=== PATIENT | male | born 1945 | race Caucasian/White ===

== ENCOUNTER 2019-11-25 17:41 | Inpatient (IN) | payer MEDICARE ==
[2019-11-25] MEDS ORDERED: SODIUM CHLORIDE 0.9% 500 ML 500 ML IV STA (17:59)
[2019-11-25] MEDS ORDERED: IPRATROPIUM-ALBUTEROL 3 ML NEB INHALATION STA (18:00)
[2019-11-25] MEDS ORDERED: ACETAMINOPHEN TAB 500 MG TAB PO STA (18:00)
[2019-11-25 18:33] LABS: VBG PH 7.36 (7.31-7.41)
[2019-11-25 18:36] LABS: Basophils % (A) 1 %; Eosinophils # (A) 0.1 k/uL (0-0.7); Eosinophils % (A) 1 %; HCT 39.8 % (39.0-53.0); HGB 13.1 gm/dL (13.0-17.5); Lymphocytes # (A) 0.3 k/uL (1.0-4.8); Lymphocytes % (A) 5 %; MCH 30.6 pg (25.0-35.0); MCHC 32.8 g/dL (31.0-37.0); MCV 93.3 fL (80.0-100.0); Mean Platelet Volume 8.5; Monocytes # (A) 0.2 k/uL (0-1.0); Monocytes % (A) 3 %; Neutrophils # (A) 6.2 k/uL (1.3-7.7); Neutrophils % (A) 90 %; Platelet Count 159 k/uL (150-450); RBC 4.27 m/uL (4.30-5.90); RDW 13.4 % (11.5-15.5); WBC 6.9 k/uL (3.8-10.6)
[2019-11-25 18:40] LABS: Albumin 4.3 g/dL (3.5-5.0); Calcium 9.2 mg/dL (8.4-10.2); INR 2.5 (<1.2); Partial Thromboplastin Time 32.7 sec (22.0-30.0); Prothrombin Time 24.3 sec (9.0-12.0); Total Bilirubin 0.8 mg/dL (0.2-1.3); Total Protein 7.1 g/dL (6.3-8.2)
--- NOTE | 2019-11-25 19:07 | CT ---
EXAMINATION TYPE: CT brain wo con DATE OF EXAM: 11/25/2019 COMPARISON: None HISTORY: Altered mental status. CT DLP: 1182.4 mGycm Automated exposure control for dose reduction was used. Exam performed with no contrast. There is cerebral cortical atrophy. There is no mass effect nor midline shift. There is no sign of in tracranial hemorrhage. Calvarium is intact. IMPRESSION: Cerebral atrophy. No acute intracranial abnormality.
[2019-11-25] MEDS ORDERED: methylPREDNISolone SOD SUCCI 125 MG/2 ML VIAL IV STA (19:08)
--- NOTE | 2019-11-25 19:16 | XR ---
EXAMINATION TYPE: XR chest 2V DATE OF EXAM: 11/25/2019 COMPARISON: NONE HISTORY: Difficulty breathing TECHNIQUE: 2 views FINDINGS: Heart is normal. Lungs are clear of consolidation. There is some coarsening of the lower lo be lung markings. There are no hilar masses. Bony thorax is intact. IMPRESSION: Minimal pulmonary fibrotic changes. Normal heart. No heart failure.
--- NOTE | 2019-11-25 19:39 | ED ---
SOB HPI - General Chief Complaint: Shortness of Breath Stated Complaint: Weakness,Cough Time Seen by Provider: 11/25/19 17:50 Source: patient, EMS, RN notes reviewed Mode of arrival: EMS Limitations: no limitations - History of Present Illness Initial Comments: 74-year-old male presents emergency department via EMS from home with family concerns for weakness, difficulty breathing. Patient had increasing labored breathing or last couple days. Patient's found to be febrile in emergency department. Patient herself has no complaint other than he feels very weak. Family states that he is unable to even stand. Patient states that his legs to feel weak. Patient family states that he also been confused but has had no head injury recently. Patient denies headache, blurred vision or focal weakness. Patient does take Coumadin for clotting disorder. Patient is a daily smoker history of COPD. Patient has nonproductive cough no recent Tylenol Motrin for his fever. - Related Data Allergies Allergy/AdvReac Type Severity Reaction Status Date / Time No Known Allergies Allergy Verified 11/25/19 18:21 Review of Systems ROS Statement: Those systems with pertinent positive or pertinent negative responses have been documented in the HPI. ROS Other: All systems not noted in ROS Statement are negative. Past Medical History Past Medical History: Unable to Obtain History of Any Multi-Drug Resistant Organisms: Unobtainable Past Surgical History: Unable to Obtain Past Psychological History: Unable to Obtain Smoking Status: Current every day smoker Past Alcohol Use History: Daily Past Drug Use History: None Reported General Exam Limitations: no limitations General appearance: alert, in no apparent distress Head exam: Present: atraumatic, normocephalic, normal inspection Eye exam: Present: normal appearance, PERRL, EOMI. Absent: scleral icterus, conjunctival injection, periorbital swelling ENT exam: Present: normal exam, normal oropharynx, mucous membranes moist Neck exam: Present: normal inspection, full ROM. Absent: tenderness, meningismus, lymphadenopathy Respiratory exam: Present: respiratory distress (Mild to moderate), wheezes. Absent: normal lung sounds bilaterally, rales, rhonchi, stridor Cardiovascular Exam: Present: regular rate, normal rhythm, normal heart sounds. Absent: systolic murmur, diastolic murmur, rubs, gallop, clicks GI/Abdominal exam: Present: soft, normal bowel sounds. Absent: distended, tenderness, guarding, rebound, rigid Neurological exam: Present: alert, oriented X3, CN II-XII intact Skin exam: Present: warm, dry, intact, normal color. Absent: rash Course Vital Signs 11/25/19 11/25/19 11/25/19 17:45 19:22 19:40 Temperature 103 F H Pulse Rate 93 85 89 Respiratory 20 20 20 Rate Blood Pressure 147/129 O2 Sat by Pulse 95 Oximetry 11/25/19 11/25/19 20:09 20:25 Temperature 100.9 F H Pulse Rate 95 Respiratory 18 Rate Blood Pressure 120/68 O2 Sat by Pulse 97 Oximetry Medical Decision Making - Medical Decision Making 34 show male presented for fever, dyspnea, weakness. Labs appear to be unremarkable at this time. Patient continues to have some dyspnea, difficulty completing sentences. Patient is unable to ambulate secondary shortness breath and weakness. Patient will be admitted for COPD exacerbation was started on IV antibiotics, steroids further treatment. - Lab Data Result diagrams: 11/25/19 18:15 11/25/19 18:15 Lab Results 11/25/19 11/25/19 11/25/19 Range/Units 18:15 18:15 18:15 WBC 6.9 (3.8-10.6) k/uL RBC 4.27 L (4.30-5.90) m/uL Hgb 13.1 (13.0-17.5) gm/dL Hct 39.8 (39.0-53.0) % MCV 93.3 (80.0-100.0) fL MCH 30.6 (25.0-35.0) pg MCHC 32.8 (31.0-37.0) g/dL RDW 13.4 (11.5-15.5) % Plt Count 159 (150-450) k/uL Neutrophils % 90 % Lymphocytes % 5 % Monocytes % 3 % Eosinophils % 1 % Basophils % 1 % Neutrophils # 6.2 (1.3-7.7) k/uL Lymphocytes # 0.3 L (1.0-4.8) k/uL Monocytes # 0.2 (0-1.0) k/uL Eosinophils # 0.1 (0-0.7) k/uL Basophils # 0.0 (0-0.2) k/uL PT (9.0-12.0) sec INR (<1.2) APTT (22.0-30.0) sec VBG pH (7.31-7.41) VBG pCO2 (37-51) mmHg VBG HCO3 (24-28) mmol/L Sodium 139 (137-145) mmol/L Potassium 4.0 (3.5-5.1) mmol/L Chloride 104 (98-107) mmol/L Carbon Dioxide 28 (22-30) mmol/L Anion Gap 7 mmol/L BUN 15 (9-20) mg/dL Creatinine 0.98 (0.66-1.25) mg/dL Est GFR (CKD-EPI)AfAm 87 (>60 ml/min/1.73 sqM) Est GFR (CKD-EPI)NonAf 75 (>60 ml/min/1.73 sqM) Glucose 114 H (74-99) mg/dL Plasma Lactic Acid Marcellus 1.2 (0.7-2.0) mmol/L Calcium 9.2 (8.4-10.2) mg/dL Magnesium 2.0 (1.6-2.3) mg/dL Total Bilirubin 0.8 (0.2-1.3) mg/dL AST 19 (17-59) U/L ALT 11 (4-49) U/L Alkaline Phosphatase 93 (38-126) U/L Troponin I (0.000-0.034) ng/mL NT-Pro-B Natriuret Pep pg/mL Total Protein 7.1 (6.3-8.2) g/dL Albumin 4.3 (3.5-5.0) g/dL Influenza Type A RNA (Not Detectd) Influenza Type B (PCR) (Not Detectd) 11/25/19 11/25/19 11/25/19 Range/Units 18:15 18:15 18:15 WBC (3.8-10.6) k/uL RBC (4.30-5.90) m/uL Hgb (13.0-17.5) gm/dL Hct (39.0-53.0) % MCV (80.0-100.0) fL MCH (25.0-35.0) pg MCHC (31.0-37.0) g/dL RDW (11.5-15.5) % Plt Count (150-450) k/uL Neutrophils % % Lymphocytes % % Monocytes % % Eosinophils % % Basophils % % Neutrophils # (1.3-7.7) k/uL Lymphocytes # (1.0-4.8) k/uL Monocytes # (0-1.0) k/uL Eosinophils # (0-0.7) k/uL Basophils # (0-0.2) k/uL PT 24.3 H (9.0-12.0) sec INR 2.5 H (<1.2) APTT 32.7 H (22.0-30.0) sec VBG pH (7.31-7.41) VBG pCO2 (37-51) mmHg VBG HCO3 (24-28) mmol/L Sodium (137-145) mmol/L Potassium (3.5-5.1) mmol/L Chloride (98-107) mmol/L Carbon Dioxide (22-30) mmol/L Anion Gap mmol/L BUN (9-20) mg/dL Creatinine (0.66-1.25) mg/dL Est GFR (CKD-EPI)AfAm (>60 ml/min/1.73 sqM) Est GFR (CKD-EPI)NonAf (>60 ml/min/1.73 sqM) Glucose (74-99) mg/dL Plasma Lactic Acid Marcellus (0.7-2.0) mmol/L Calcium (8.4-10.2) mg/dL Magnesium (1.6-2.3) mg/dL Total Bilirubin (0.2-1.3) mg/dL AST (17-59) U/L ALT (4-49) U/L Alkaline Phosphatase (38-126) U/L Troponin I <0.012 (0.000-0.034) ng/mL NT-Pro-B Natriuret Pep 171 pg/mL Total Protein (6.3-8.2) g/dL Albumin (3.5-5.0) g/dL Influenza Type A RNA (Not Detectd) Influenza Type B (PCR) (Not Detectd) 11/25/19 11/25/19 Range/Units 18:15 19:40 WBC (3.8-10.6) k/uL RBC (4.30-5.90) m/uL Hgb (13.0-17.5) gm/dL Hct (39.0-53.0) % MCV (80.0-100.0) fL MCH (25.0-35.0) pg MCHC (31.0-37.0) g/dL RDW (11.5-15.5) % Plt Count (150-450) k/uL Neutrophils % % Lymphocytes % % Monocytes % % Eosinophils % % Basophils % % Neutrophils # (1.3-7.7) k/uL Lymphocytes # (1.0-4.8) k/uL Monocytes # (0-1.0) k/uL Eosinophils # (0-0.7) k/uL Basophils # (0-0.2) k/uL PT (9.0-12.0) sec INR (<1.2) APTT (22.0-30.0) sec VBG pH 7.36 (7.31-7.41) VBG pCO2 50 (37-51) mmHg VBG HCO3 28 (24-28) mmol/L Sodium (137-145) mmol/L Potassium (3.5-5.1) mmol/L Chloride (98-107) mmol/L Carbon Dioxide (22-30) mmol/L Anion Gap mmol/L BUN (9-20) mg/dL Creatinine (0.66-1.25) mg/dL Est GFR (CKD-EPI)AfAm (>60 ml/min/1.73 sqM) Est GFR (CKD-EPI)NonAf (>60 ml/min/1.73 sqM) Glucose (74-99) mg/dL Plasma Lactic Acid Marcellus (0.7-2.0) mmol/L Calcium (8.4-10.2) mg/dL Magnesium (1.6-2.3) mg/dL Total Bilirubin (0.2-1.3) mg/dL AST (17-59) U/L ALT (4-49) U/L Alkaline Phosphatase (38-126) U/L Troponin I (0.000-0.034) ng/mL NT-Pro-B Natriuret Pep pg/mL Total Protein (6.3-8.2) g/dL Albumin (3.5-5.0) g/dL Influenza Type A RNA Not Detected (Not Detectd) Influenza Type B (PCR) Not Detected (Not Detectd) Disposition Clinical Impression: COPD exacerbation, Weakness, Fever Disposition: ADMITTED IP TO THIS HOSP Condition: Fair Referrals: Fabian Whatley DO [Primary Care Provider] - 1-2 days
[2019-11-25] MEDS ORDERED: SODIUM CHLORIDE 0.9% 1,000 ML IV ONE (20:10)
[2019-11-25] MEDS ORDERED: AZITHROMYCIN 500 MG in SODIUM CHLORIDE 0.9% 250 ML IVPB STA (20:27)
[2019-11-25] MEDS: methylPREDNISolone SOD SUCCI 125 MG/2 ML VIAL IV SCH (23:17)
[2019-11-26] MEDS: methylPREDNISolone SOD SUCCI 125 MG/2 ML VIAL IV SCH ×3 (05:17→17:09)
[2019-11-26] MEDS: IPRATROPIUM-ALBUTEROL 3 ML NEB INHALATION SCH ×4 (08:03→19:28)
--- NOTE | 2019-11-26 11:44 | HP ---
HISTORY AND PHYSICAL CHIEF COMPLAINT: Shortness of breath and weakness. HISTORY OF PRESENT ILLNESS: This is the first known admission for this gentleman who was brought into the emergency room from home. He had been having increasing difficulty breathing on the last several days and presented with weakness and inability to stand or ambulate. The family indicated that he had recently become confused. He does smoke. REVIEW OF SYSTEMS: He denies any problems with headaches, chest pain, palpitations, orthopnea, PND, abdominal pain, nausea, vomiting, hematemesis, melena, hematochezia, diarrhea, jaundice, renal failure, dysuria, frequency, urgency, hematuria, etc. Past medical history, family history, personal and social histories reveal that he is not allergic to any medication. He is not currently on any medications at home apparently. In the emergency room, his chest x-ray was normal. A CT of the brain was also normal. Laboratory studies revealed a normal CBC. Electrolytes and kidney function were normal. Blood sugar was 114. Influenza was negative. PHYSICAL EXAM: Temperature was 100.9 with a pulse of 95, respirations 18 and blood pressure 120/68. In general, he appeared to be well developed, well nourished, and in no acute distress. Skin color is normal. Skin is warm, dry. Lymph nodes not enlarged. Head, ears, eyes, nose, mouth, and throat were normal and neck veins not distended. Thyroid not enlarged. Chest is clear. Cardiac exam demonstrated normal sinus rhythm and no murmurs or extra sounds. Abdomen is soft, nontender without any visceromegaly or masses. Bowel sounds present. Extremities are normal. Neurologically, he seemed to be intact. Cranial nerves and sensory motor exam were normal. He was slightly lethargic, but his normal mental state is not known. He is admitted to the hospital with diagnoses of: 1. Fever of unknown origin. 2. Generalized weakness. 3. Altered mental status. PLAN: 1. Bed rest. 2. IV fluids. 3. Appropriate cultures. 4. Treat as community-acquired pneumonia with antibiotics and updrafts. MMODL / IJN: [id number] /
[2019-11-26] MEDS: ASPIRIN 81 MG PO SCH (12:32)
[2019-11-26 13:23] LABS: INR 2.5 (<1.2); Prothrombin Time 23.9 sec (9.0-12.0)
[2019-11-26 15:58] LABS: Amorphous Sediment,Urine Rare /hpf; Hyaline Casts,Urine 1 /lpf (0-2); Mucus,Urine Occasional /hpf; RBC,Urine 3 /hpf (0-5); Squamous Epithelial Cell,Urine 1 /hpf (0-4); WBC,Urine 2 /hpf (0-5)
[2019-11-26 16:00] LABS: Urobilinogen,Urine 0.2 mg/dL (<2.0)
[2019-11-26 16:01] LABS: Appearance,Urine Clear (Clear); Color,Urine Dark Yellow; Protein,Urine 1+ (Negative)
[2019-11-26 16:02] LABS: Bilirubin,Urine Negative (Negative); Blood,Urine Small (Negative); Glucose,Urine (UA) Negative (Negative); Ketones,Urine Negative (Negative); Leukocyte Esterase,Urine Negative (Negative); Nitrite,Urine Negative (Negative)
--- NOTE | 2019-11-26 16:27 | CDI ---
Documentation Clarification Form Date: 11/26/2019 03:57:12 PM From: Dhara Thomas RN, CCDS Admit Date: 11/25/2019 09:56:00 PM Patient Name: Guanaco Hernandez Visit Number: [id number] Discharge Date: ATTENTION: The Clinical Documentation Specialists (CDI) and [facility] Coding Staff appreciate your assistance in clarifying documentation. Please respond to the clarification below the line at the bottom and electronically sign. The CDI & [facility] Coding staff will review the response and follow-up if needed. Please note: Queries are made part of the Legal Health Record. If you have any questions, please contact the author of this message via ITS. Dr. Danish Hudson Documentation of COPD exacerbation is located in the emergency room clinical impression on 11/25, but not in the H&P and further clarification is needed to rule COPD exacerbation in or out. History/Risk Factors: COPD, current every day smoker Clinical Indicators: 74-year-old male presents to emergency department via EMS with family concerns for weakness, difficulty breathing. Patient had increasing labored breathing for last couple of days per family. Patient family states that he also been confused. Patient has nonproductive cough. ED respiratory exam: respiratory distress (mild to moderate) wheezes. Vital signs 11/25 at 17:45: 147/129 93 20 103 95 % room air. 11/25 CXR: Minimal pulmonary fibrotic changes. Normal heart. No heart failure Treatment: Duoneb 0.5 mg/3ml soln Inhalation QID Zithromax 500 mg po HS Rocephin 1 gm IV Q 12 HR Solu-Medrol 125 mg IV X1 Solu-Medrol 60 Q 6 HR .9 Saline 1,000 ml @999 mls/hr IV X2 In your professional opinion, can you please clarify if the above findings and treatment signify any of the following? Acute Exacerbation of Chronic Obstructive Pulmonary Disease (COPD) Acute Exacerbation of Chronic Obstructive Pulmonary Disease (COPD) ruled out Other condition, please specify Unable to determine (Last Revision: July 2017) MTDD
[2019-11-26] MEDS ORDERED: WARFARIN 5 MG TAB PO SCH (18:00)
--- NOTE | 2019-11-26 19:38 | PN ---
PROGRESS NOTE DATE OF SERVICE: 11/26/2019 CHIEF COMPLAINT: Exacerbation of COPD, fever, generalized weakness and mental status changes. HISTORY OF PRESENT ILLNESS: This gentleman seems to be improving. His hydration is better and he is more alert. Temperature is down. REVIEW OF SYSTEMS: He denies chest pain, abdominal pain, chills, urinary complaints, etc. PHYSICAL EXAMINATION: His chest is clear. Cardiac exam is normal and the abdomen is soft and nontender. IMPRESSION: 1. Exacerbation of chronic obstructive pulmonary disease. 2. Fever of unknown origin. PLAN: Continue with IV fluids, updrafts, and antibiotics. MMODL / IJN: [id number] /
[2019-11-26] MEDS ORDERED: AZITHROMYCIN 500 MG in SODIUM CHLORIDE 0.9% 250 ML IVPB SCH (22:00)
[2019-11-26] MEDS: FOLIC ACID 1 MG TAB PO SCH (22:27)
[2019-11-26] MEDS: AZITHROMYCIN 500 MG TAB PO SCH (22:28)
[2019-11-27] MEDS: methylPREDNISolone SOD SUCCI 125 MG/2 ML VIAL IV SCH ×5 (00:54→23:54)
[2019-11-27 07:33] LABS: INR 3.2 (<1.2); Prothrombin Time 30.8 sec (9.0-12.0)
[2019-11-27] MEDS: IPRATROPIUM-ALBUTEROL 3 ML NEB INHALATION SCH ×4 (08:40→19:22)
[2019-11-27] MEDS: ASPIRIN 81 MG PO SCH (09:05)
--- NOTE | 2019-11-27 13:32 | PN ---
PROGRESS NOTE CHIEF COMPLAINT: COPD, fever and generalized weakness as well as mental status changes. HISTORY OF PRESENT ILLNESS: This gentleman seems to be improving. He is less short of breath. He is not running a fever. PHYSICAL EXAMINATION: Chest demonstrates occasional rhonchi and scattered rales. Cardiac exam is normal. Abdomen is soft and nontender. IMPRESSION: 1. Fever of unknown origin. 2. Chronic obstructive pulmonary disease. 3. Generalized weakness. 4. Mental status changes. PLAN: Continue with current treatment and he can probably go home in the next day or 2. MMODL / IJN: [id number] /
[2019-11-27] MEDS ORDERED: WARFARIN 2 MG TAB PO SCH (18:00)
[2019-11-27] MEDS: AZITHROMYCIN 500 MG TAB PO SCH (21:03)
[2019-11-27] MEDS: FOLIC ACID 1 MG TAB PO SCH (21:03)
[2019-11-27 21:04] LABS: Glucose,Whole Blood 165 mg/dL (75-99)
[2019-11-28] MEDS: methylPREDNISolone SOD SUCCI 125 MG/2 ML VIAL IV SCH (05:11)
[2019-11-28 07:58] LABS: INR 3.6 (<1.2)
[2019-11-28] MEDS: IPRATROPIUM-ALBUTEROL 3 ML NEB INHALATION SCH ×2 (08:05→12:10)
[2019-11-28] MEDS: ASPIRIN 81 MG PO SCH (08:46)
[2019-11-28 08:57] VITALS: BP 147/66; PULSE 68; RESP 18; TEMP 97.5
[2019-11-28] MEDS ORDERED: WARFARIN 0.5 MG TAB PO ONE (18:00)
--- NOTE | 2019-11-28 19:51 | DS ---
DISCHARGE SUMMARY CHIEF COMPLAINT: Difficulty breathing with fever and chills. HISTORY OF PRESENT ILLNESS AND PHYSICAL EXAMINATION: Details of this man's history and physical can be found in the initial workup. LABORATORY STUDIES: While he was in the hospital he had laboratory studies, details of which can be found in the laboratory section of his chart. COURSE IN THE HOSPITAL: After admission he was placed on bedrest, started on intravenous fluids and updrafts as well as IV and inhaled steroids. Chest improved and he was doing well it was felt that he could go home. He will go home on nebulized DuoNeb along with his other usual medications and he will follow up in the office in a few days. FINAL DIAGNOSES: 1. Exacerbation of chronic obstructive pulmonary disease. 2. Fever of undetermined origin. OPERATIONS: None. CONSULTATIONS: None. He is improved. MMODL / IJN: [id number] /
[2019-11-29] MEDS ORDERED: methylPREDNISolone 4 MG TAB TAPER PO SCH (09:00)
--- NOTE | 2019-11-29 11:13 | CDI ---
Documentation Clarification Form Date: 11/29/2019 10:49:02 AM From: Monica Muniz Phone: If you have a question about this query, please contact Lary Matt Box Person at [phone] between 8am and 5pm Admit Date: 11/25/2019 09:56:00 PM Patient Name: Guanaco Hernandez Visit Number: [id number] Discharge Date: 11/28/2019 12:09:00 PM ATTENTION: The Clinical Documentation Specialists (CDI) and [facility] Coding Staff appreciate your assistance in clarifying documentation. Please respond to the clarification below the line at the bottom and electronically sign. The CDI & [facility] Coding staff will review the response and follow-up if needed. Please note: Queries are made part of the Legal Health Record. If you have any questions, please contact the author of this message via ITS. Dr. Danish Hudson H and P documents "Treat as CAP with antibiotics and updrafts. Diagnosis of pneumonia is not carried through to [facility] where fever of undermined origin is documented. Please clarify if patient was being treated for pneumonia or was pneumonia ruled out. History/Risk Factors: COPD, smoker, cough Vital signs: 103 F, 93 bpm, 20, 147/129, 95% RA WBC/Left shift: 6.9 X-ray: fibrotic changes Treatment: updrafts and antibiotics In order to capture the severity of condition, please clarify if patient was being treated for: Pneumonia Pneumonia ruled out Other condition Please specify MTDD
--- NOTE | 2019-12-03 16:26 | MISC ---
MISCELLANOUS REPORT QUERY: Acute exacerbation of chronic COPD. MMODL / IJN: [id number] /
--- NOTE | 2019-12-03 16:29 | MISC ---
MISCELLANOUS REPORT QUERY: Pneumonia is ruled out. MMODL / IJN: [id number] /
--- NOTE | 2019-12-04 11:53 | MISC ---
MISCELLANOUS REPORT QUERY: Acute exacerbation of chronic COPD. MMODL / IJN: [id number] /
--- NOTE | 2019-12-18 08:31 | CDI ---
Documentation Clarification Form Date: 12/18/2019 08:09:35 AM From: Monica Muniz Phone: If you have a question about this query, please contact Lary Matt Religious Education Coordinator at [phone] between 8am and 5pm. Admit Date: 11/25/2019 09:56:00 PM Patient Name: Guanaco Hernandez Visit Number: [id number] Discharge Date: 11/28/2019 12:09:00 PM ATTENTION: The Clinical Documentation Specialists (CDI) and [facility] Coding Staff appreciate your assistance in clarifying documentation. Please respond to the clarification below the line at the bottom and electronically sign. The CDI & [facility] Coding staff will review the response and follow-up if needed. Please note: Queries are made part of the Legal Health Record. If you have any questions, please contact the author of this message via ITS. Dr. Danish Hudson Conflicting documentation has been found in the medical record: ER provider documents patient to be on home Coumadin due to clotting disorder. H and P documents patient not on any home medications. MAR confirms patient's home medications include Coumadin. Please clarify if patient on Coumadin and the reason for the patient being treated with Coumadin. History/Risk Factors: Clinical Indicators: Treatment: Ordered PT/INR Coumadin ordered In your opinion, what is the most clinically appropriate diagnosis for this patient on Coumadin? clotting factor coagulation defect elevation of INR / PT Other explanation of clinical findings Unable to determine (no explanation for clinical findings) MTDD
--- NOTE | 2019-12-18 13:38 | MISC ---
MISCELLANOUS REPORT QUERY: Diagnosis for this patient on Coumadin, unable to determine. MMODL / IJN: [id number] /
== END 2019-11-28 12:09 | disposition home or self-care (01) | DRG 192 ==
LOC: EC 17:41 → OBSVTOIN 21:56 → 4SSUR 21:56 → INTOOBSV 21:56
PROVIDERS: ADMIT Family Medicine; ATTEND Family Medicine
DX: J44.1 Chronic obstructive pulmonary disease with (acute) exacerbation (principal); F17.210 Nicotine dependence, cigarettes, uncomplicated; Z79.01 Long term (current) use of anticoagulants
CPT/HCPCS: 36415; 70450; 71046; 80053; 81001; 82803; 83605; 83735; 83880; 84484; 85025; 85610; 85730; 87040; 87502; 93005; 94640; 96361; 96365; 96366; 96367; 96375; 99285

== ENCOUNTER 2019-12-21 14:43 | Inpatient (IN) | payer MEDICARE ==
[2019-12-21] MEDS ORDERED: IPRATROPIUM-ALBUTEROL 3 ML NEB INHALATION STA (14:59)
--- NOTE | 2019-12-21 15:06 | ED ---
General Adult HPI - General Chief complaint: Shortness of Breath Stated complaint: SOB Time Seen by Provider: 12/21/19 14:52 Source: patient, RN notes reviewed Mode of arrival: EMS Limitations: no limitations - History of Present Illness Initial comments: Patient is a pleasant 74-year-old male presenting to the emergency Department with complaints of difficulty in breathing. Onset of symptoms was past day or 2. Patient has been coughing. Cough is been nonproductive. No fevers. Patient does have similar symptoms previously associated with COPD. No leg pain or leg swelling. No chest pain. Patient is on Coumadin secondary to history mthr - Related Data Home Medications Medication Instructions Recorded Confirmed Aspirin EC [Ecotrin Low Dose] 81 mg PO DAILY 11/26/19 11/26/19 Folic Acid 1 mg PO HS 11/26/19 11/26/19 Warfarin [Coumadin] 5 mg PO DAILY 11/26/19 11/26/19 Previous Rx's Medication Instructions Recorded Azithromycin [Zithromax] 500 mg PO HS #7 tab 11/28/19 Ipratropium-Albuterol Nebulize 3 ml INHALATION RT-QID #120 ml 11/28/19 [Duoneb 0.5 mg-3 mg/3 ml Soln] methylPREDNISolone Dose Pack 1 mg PO DAILY 7 Days #1 dosepack 11/28/19 [Medrol Dose Pack] Allergies Allergy/AdvReac Type Severity Reaction Status Date / Time No Known Allergies Allergy Verified 11/25/19 18:21 Review of Systems ROS Statement: Those systems with pertinent positive or pertinent negative responses have been documented in the HPI. ROS Other: All systems not noted in ROS Statement are negative. Constitutional: Denies: fever Eyes: Denies: eye pain ENT: Denies: ear pain Respiratory: Reports: cough, dyspnea Cardiovascular: Denies: chest pain Endocrine: Reports: fatigue Gastrointestinal: Denies: abdominal pain Genitourinary: Denies: dysuria Musculoskeletal: Denies: back pain Skin: Denies: rash Neurological: Denies: weakness Past Medical History Past Medical History: COPD Additional Past Medical History / Comment(s): MTHR- Vacular disease History of Any Multi-Drug Resistant Organisms: None Reported Past Surgical History: Unable to Obtain Additional Past Surgical History / Comment(s): right hip fx, Past Anesthesia/Blood Transfusion Reactions: No Reported Reaction Past Psychological History: No Psychological Hx Reported Smoking Status: Current every day smoker Past Alcohol Use History: Daily Past Drug Use History: None Reported General Exam Limitations: no limitations General appearance: alert, in no apparent distress Head exam: Present: normocephalic Eye exam: Present: normal appearance ENT exam: Present: normal oropharynx Neck exam: Present: normal inspection Respiratory exam: Present: rhonchi Cardiovascular Exam: Present: regular rate, normal rhythm GI/Abdominal exam: Present: soft. Absent: tenderness Extremities exam: Present: normal inspection. Absent: pedal edema, calf tenderness Neurological exam: Present: alert Psychiatric exam: Present: normal affect, normal mood Skin exam: Present: normal color Course Vital Signs 12/21/19 12/21/19 12/21/19 14:46 14:57 15:38 Temperature 99.7 F H Pulse Rate 103 H 82 Respiratory 22 Rate Blood Pressure 131/62 O2 Sat by Pulse 99 Oximetry 12/21/19 12/21/19 12/21/19 15:50 16:13 17:55 Temperature 102.6 F H Pulse Rate 82 11 L Respiratory 21 Rate Blood Pressure 111/38 O2 Sat by Pulse 99 Oximetry - Reevaluation(s) Reevaluation #1: 12/21/19 16:45 Patient does meet sepsis criteria diagnosed at 1630. Blood culture and lactic acid and IV antibiotics ordered. EKG Findings - EKG Comments: EKG Findings:: Normal sinus rhythm 97. TN 140. QRS 84. QT 340. QTc 431. Normal axis. Normal QRS. Nonspecific ST-T. Procedures - Sepsis Sepsis Focused Exam #1 Time Sepsis Criteria Met: 16:10 Sepsis Focused Exam Date: 12/21/19 Sepsis Focused Exam Time: 17:59 Sepsis Focused Exam Complete: Yes Vital Signs & RN Notes Reviewed: Yes Capillary Refill: None: Toes, < 2 Seconds: Fingers Peripheral Pulses: Normal: Radial (R), Radial (L) Skin Color: Normal for Patient Respiratory Exam: normal lung sounds Cardiovascular Exam: regular rate, normal rhythm Medical Decision Making - Medical Decision Making Patient reevaluated. Patient family updated on results and plan. Case was discussed in detail with Dr. Garcia, who will admit covered for hospital call. Case also discussed with Dr. Ga, who will consult. Blood transfusion given. - Lab Data Result diagrams: 12/21/19 14:15 12/21/19 14:15 Lab Results 12/21/19 12/21/19 12/21/19 Range/Units 14:15 14:15 14:15 WBC 5.1 (3.8-10.6) k/uL RBC 2.13 L (4.30-5.90) m/uL Hgb 6.2 L* D (13.0-17.5) gm/dL Hct 20.2 L (39.0-53.0) % MCV 95.3 (80.0-100.0) fL MCH 29.0 (25.0-35.0) pg MCHC 30.4 L (31.0-37.0) g/dL RDW 16.0 H (11.5-15.5) % Plt Count 263 (150-450) k/uL Neutrophils % 86 % Lymphocytes % 8 % Monocytes % 4 % Eosinophils % 1 % Basophils % 0 % Neutrophils # 4.4 (1.3-7.7) k/uL Lymphocytes # 0.4 L (1.0-4.8) k/uL Monocytes # 0.2 (0-1.0) k/uL Eosinophils # 0.0 (0-0.7) k/uL Basophils # 0.0 (0-0.2) k/uL Hypochromasia Marked Poikilocytosis Slight PT 28.6 H (9.0-12.0) sec INR 2.9 H (<1.2) APTT 30.2 H (22.0-30.0) sec Sodium 140 (137-145) mmol/L Potassium 4.3 (3.5-5.1) mmol/L Chloride 110 H (98-107) mmol/L Carbon Dioxide 21 L (22-30) mmol/L Anion Gap 9 mmol/L BUN 20 (9-20) mg/dL Creatinine 0.86 (0.66-1.25) mg/dL Est GFR (CKD-EPI)AfAm >90 (>60 ml/min/1.73 sqM) Est GFR (CKD-EPI)NonAf 84 (>60 ml/min/1.73 sqM) Glucose 96 (74-99) mg/dL Plasma Lactic Acid Marcellus (0.7-2.0) mmol/L Calcium 8.6 (8.4-10.2) mg/dL Total Bilirubin 0.9 (0.2-1.3) mg/dL AST 25 (17-59) U/L ALT 17 (4-49) U/L Alkaline Phosphatase 72 (38-126) U/L Troponin I (0.000-0.034) ng/mL NT-Pro-B Natriuret Pep pg/mL Total Protein 5.9 L (6.3-8.2) g/dL Albumin 3.4 L (3.5-5.0) g/dL Stool Occult Blood (Negative) 12/21/19 12/21/19 12/21/19 Range/Units 14:15 14:15 14:15 WBC (3.8-10.6) k/uL RBC (4.30-5.90) m/uL Hgb (13.0-17.5) gm/dL Hct (39.0-53.0) % MCV (80.0-100.0) fL MCH (25.0-35.0) pg MCHC (31.0-37.0) g/dL RDW (11.5-15.5) % Plt Count (150-450) k/uL Neutrophils % % Lymphocytes % % Monocytes % % Eosinophils % % Basophils % % Neutrophils # (1.3-7.7) k/uL Lymphocytes # (1.0-4.8) k/uL Monocytes # (0-1.0) k/uL Eosinophils # (0-0.7) k/uL Basophils # (0-0.2) k/uL Hypochromasia Poikilocytosis PT (9.0-12.0) sec INR (<1.2) APTT (22.0-30.0) sec Sodium (137-145) mmol/L Potassium (3.5-5.1) mmol/L Chloride (98-107) mmol/L Carbon Dioxide (22-30) mmol/L Anion Gap mmol/L BUN (9-20) mg/dL Creatinine (0.66-1.25) mg/dL Est GFR (CKD-EPI)AfAm (>60 ml/min/1.73 sqM) Est GFR (CKD-EPI)NonAf (>60 ml/min/1.73 sqM) Glucose (74-99) mg/dL Plasma Lactic Acid Marcellus 4.7 H* (0.7-2.0) mmol/L Calcium (8.4-10.2) mg/dL Total Bilirubin (0.2-1.3) mg/dL AST (17-59) U/L ALT (4-49) U/L Alkaline Phosphatase (38-126) U/L Troponin I <0.012 (0.000-0.034) ng/mL NT-Pro-B Natriuret Pep 180 pg/mL Total Protein (6.3-8.2) g/dL Albumin (3.5-5.0) g/dL Stool Occult Blood (Negative) 12/21/19 Range/Units 16:23 WBC (3.8-10.6) k/uL RBC (4.30-5.90) m/uL Hgb (13.0-17.5) gm/dL Hct (39.0-53.0) % MCV (80.0-100.0) fL MCH (25.0-35.0) pg MCHC (31.0-37.0) g/dL RDW (11.5-15.5) % Plt Count (150-450) k/uL Neutrophils % % Lymphocytes % % Monocytes % % Eosinophils % % Basophils % % Neutrophils # (1.3-7.7) k/uL Lymphocytes # (1.0-4.8) k/uL Monocytes # (0-1.0) k/uL Eosinophils # (0-0.7) k/uL Basophils # (0-0.2) k/uL Hypochromasia Poikilocytosis PT (9.0-12.0) sec INR (<1.2) APTT (22.0-30.0) sec Sodium (137-145) mmol/L Potassium (3.5-5.1) mmol/L Chloride (98-107) mmol/L Carbon Dioxide (22-30) mmol/L Anion Gap mmol/L BUN (9-20) mg/dL Creatinine (0.66-1.25) mg/dL Est GFR (CKD-EPI)AfAm (>60 ml/min/1.73 sqM) Est GFR (CKD-EPI)NonAf (>60 ml/min/1.73 sqM) Glucose (74-99) mg/dL Plasma Lactic Acid Marcellus (0.7-2.0) mmol/L Calcium (8.4-10.2) mg/dL Total Bilirubin (0.2-1.3) mg/dL AST (17-59) U/L ALT (4-49) U/L Alkaline Phosphatase (38-126) U/L Troponin I (0.000-0.034) ng/mL NT-Pro-B Natriuret Pep pg/mL Total Protein (6.3-8.2) g/dL Albumin (3.5-5.0) g/dL Stool Occult Blood Positive (Negative) Critical Care Time Critical Care Time: Yes Total Critical Care Time: 33 Disposition Clinical Impression: Pneumonia, Septic shock, Anemia Disposition: ADMITTED IP TO THIS [facility] Condition: Serious Is patient prescribed a controlled substance at d/c from ED?: No Decision Time: 16:46
[2019-12-21 15:24] LABS: Basophils % (A) 0 %; Eosinophils % (A) 1 %; HCT 20.2 % (39.0-53.0); Hypochromasia Marked; Lymphocytes # (A) 0.4 k/uL (1.0-4.8); Lymphocytes % (A) 8 %; MCHC 30.4 g/dL (31.0-37.0); MCV 95.3 fL (80.0-100.0); Mean Platelet Volume 8.4; Monocytes # (A) 0.2 k/uL (0-1.0); Monocytes % (A) 4 %; Neutrophils # (A) 4.4 k/uL (1.3-7.7); Neutrophils % (A) 86 %; Platelet Count 263 k/uL (150-450); Poikilocytosis Slight; RBC 2.13 m/uL (4.30-5.90); WBC 5.1 k/uL (3.8-10.6)
[2019-12-21 15:33] LABS: ALT 17 U/L (4-49); AST 25 U/L (17-59); African American GFR (CKD) >90 (>60 ml/min/1.73 sqM); Albumin 3.4 g/dL (3.5-5.0); Alkaline Phosphatase 72 U/L (38-126); Anion Gap 9 mmol/L; Blood Urea Nitrogen 20 mg/dL (9-20); Calcium 8.6 mg/dL (8.4-10.2); Carbon Dioxide 21 mmol/L (22-30); Chloride 110 mmol/L (98-107); Glucose 96 mg/dL (74-99); Non-African American GFR(CKD) 84 (>60 ml/min/1.73 sqM); Potassium 4.3 mmol/L (3.5-5.1); Sodium 140 mmol/L (137-145); Total Bilirubin 0.9 mg/dL (0.2-1.3); Total Protein 5.9 g/dL (6.3-8.2)
[2019-12-21 15:35] LABS: HGB 6.2 gm/dL (13.0-17.5)
[2019-12-21 15:48] LABS: INR 2.9 (<1.2); Partial Thromboplastin Time 30.2 sec (22.0-30.0); Prothrombin Time 28.6 sec (9.0-12.0)
--- NOTE | 2019-12-21 16:22 | XR ---
EXAMINATION TYPE: XR chest 2V DATE OF EXAM: 12/21/2019 COMPARISON: Prior chest x-ray 11/25/2019 HISTORY: Difficulty breathing TECHNIQUE: Frontal and lateral views of the chest are obtained on 3 images. FINDINGS: There is been interval development of patchy density at the right costophrenic angle level . No other significant interval change. IMPRESSION: Correlate for right lower lobe pneumonia.
[2019-12-21] MEDS ORDERED: PANTOPRAZOLE 40 MG/10 ML VIAL IVP STA (16:26)
[2019-12-21] MEDS ORDERED: SODIUM CHLORIDE 0.9% 1,000 ML IV STA ×2 (16:27)
[2019-12-21] MEDS ORDERED: PNEUMONIA PROTOCOL UTILIZED 1 EACH MISC PO PRN (16:42)
[2019-12-21] MEDS ORDERED: AZITHROMYCIN 500 MG in SODIUM CHLORIDE 0.9% 250 ML IVPB STA (16:42)
[2019-12-21] MEDS ORDERED: IPRATROPIUM-ALBUTEROL 3 ML NEB INHALATION PRN (16:42)
[2019-12-21] MEDS: SODIUM CHLORIDE 0.9% 1,000 ML IV SCH (17:39)
[2019-12-21] MEDS ORDERED: ACETAMINOPHEN TAB 325 MG TAB PO STA (17:50)
[2019-12-21 18:10] LABS: Glucose,Whole Blood 105 mg/dL (75-99)
[2019-12-21] MEDS ORDERED: SODIUM CHLORIDE 0.9% 1,000 ML IV ONE (19:13)
[2019-12-21] MEDS: IPRATROPIUM-ALBUTEROL 3 ML NEB INHALATION SCH (20:36)
[2019-12-21] MEDS ORDERED: ACETAMINOPHEN TAB 500 MG TAB PO PRN (21:14)
[2019-12-21] MEDS ORDERED: HYDROcodone/APAP 5-325MG 1 EACH TAB PO PRN (21:14)
[2019-12-21] MEDS ORDERED: ALPRAZolam 0.25 MG TAB PO PRN (21:14)
[2019-12-21] MEDS ORDERED: HYDROmorphone 0.5 MG/0.5 ML SYRINGE IVP PRN (21:14)
[2019-12-21 22:40] LABS: Appearance,Urine Clear (Clear); Bilirubin,Urine Negative (Negative); Blood,Urine Trace (Negative); Color,Urine Yellow; Glucose,Urine (UA) Negative (Negative); Ketones,Urine Negative (Negative); Leukocyte Esterase,Urine Negative (Negative); Mucus,Urine Rare /hpf; Nitrite,Urine Negative (Negative); Protein,Urine Negative (Negative); RBC,Urine 1 /hpf (0-5); Squamous Epithelial Cell,Urine <1 /hpf (0-4); Urobilinogen,Urine <2.0 mg/dL (<2.0); WBC,Urine 1 /hpf (0-5)
[2019-12-21 22:56] LABS: Anisocytosis Slight; Hypochromasia Marked; MCHC 30.6 g/dL (31.0-37.0); MCV 94.6 fL (80.0-100.0); Mean Platelet Volume 7.8; Platelet Count 186 k/uL (150-450); Poikilocytosis Moderate; RBC 2.07 m/uL (4.30-5.90); RDW 16.6 % (11.5-15.5); WBC 6.2 k/uL (3.8-10.6)
--- NOTE | 2019-12-21 23:01 | HP ---
HISTORY AND PHYSICAL CHIEF COMPLAINTS: Shortness of breath and cough and fever. HISTORY OF PRESENT ILLNESS: This 74-year-old gentleman with a past medical history of multiple medical problems, including COPD, MTHFR, history of vascular disease, history of continued ongoing nicotine dependence, history of EtOH, being followed by Dr. Fabian Whatley in the outpatient setting, presented to [facility] with complaints of shortness of breath and cough and sputum. The patient apparently saw Dr. Jordan also. The patient also had COPD. The patient had a previous admission COPD as well. Apparently chest x- ray showed evidence of right lower pneumonia. Patient was short of breath also. Sepsis was suspected. Lactic acid was elevated. The patient was admitted for further evaluation and treatment. There is no history of any headache, loss of consciousness, seizures at this time. The patient is followed by Dr. Fabian Whatley in [place]. The hemoglobin was found to be 6.2. Stool OB was also positive. PAST MEDICAL HISTORY: History of COPD and MTHFR. MEDICATIONS PRIOR TO ADMISSION: Include folic acid 1 mg at bedtime, aspirin 81 mg daily, Coumadin 5 mg p.o. daily, DuoNeb q.i.d. p.r.n. ALLERGIES: NONE. FAMILY HISTORY: No history of heart disease or strokes in the family. SOCIAL HISTORY: History of smoking. Alcohol on a daily basis. REVIEW OF SYSTEMS: ENT: Diminished hearing. Diminished vision. CARDIOVASCULAR SYSTEM: No angina, palpitations. RESPIRATORY SYSTEM: As mentioned earlier. GI: No nausea, vomiting. : No dysuria or retention. NERVOUS SYSTEM: No numbness, weakness. ALLERGY/IMMUNOLOGY: No asthma, hayfever. MUSCULOSKELETAL: As mentioned earlier. HEMATOLOGY/ONCOLOGY: No history of anemia. ENDOCRINE: No history of diabetes, hypothyroidism. CONSTITUTIONAL: As mentioned earlier. DERMATOLOGY: Negative. RHEUMATOLOGY: Negative. PSYCHIATRY: As mentioned earlier. PHYSICAL EXAMINATION: Patient is alert and oriented x3. Pulse 81, blood pressure 98/67, respiration 18, temperature 98.3, pulse ox 97% on 2 L. HEENT: Conjunctivae normal. NECK: No jugular venous distention. CARDIOVASCULAR SYSTEM: S1, S2 muffled. RESPIRATORY SYSTEM: Breath sounds diminished at the bases. Bilateral scattered rhonchi and crackles. ABDOMEN: Soft, non-tender. LEGS: No edema. No swelling. NERVOUS SYSTEM: Higher functions as mentioned earlier. Moves all 4 limbs. No focal motor or sensory deficit. LYMPHATICS: No lymph node palpable in neck, axillae or groin. SKIN: No ulcer, rash, bleeding. JOINTS: No active deforming arthropathy. LABS: WBC 5.1, hemoglobin 6.2. INR 2.9. Plasma lactic acid noted. ASSESSMENT: 1. Chronic obstructive pulmonary disease, acute exacerbation, with acute right lower lobe pneumonia, possibly Gram-negative with sepsis, present on admission. 2. Anemia, possibly acute on chronic gastrointestinal blood loss, for further evaluation. 3. Elevated plasma lactic acid, possibly secondary to sepsis. 4. Continued ongoing nicotine dependence. 5. History of ETOH. 6. History of chronic obstructive pulmonary disease. 7. History of MTHFR. 8. History of degenerative joint disease. 9. Mild protein-calorie malnutrition. RECOMMENDATIONS AND DISCUSSION: In this 74-year-old gentleman who presented with multiple complex medical issues, we will monitor the patient closely, continue the current medications, continue symptomatic treatment. I will initiate broad-spectrum IV antibiotics. I would also recommend bronchodilators. Pulmonary consultation. GI consultation for the possible GI hemorrhage, transfusion. One unit transfusion. Prognosis extremely guarded because of multiple complex medical issues. Avoid anticoagulants and antiplatelet agents for now. Discussed with the patient, who understands and agrees. Further recommendations to follow. A copy of this dictation is being forwarded to Dr. Fabian Whatley, who is the primary physician. BRENNAL / FRANNIEN: [id number] /
[2019-12-21 23:14] LABS: HCT 19.5 % (39.0-53.0)
[2019-12-22] MEDS: NICOTINE 14MG/24HR PATCH TRANSDERM SCH ×2 (00:29→11:20)
[2019-12-22] MEDS: SODIUM CHLORIDE 0.9% 1,000 ML IV SCH ×3 (00:30→16:24)
[2019-12-22 06:17] LABS: Anisocytosis Slight; Basophils % (A) 0 %; Eosinophils # (A) 0.1 k/uL (0-0.7); Eosinophils % (A) 1 %; HCT 27.9 % (39.0-53.0); Hypochromasia Marked; Lymphocytes % (A) 16 %; MCH 28.1 pg (25.0-35.0); MCHC 30.8 g/dL (31.0-37.0); MCV 91.3 fL (80.0-100.0); Mean Platelet Volume 7.9; Monocytes # (A) 0.3 k/uL (0-1.0); Monocytes % (A) 5 %; Neutrophils # (A) 4.6 k/uL (1.3-7.7); Neutrophils % (A) 76 %; Platelet Count 172 k/uL (150-450); Poikilocytosis Marked; RBC 3.06 m/uL (4.30-5.90); RDW 16.6 % (11.5-15.5); WBC 6.1 k/uL (3.8-10.6)
[2019-12-22 06:21] LABS: HGB 8.6 gm/dL (13.0-17.5)
[2019-12-22 06:28] LABS: African American GFR (CKD) >90 (>60 ml/min/1.73 sqM); Anion Gap 2 mmol/L; Blood Urea Nitrogen 18 mg/dL (9-20); Calcium 7.3 mg/dL (8.4-10.2); Carbon Dioxide 22 mmol/L (22-30); Chloride 113 mmol/L (98-107); Glucose 90 mg/dL (74-99); Non-African American GFR(CKD) 89 (>60 ml/min/1.73 sqM); Potassium 4.1 mmol/L (3.5-5.1); Sodium 137 mmol/L (137-145)
[2019-12-22] MEDS: IPRATROPIUM-ALBUTEROL 3 ML NEB INHALATION SCH ×4 (07:21→20:31)
[2019-12-22 07:30] LABS: INR 2.2 (<1.2); Prothrombin Time 21.6 sec (9.0-12.0)
--- NOTE | 2019-12-22 08:05 | XR ---
EXAMINATION TYPE: XR chest 1V portable DATE OF EXAM: 12/22/2019 COMPARISON: 12/21/2019 HISTORY: Shortness of breath and right lower lobe pneumonia TECHNIQUE: Single frontal view of the chest is obtained. FINDINGS: Worsening right basilar consolidation and shifting of the right minor fissure inferiorly. Obscuration of the right costophrenic angle. Pulmonary hyperinflation of underlying COPD. Cardiomedia stinal silhouette is enlarged. Strand-like probable atelectasis at the left lung base. Diffuse osseou s demineralization. IMPRESSION: Worsening right basilar consolidation, likely pneumonia and strand-like left basilar inc reasing atelectasis.
[2019-12-22] MEDS: MULTIVITAMINS, THERA 1 EACH TAB PO SCH (11:21)
[2019-12-22] MEDS: FOLIC ACID 1 MG TAB PO SCH (11:21)
[2019-12-22] MEDS: PANTOPRAZOLE 40 MG/10 ML VIAL IVP SCH (11:21)
--- NOTE | 2019-12-22 11:21 | CONS ---
CONSULTATION DATE OF CONSULTATION: 12/22/2019 REQUESTING PHYSICIAN: Dr. Fabian Whatley. REASON FOR CONSULTATION: Symptomatic anemia and Hemoccult positive stool. HISTORY OF PRESENT ILLNESS: The patient is a 74 -year-old pleasant white male who came into the emergency room complaining of chronic cough and shortness of breath, as well as pneumonia. He has been having these symptoms for the last 3-4 days duration. In the ER, he was noted to have a hemoglobin of 6.5 g/dL with a Hemoccult-positive stool. Hence we are consulted in regards to this issue. The patient does not recall ever having anemia in the past. He received 3 units of blood transfusion and repeat hemoglobin is 8.7. He denies any abdominal pain. No nausea, vomiting. No rectal bleeding or melena. He does not recall ever having any endoscopy or colonoscopy in the past. He denies any prior history of peptic ulcer disease or recent NSAID use. He does have history of COPD and has been a chronic smoker. He quit smoking about a month ago. He also has history of heavy alcohol abuse, but no history of chronic liver disease. He has been on Coumadin which has been on hold. INR is 2.9. PAST MEDICAL HISTORY: Significant for COPD and MTHR, vascular disease. SOCIAL HISTORY: Chronic smoker. Alcohol use on a daily basis. MEDICATIONS: At home include: Aspirin, Coumadin, folic acid. REVIEW OF SYMPTOMS: CARDIOPULMONARY: He does complain of shortness of breath and chest pain. NEUROLOGY: Unremarkable. PSYCHIATRIC unremarkable. ENT/vision unremarkable. CONSTITUTIONAL: No recent weight loss. No fever, chills, night sweats. Genitourinary unremarkable. Hematology severe anemia. GI as mentioned above. PHYSICAL EXAMINATION: He appears comfortable. No apparent distress. Vital signs are stable. Blood pressure is 136/82, pulse rate 63 per minute and afebrile. HEENT: Examination unremarkable, conjunctivae are pink, sclerae anicteric. Oral cavity no lesions. NECK no JVD or lymph node enlargement. CHEST: Decreased breath sounds bilaterally. Some expiratory wheezing noted. ABDOMEN: Soft. Bowel sounds are positive. No organomegaly. EXTREMITIES: No pedal edema. SKIN no rashes. NEURO: He is alert and oriented x3. No focal deficits. LABS: WBC 6.2, hemoglobin 6, platelets 186. MCV is 94. INR is 2.9. Repeat INR today is pending. He received 3 units of blood transfusion. Hemoglobin is 8.6. BUN and creatinine are within normal limits. Plasma lactic acid was 3.1. Today it is 1.4. Influenza A and B are negative. RSV is negative. IMPRESSION: 1. Severe symptomatic normocytic anemia with Hemoccult-positive stool, but clinically no evidence of active ongoing bleeding, most likely we are dealing with occult gastrointestinal blood loss. The patient has been on Coumadin for history of peripheral vascular disease which has been on hold. INR is 2.9. No prior history of EGD or colonoscopy in the past. 2. Exacerbation of chronic obstructive pulmonary disease. 3. Pneumonia for which he is on antibiotics. 4. History of heavy alcohol use. 5. Lactic acidosis, which is improving. RECOMMENDATIONS: 1. Continue with antibiotics for pneumonia, he is on Zithromax and Rocephin. 2. Monitor CBC on a daily basis. 3. Once the pneumonia is improved, we will consider an EGD and colonoscopy to investigate the anemia during this hospitalization. The plan was discussed with the patient and he is agreeable to it. Thank you for this consultation. BRENNAL / IJN: [id number] /
--- NOTE | 2019-12-22 13:35 | P.CNPUL ---
History of Present Illness Consult date: 12/22/19 Reason for consult: dyspnea, pneumonia History of present illness: This is a very poor historian. This 74-year-old male patient is unable to v olunteer information. He is not aware of his condition. The pelvic to contact his about any further details about his condition. Upon further questioning, he reports to have some difficulties in breathing and cough which was nonproductive. He was brought into the hospital because of increased shortness of breath. Denied having any chest pain. No fever or chills. He has been on long-term medical condition with Coumadin as the patient has had some vascular intervention which seems to be an aortobifemoral bypass surgery as the patient was felt to have grafts in his femoral arteries bilaterally. He was also found to have some anemia. Hemoglobin at time of admission was 6.7 and dropped down to 6.0. He had alcohol stool positive for blood. He was anticoagulated with warfarin with a therapeutic PT/INR. In the ED, he had a fever. He was suspected of a right lower lobe pneumonia. Coronavirus was not a major concern as the patient doesn't have the typical history ordered 7 history or exposure. I put him and up at isolation. I admitted him to the intensive care unit as the patient had a right lower lobe pneumonia, GI bleed and some mild lactic acidosis. He was covered with accommodation Rocephin and Zithromax. the chest x-ray from today clearly shows a right lower lobe infiltration which has evolved compared to yesterday. He has received a total of 3 units of packed RBCs since yesterday and hemoglobin is above 8. He has also received a total of 3 L of IV fluids and his current maintenance at 130 mL an hour. Cultures of been sent. No significant respiratory distress on today's evaluation. He has a congested cough unable to bring up much sputum. He only had a 1 spike of fever and currently is afebrile. White cell count is not elevated. His Coumadin is currently on hold and INR today is at 2.2. Lactic acid level is down to 1.4. Influenza screen was negative. RSV screen was negative. Review of Systems Constitutional: Reports fever, Reports weakness Eyes: denies as per HPI, denies blurred vision, denies bulging eye, denies decreased vision, denies diplopia, denies discharge, denies dry eye, denies irritation, denies itching, denies pain, denies photophobia, denies loss of per ipheral vision, denies loss of vision, denies tunnel vision/blind spots Ears: deny: decreased hearing, ear discharge, earache, tinnitus Ears, nose, mouth and throat: Denies headache, Denies sore throat Cardiovascular: Reports decreased exercise tolerance, Reports dyspnea on exertion Respiratory: Reports cough, Reports dyspnea, Reports wheezing Gastrointestinal: Reports as per HPI, Reports melena Genitourinary: Reports as per HPI Musculoskeletal: Reports as per HPI Musculoskeletal: absent: ankle pain, ankle stiffness, ankle swelling Integumentary: Reports as per HPI Neurological: Reports as per HPI, Reports memory loss, Reports weakness Psychiatric: Reports as per HPI Endocrine: Reports as per HPI Hematologic/Lymphatic: Reports as per HPI Allergic/Immunologic: Reports as per HPI 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, COPD History of Any Multi-Drug Resistant Organisms: None Reported Past Surgical History: Unable to Obtain Additional Past Surgical History / Comment(s): right hip fx, Past Anesthesia/Blood Transfusion Reactions: No Reported Reaction Past Psychological History: No Psychological Hx Reported Smoking Status: Current every day smoker Past Alcohol Use History: Daily Past Drug Use History: None Reported Medications and Allergies Home Medications Medication Instructions Recorded Confirmed Type Aspirin EC [Ecotrin Low Dose] 81 mg PO DAILY 11/26/19 12/21/19 History Folic Acid 1 mg PO HS 11/26/19 12/21/19 History Warfarin [Coumadin] 5 mg PO DAILY 11/26/19 12/21/19 History Ipratropium-Albuterol Nebulize 3 ml INHALATION RT-QID PRN 12/21/19 12/21/19 History [Duoneb 0.5 mg-3 mg/3 ml Soln] Allergies Allergy/AdvReac Type Severity Reaction Status Date / Time No Known Allergies Allergy Verified 12/21/19 18:42 Physical Exam Vitals: Vital Signs Temp Pulse Pulse Resp BP BP Pulse Ox 12/22/19 09:00 65 25 H 110/61 97 12/22/19 08:00 97.7 F 67 22 126/58 97 12/22/19 07:34 85 12/22/19 07:23 86 12/22/19 07:00 63 16 133/66 99 12/22/19 06:00 68 23 108/48 98 12/22/19 05:00 62 15 107/60 97 12/22/19 04:08 97.4 F L 66 22 107/60 98 12/22/19 04:00 97.4 F L 76 16 102/48 97 12/22/19 03:00 64 24 110/53 98 12/22/19 02:52 98 F 76 20 110/53 98 12/22/19 02:51 98 F 72 16 110/53 98 12/22/19 02:29 97.9 F 68 15 103/54 98 12/22/19 02:21 97.9 F 64 15 103/54 99 12/22/19 02:11 98.1 F 65 22 112/60 12/22/19 02:00 70 21 99/46 96 12/22/19 01:50 97.9 F 72 18 99/46 97 12/22/19 01:00 71 20 122/55 97 12/22/19 00:24 98 F 75 20 122/55 97 12/22/19 00:00 98.2 F 75 19 112/55 98 12/21/19 23:54 98.2 F 80 22 109/45 98 12/21/19 23:44 98.0 F 82 24 112/55 97 12/21/19 23:00 76 22 115/51 97 12/21/19 22:00 89 21 115/51 98 12/21/19 21:55 98 F 83 20 102/60 97 12/21/19 21:08 98.2 F 81 18 98/67 97 12/21/19 21:00 84 18 129/64 97 12/21/19 20:46 98 F 89 18 129/64 97 12/21/19 20:41 80 12/21/19 20:37 80 12/21/19 20:30 80 21 110/48 97 12/21/19 20:16 98.2 F 82 22 114/52 97 12/21/19 20:06 98 F 84 20 110/48 97 12/21/19 20:00 98.4 F 20 105/46 80 L 12/21/19 19:42 90 12/21/19 19:30 85 15 94/37 96 12/21/19 19:00 86 16 115/40 99 12/21/19 18:30 98.6 F 89 18 117/60 96 12/21/19 17:55 11 L 21 111/38 99 12/21/19 17:09 98.5 F 90 20 117/60 97 12/21/19 16:13 102.6 F H 12/21/19 15:50 82 12/21/19 15:38 82 12/21/19 14:57 99.7 F H 12/21/19 14:46 103 H 22 131/62 99 Intake and Output 12/21/19 12/22/19 12/22/19 22:59 06:59 14:59 Intake Total 2380 2520 390 Output Total 120 250 100 Balance 2260 2270 290 Intake: IV 1520 1040 390 Sodium Chloride 0.9% 1, 520 1040 390 000 ml @ 130 mls/hr IV . Q7H42M [facility] Rx#:[id number] Sodium Chloride 0.9% 1, 1000 000 ml @ 999 mls/hr IV . Q1H1M ONE Rx#:[id number] Oral 240 240 Blood Product 620 1240 Rc As-1 Unit 310 [id number] Rc As-1 Unit 310 [id number] Rc As-1 Unit 310 [id number] Output: Urine 120 250 100 Other: # Voids 0 Weight 61.235 kg 63.8 kg The patient appeared well nourished and normally developed. Vital signs as documented. Head exam is unremarkable. No scleral icterus or corneal arcus noted. Neck is without jugular venous distension, thyromegaly, or carotid bruits. Carotid upstrokes are brisk bilaterally. Lungs diminished breath sounds bilaterally along with some crackles in lung bases right more than left. Cardiac exam reveals the PMI to be normally sized and situated. Rhythm is regular. First and second heart sounds normal. No murmurs, rubs or gallops. Abdominal exam reveals normal bowel sounds, no masses, no organomegaly and no aortic enlargement. Extremities are nonedematous and both femoral and pedal puls es are normal.Examination of the skin revealed no evidence of significant rashes, suspicious appearing nevi or other concerning lesions. Neurologically the patient is awake and alert and there is no focal neurological deficit. He does have underlying dementia. Poor memory. Some impairment in the cognition. He has poor insight on his condition. Results - Laboratory Findings CBC and BMP: 12/22/19 05:47 12/22/19 05:47 ABG WBC 6.1 k/uL (3.8-10.6) 12/22/19 05:47 RBC 3.06 m/uL (4.30-5.90) L 12/22/19 05:47 Hgb 8.6 gm/dL (13.0-17.5) L D 12/22/19 05:47 Hct 27.9 % (39.0-53.0) L 12/22/19 05:47 MCV 91.3 fL (80.0-100.0) 12/22/19 05:47 MCH 28.1 pg (25.0-35.0) 12/22/19 05:47 MCHC 30.8 g/dL (31.0-37.0) L 12/22/19 05:47 RDW 16.6 % (11.5-15.5) H 12/22/19 05:47 Plt Count 172 k/uL (150-450) 12/22/19 05:47 Neutrophils % 76 % 12/22/19 05:47 Lymphocytes % 16 % 12/22/19 05:47 Monocytes % 5 % 12/22/19 05:47 Eosinophils % 1 % 12/22/19 05:47 Basophils % 0 % 12/22/19 05:47 Neutrophils # 4.6 k/uL (1.3-7.7) 12/22/19 05:47 Lymphocytes # 1.0 k/uL (1.0-4.8) 12/22/19 05:47 Monocytes # 0.3 k/uL (0-1.0) 12/22/19 05:47 Eosinophils # 0.1 k/uL (0-0.7) 12/22/19 05:47 Basophils # 0.0 k/uL (0-0.2) 12/22/19 05:47 Hypochromasia Marked 12/22/19 05:47 Poikilocytosis Marked 12/22/19 05:47 Anisocytosis Slight 12/22/19 05:47 PT 21.6 sec (9.0-12.0) H 12/22/19 06:35 INR 2.2 (<1.2) H 12/22/19 06:35 APTT 30.2 sec (22.0-30.0) H 12/21/19 14:15 Sodium 137 mmol/L (137-145) 12/22/19 05:47 Potassium 4.1 mmol/L (3.5-5.1) 12/22/19 05:47 Chloride 113 mmol/L (98-107) H 12/22/19 05:47 Carbon Dioxide 22 mmol/L (22-30) 12/22/19 05:47 Anion Gap 2 mmol/L 12/22/19 05:47 BUN 18 mg/dL (9-20) 12/22/19 05:47 Creatinine 0.75 mg/dL (0.66-1.25) 12/22/19 05:47 Est GFR (CKD-EPI)AfAm >90 (>60 ml/min/1.73 sqM) 12/22/19 05:47 Est GFR (CKD-EPI)NonAf 89 (>60 ml/min/1.73 sqM) 12/22/19 05:47 Glucose 90 mg/dL (74-99) 12/22/19 05:47 POC Glucose (mg/dL) 105 mg/dL (75-99) H 12/21/19 18:09 POC Glu Senior Web Developer ID Clarissa Sharma 12/21/19 18:09 Lactic Ac Sepsis Rflx Y 12/21/19 23:14 Plasma Lactic Acid Marcellus 1.4 mmol/L (0.7-2.0) 12/22/19 02:49 Calcium 7.3 mg/dL (8.4-10.2) L 12/22/19 05:47 Total Bilirubin 0.9 mg/dL (0.2-1.3) 12/21/19 14:15 AST 25 U/L (17-59) 12/21/19 14:15 ALT 17 U/L (4-49) 12/21/19 14:15 Alkaline Phosphatase 72 U/L (38-126) 12/21/19 14:15 Troponin I <0.012 ng/mL (0.000-0.034) 12/21/19 14:15 NT-Pro-B Natriuret Pep 180 pg/mL 12/21/19 14:15 Total Protein 5.9 g/dL (6.3-8.2) L 12/21/19 14:15 Albumin 3.4 g/dL (3.5-5.0) L 12/21/19 14:15 Urine Color Yellow 12/21/19 22:10 Urine Appearance Clear (Clear) 12/21/19 22:10 Urine pH 5.0 (5.0-8.0) 12/21/19 22:10 Ur Specific [place] 1.020 (1.001-1.035) 12/21/19 22:10 Urine Protein Negative (Negative) 12/21/19 22:10 Urine Glucose (UA) Negative (Negative) 12/21/19 22:10 Urine Ketones Negative (Negative) 12/21/19 22:10 Urine Blood Trace (Negative) H 12/21/19 22:10 Urine Nitrite Negative (Negative) 12/21/19 22:10 Urine Bilirubin Negative (Negative) 12/21/19 22:10 Urine Urobilinogen <2.0 mg/dL (<2.0) 12/21/19 22:10 Ur Leukocyte Esterase Negative (Negative) 12/21/19 22:10 Urine RBC 1 /hpf (0-5) 12/21/19 22:10 Urine WBC 1 /hpf (0-5) 12/21/19 22:10 Ur Squamous Epith Cells <1 /hpf (0-4) 12/21/19 22:10 Urine Mucus Rare /hpf (None) H 12/21/19 22:10 Stool Occult Blood Positive (Negative) 12/21/19 16:23 Influenza Type A RNA Not Detected (Not Detectd) 12/21/19 Unknown Influenza Type B (PCR) Not Detected (Not Detectd) 12/21/19 Unknown RSV (PCR) Negative (Negative) 12/21/19 Unknown PT/INR, D-dimer PT 21.6 sec (9.0-12.0) H 12/22/19 06:35 INR 2.2 (<1.2) H 12/22/19 06:35 Abnormal lab findings: Abnormal Labs 12/21/19 12/21/19 12/21/19 14:15 14:15 14:15 RBC 2.13 L Hgb 6.2 L* D Hct 20.2 L MCHC 30.4 L RDW 16.0 H Lymphocytes # 0.4 L PT 28.6 H INR 2.9 H APTT 30.2 H Chloride 110 H Carbon Dioxide 21 L POC Glucose (mg/dL) Plasma Lactic Acid Macrellus Calcium Total Protein 5.9 L Albumin 3.4 L Urine Blood Urine Mucus Crossmatch 12/21/19 12/21/19 12/21/19 14:15 17:04 18:09 RBC Hgb Hct MCHC RDW Lymphocytes # PT INR APTT Chloride Carbon Dioxide POC Glucose (mg/dL) 105 H Plasma Lactic Acid Marcellus 4.7 H* Calcium Total Protein Albumin Urine Blood Urine Mucus Crossmatch See Detail 12/21/19 12/21/19 12/21/19 18:41 22:10 22:48 RBC 2.07 L Hgb 6.0 L* Hct 19.5 L* MCHC 30.6 L RDW 16.6 H Lymphocytes # PT INR APTT Chloride Carbon Dioxide POC Glucose (mg/dL) Plasma Lactic Acid Marcellus 2.8 H* Calcium Total Protein Albumin Urine Blood Trace H Urine Mucus Rare H Crossmatch 12/21/19 12/22/19 12/22/19 22:48 05:47 05:47 RBC 3.06 L Hgb 8.6 L D Hct 27.9 L MCHC 30.8 L RDW 16.6 H Lymphocytes # PT INR APTT Chloride 113 H Carbon Dioxide POC Glucose (mg/dL) Plasma Lactic Acid Marcellus 3.1 H* Calcium 7.3 L Total Protein Albumin Urine Blood Urine Mucus Crossmatch 12/22/19 06:35 RBC Hgb Hct MCHC RDW Lymphocytes # PT 21.6 H INR 2.2 H APTT Chloride Carbon Dioxide POC Glucose (mg/dL) Plasma Lactic Acid Marcellus Calcium Total Protein Albumin Urine Blood Urine Mucus Crossmatch - Diagnostic Findings Chest x-ray: image reviewed Assessment and Plan Plan: 1 acute right lower lobe pneumonia, consider bacterial. Influenza screen was negative. Low risk for covid-19 2 acute febrile illness. The patient only had a 1 spike of temperature and currently is afebrile 3 subacute blood loss anemia, consider low-grade GI bleed. The patient has positive occult blood. GI has been consulted. Coumadin as and placed on hold. INR is at 2.2. Received a total of 3 units of packed RBC. GI is on the case. Currently on Protonix. Consider an upper GI source of bleeding. 4 long-term articulation with warfarin 5 peripheral vascular disease with previous vascular intervention and possible aortobifem bypass graft 6 COPD with some limited exacerbation secondary right lower lobe pneumonia 7 impaired cognition and memory, consider underlying dementia 8 mild lactic acidosis, improved lactic acid level is down to 1.4 Plan The patient has received a total of 3 units of packed RBC and 3 L of fluid Cut down the IV maintenance down to 75 mL an hour Continue Rocephin and Zithromax Sputum Gram stain and culture Blood culture Obtain a repeat chest x-ray tomorrow GI consultation Hold warfarin Keep the patient up with isolation We'll continue to follow.
[2019-12-22] MEDS: AZITHROMYCIN 500 MG TAB PO SCH (16:21)
[2019-12-22 18:08] LABS: Anisocytosis Slight; HCT 28.8 % (39.0-53.0); HGB 8.9 gm/dL (13.0-17.5); Hypochromasia Marked; MCH 28.3 pg (25.0-35.0); MCHC 30.8 g/dL (31.0-37.0); MCV 91.9 fL (80.0-100.0); Mean Platelet Volume 7.8; Platelet Count 178 k/uL (150-450); Poikilocytosis Marked; RBC 3.14 m/uL (4.30-5.90); RDW 16.6 % (11.5-15.5); WBC 7.2 k/uL (3.8-10.6)
--- NOTE | 2019-12-22 20:48 | PN ---
PROGRESS NOTE DATE OF SERVICE: 12/22/2019 This 74-year-old gentleman was admitted with COPD acute exacerbation of the right lower pneumonia also had significant pleural effusion on the on the right side. The patient underwent thoracocentesis. The patient has significant shortness of breath. The patient also confused, change in mental status. The patient started on broad- spectrum antibiotics. The patient also had some The patient's hemoglobin is found to be 6.6 on admission but currently improved 8.6 after transfusion. Plasma lactic acid elevated 3.1. The patient being closely monitored at this time. The chest x- ray reviewed by me showed possible right lower lobe pneumonia. Dr. Ga following the patient closely. PAST MEDICAL HISTORY: Reviewed. REVIEW OF SYSTEMS: Cardio system: No angina. RESPIRATORY: As mentioned earlier. : No dysuria or retention. CENTRAL NERVOUS SYSTEM: No numbness, weakness. CURRENT MEDICATIONS: Reviewed and include: 1. Tylenol p.r.n. 2. [place] 5 mg q.6h p.r.n. 3. DuoNeb q.i.d. and p.r.n. 4. Xanax 0.5 t.i.d. 5. Zithromax 500 daily. 6. Rocephin 1 g daily. 7. Folic acid. 8. Dilaudid. 9. Multivitamins. 10.Habitrol 14. 11.Protonix. PHYSICAL EXAM: Patient is alert, oriented x2. Pulse 76, blood pressure 129/50, respiration 24, temperature 98.0, pulse ox 97% on 2 L. HEENT: Conjunctivae normal. NECK: No JVD. CARDIOVASCULAR: S1, S2 muffled. RESPIRATIONS: Breath sounds diminished in the bases. Scattered rhonchi and crackles. Expiratory wheezing. ABDOMEN: Soft, nontender. Legs are no edema. No swelling. CENTRAL NERVOUS SYSTEM: No focal deficits. LABS: WBC 6.9, hemoglobin is 8.6. INR is 2.2. Lactic acid noted. Influenza negative. RSV is also negative. ASSESSMENT: 1. a.Chronic obstructive pulmonary disease acute exacerbation with acute right lower lobe pneumonia, possibly gram-negative sepsis present on admission. b.Change in mental status, secondary to acute metabolic encephalopathy multifactorial. c.Anemia possibly acute on chronic gastrointestinal blood loss for further evaluation, status post blood transfusion. d.Elevated plasma lactic acid, possibly secondary to sepsis. e. Long-term anticoagulation with Coumadin. 2. Peripheral vascular disease. 3. Continued ongoing nicotine dependence. 4. History of ETOH. 5. History of chronic obstructive pulmonary disease. 6. History of MTHFR. 7. History of degenerative joint disease. 8. Mild protein calorie malnutrition. 9. Elevated lactic acid. 10.FULL CODE. RECOMMENDATIONS AND DISCUSSION: In this 70-year-old gentleman who presented with multiple complex medical issues, we will monitor the patient closely, continue the current medications, management and symptomatic treatment. Otherwise at this time, we will continue the antibiotics, bronchodilators, cultures per Dr. Ga. Continue current medications, management and symptomatic treatment. Cultures are recommended. Otherwise, we will monitor the hemoglobin closely. Exact etiology of the blood loss anemia is unknown at this time. Closely monitor. Once again, the prognosis guarded. Closely follow with Dr. Ga. NUZHAT / FRANNIEN: [id number] / MTDD
[2019-12-23] MEDS: SODIUM CHLORIDE 0.9% 1,000 ML IV SCH ×2 (05:15→20:36)
[2019-12-23 05:17] LABS: Anisocytosis Slight; Basophils % (A) 0 %; Eosinophils # (A) 0.2 k/uL (0-0.7); Eosinophils % (A) 3 %; HCT 27.5 % (39.0-53.0); HGB 8.5 gm/dL (13.0-17.5); Hypochromasia Marked; Lymphocytes # (A) 0.7 k/uL (1.0-4.8); Lymphocytes % (A) 13 %; MCH 27.9 pg (25.0-35.0); MCHC 30.8 g/dL (31.0-37.0); MCV 90.7 fL (80.0-100.0); Monocytes # (A) 0.4 k/uL (0-1.0); Monocytes % (A) 7 %; Neutrophils # (A) 4.1 k/uL (1.3-7.7); Neutrophils % (A) 74 %; Platelet Count 171 k/uL (150-450); Poikilocytosis Marked; RBC 3.03 m/uL (4.30-5.90); RDW 16.3 % (11.5-15.5); WBC 5.5 k/uL (3.8-10.6)
[2019-12-23 05:26] LABS: Chloride 115 mmol/L (98-107)
[2019-12-23 05:28] LABS: African American GFR (CKD) >90 (>60 ml/min/1.73 sqM); Anion Gap 3 mmol/L; Blood Urea Nitrogen 14 mg/dL (9-20); Calcium 7.5 mg/dL (8.4-10.2); Carbon Dioxide 19 mmol/L (22-30); Glucose 89 mg/dL (74-99); Non-African American GFR(CKD) 89 (>60 ml/min/1.73 sqM); Potassium 3.9 mmol/L (3.5-5.1); Sodium 137 mmol/L (137-145)
--- NOTE | 2019-12-23 07:39 | P.PN ---
Subjective Progress Note Date: 12/23/19 This is a very poor historian. This 74-year-old male patient is unable to volunteer information. He is not aware of his condition. The pelvic to contact his about any further details about his condition. Upon further questioning, he reports to have some difficulties in breathing and cough which was nonproductive. He was brought into the hospital because of increased shortness of breath. Denied having any chest pain. No fever or chills. He has been on long-term medical condition with Coumadin as the patient has had some vascular intervention which seems to be an aortobifemoral bypass surgery as the patient was felt to have grafts in his femoral arteries bilaterally. He was also found to have some anemia. Hemoglobin at time of admission was 6.7 and dropped down to 6.0. He had alcohol stool positive for blood. He was anticoagulated with warfarin with a therapeutic PT/INR. In the ED, he had a fever. He was suspected of a right lower lobe pneumonia. Coronavirus was not a major concern as the patient doesn't have the typical history ordered 7 history or exposure. I put him and up at isolation. I admitted him to the intensive care unit as the patient had a right lower lobe pneumonia, GI bleed and some mild lactic acidosis. He was covered with accommodation Rocephin and Zithromax. the chest x-ray from today clearly shows a right lower lobe infiltration which has evolved compared to yesterday. He has received a total of 3 units of packed RBCs since yesterday and hemoglobin is above 8. He has also received a total of 3 L of IV fluids and his current maintenance at 130 mL an hour. Cultures of been sent. No significant respiratory distress on today's evaluation. He has a congested cough unable to bring up much sputum. He only had a 1 spike of fever and currently is afebrile. White cell count is not elevated. His Coumadin is currently on hold and INR today is at 2.2. Lactic acid level is down to 1.4. Influenza screen was negative. RSV screen was negative. On today's evaluation of 12/23/2019 the patient's condition is stable. The patient is being treated for right lower lobe pneumonia. The chest x-ray from today shows a stable consolidation of the right lower lobe and the patient remains on accommodation of Rocephin and Zithromax. He remains afebrile. No leukocytosis. Some limited cough and congestion is still present. He remains on bronchodilators. Sputum Gram stain is still pending and is negative thus far. Blood cultures is also negative. The patient is receiving DuoNeb neb last units [id number]. The patient is also being monitored for GI bleed. Note that he hasn't had any further episodes of bleeding. The hemoglobin today is stable at 8.5. The patient is not having any signs of bleeding. He has a diminished appetite and his oral intake diminished. He remains in normal saline drip of 75 mL an hour. He is on nicotine patch. No hypotension. Lactic acid level has improved. Objective - Vital Signs Vital signs: Vital Signs Temp 98.2 F 12/23/19 04:00 Pulse 58 L 12/23/19 07:00 Resp 20 12/23/19 07:00 BP 130/52 12/23/19 07:00 Pulse Ox 99 12/23/19 07:00 Intake & Output 12/22/19 12/23/19 12/23/19 18:59 06:59 18:59 Intake Total 1120 900 75 Output Total 500 300 Balance 620 600 75 Weight 64.4 kg Intake: IV 1120 900 75 Sodium Chloride 0.9% 1, 1120 900 75 000 ml @ 75 mls/hr IV . [id number] [facility] Rx#:[id number] Output: Urine 500 300 Other: Voiding Method Urinal # Voids 0 - Exam The patient appeared well nourished and normally developed. Vital signs as documented. Head exam is unremarkable. No scleral icterus or corneal arcus noted. Neck is without jugular venous distension, thyromegaly, or carotid bruits. Carotid upstrokes are brisk bilaterally. Lungs diminished breath sounds bilaterally along with some crackles in lung bases right more than left. Cardiac exam reveals the PMI to be normally sized and situated. Rhythm is regular. First and second heart sounds normal. No murmurs, rubs or gallops. Abdominal exam reveals normal bowel sounds, no masses, no organomegaly and no aortic enlargement. Extremities are nonedematous and both femoral and pedal pulses are normal.Examination of the skin revealed no evidence of significant rashes, suspicious appearing nevi or other concerning lesions. Neurologically the patient is awake and alert and there is no focal neurological deficit. He does have underlying dementia. Poor memory. Some impairment in the cognition. He has poor insight on his condition. - Labs CBC & Chem 7: 12/23/19 05:04 12/23/19 05:04 Labs: Abnormal Lab Results - Last 24 Hours (Table) 12/22/19 12/23/19 12/23/19 Range/Units 17:46 05:04 05:04 RBC 3.14 L 3.03 L (4.30-5.90) m/uL Hgb 8.9 L 8.5 L (13.0-17.5) gm/dL Hct 28.8 L 27.5 L (39.0-53.0) % MCHC 30.8 L 30.8 L (31.0-37.0) g/dL RDW 16.6 H 16.3 H (11.5-15.5) % Lymphocytes # 0.7 L (1.0-4.8) k/uL Chloride 115 H (98-107) mmol/L Carbon Dioxide 19 L (22-30) mmol/L Calcium 7.5 L (8.4-10.2) mg/dL Microbiology - Last 24 Hours (Table) 12/21/19 23:48 Gram Stain - Preliminary Sputum Sputum Culture - Preliminary 12/21/19 17:04 Blood Culture - Preliminary Blood No Growth after 24 hours Assessment and Plan Plan: 1 acute right lower lobe pneumonia, consider bacterial. Influenza screen was negative. Low risk for covid-19, and the chest x-ray shows a stable right lower lobe consolidation and there are no signs of overt or impending respiratory failure for now. His condition is stable and the patient is covered with a combination of Rocephin and Zithromax. Cultures are negative. 2 acute febrile illness. The patient only had a 1 spike of temperature and currently is afebrile 3 subacute blood loss anemia, consider low-grade GI bleed. The patient has positive occult blood. GI has been consulted. Coumadin as and placed on hold. INR is at 2.2. Received a total of 3 units of packed RBC. GI is on the case. Currently on Protonix. Consider an upper GI source of bleeding. The patient would have a repeat PT/INR today. Hemoglobin stable at 8.5. 4 long-term articulation with warfarin, currently on hold 5 peripheral vascular disease with previous vascular intervention and possible aortobifem bypass graft 6 COPD with some limited exacerbation secondary right lower lobe pneumonia 7 impaired cognition and memory, consider underlying dementia 8 mild lactic acidosis, improved lactic acid level is down to 1.4 Plan Cut down the IV maintenance down to 75 mL an hour Continue Rocephin and Zithromax Sputum Gram stain and culture Blood culture Repeat chest x-ray in the morning GI consultation, and the patient will be reevaluated again by GI and will get a clearance letter anticoagulation can be restarted versus is being planned to undergo evaluation with an EGD or colonoscopy. Based on that the final recommendation made whether anticoagulation can be restarted. Awaiting final recommendations from GI. We will keep the patient's Coumadin on hold. Keep the warfarin on hold and the repeat PT/INR in the morning Keep the patient up with dropet isolation We'll continue to follow. Condition is stable and the patient can be transferred to a medical floor with remote telemetry today.
--- NOTE | 2019-12-23 07:41 | XR ---
EXAMINATION TYPE: XR chest 1V portable DATE OF EXAM: 12/23/2019 COMPARISON: 12/22/2019 HISTORY: Shortness of breath TECHNIQUE: Single frontal view of the chest is obtained. FINDINGS: Stable right basilar consolidation and shifting of the right minor fissure inferiorly. Obs curation of the right costophrenic angle. Pulmonary hyperinflation of underlying COPD. Cardiomediasti nal silhouette is enlarged. Strand-like probable atelectasis at the left lung base. Diffuse osseous d emineralization. IMPRESSION: 1. Stable basilar consolidation may been the basis of a pneumonia. Mild venous congestion not exclude d.
[2019-12-23] MEDS: IPRATROPIUM-ALBUTEROL 3 ML NEB INHALATION SCH ×4 (07:49→19:56)
[2019-12-23] MEDS: NICOTINE 14MG/24HR PATCH TRANSDERM SCH (07:53)
[2019-12-23] MEDS: PANTOPRAZOLE 40 MG/10 ML VIAL IVP SCH (08:04)
[2019-12-23 08:16] LABS: Prothrombin Time 19.8 sec (9.0-12.0)
--- NOTE | 2019-12-23 10:41 | PN ---
PROGRESS NOTE DATE OF SERVICE: 12/23/2019 REQUESTING PHYSICIAN: Dr. Fabian Whatley The patient is a 74 -year-old pleasant white male who was admitted to hospital with exacerbation of COPD and pneumonia. He is on broad-spectrum antibiotics. He is feeling much better. He was also noted to have a hemoglobin of 6.5 g/dL requiring 3 units of blood transfusion. Last hemoglobin is 8.5 g/dL. He is doing better today. Shortness of breath has improved. The cough is significantly decreasing. No fever, chills, or night sweats. Denies any abdominal pain. No nausea, vomiting. No rectal bleeding. PHYSICAL EXAMINATION: Blood pressure is 130/52, pulse 78, temperature 98.9. HEENT examination unremarkable. Conjunctivae pink. Sclerae anicteric. Oral cavity no lesions. NECK: No JVD or lymph node enlargement. CHEST: Clear to auscultation. HEART regular rate and rhythm. ABDOMEN: Soft. Bowel sounds are positive. No organomegaly. EXTREMITIES no pedal edema. SKIN no rashes. NEURO: He is alert and oriented x3. No focal deficits. LABS: Done today WBC 5.5, hemoglobin 8.5, platelets 171. INR is 2. BUN and creatinine 14 and 0.75 respectively. IMPRESSION: 1. Exacerbation of chronic obstructive pulmonary disease with pneumonia on broad- spectrum antibiotics with Zithromax and doing much better. 2. Severe symptomatic anemia with Hemoccult-positive stool. Hemoglobin 6.5 requiring 3 units of blood transfusion. Currently, Coumadin is on hold and INR is 2. 3. Atrial fibrillation on Coumadin, currently on hold. RECOMMENDATION: 1. Continue with broad-spectrum antibiotics. 2. Monitor CBC daily. 3. Continue to hold the Coumadin. 4. Once his INR is less than 1.5 and his overall pulmonary status stabilizes, EGD and colonoscopy during this hospitalization. The plan was discussed with the patient and he is agreeable to it. Thank you for this consultation. MMODL / IJN: [id number] /
[2019-12-23] MEDS: PIPERACILLIN-TAZOBACTAM 3.375 GM in SODIUM CHLORIDE 0.9% 100 ML IVPB SCH (16:43)
[2019-12-23] MEDS: AZITHROMYCIN 500 MG TAB PO SCH (16:44)
[2019-12-23] MEDS: FOLIC ACID 1 MG TAB PO SCH (16:44)
[2019-12-23] MEDS: MULTIVITAMINS, THERA 1 EACH TAB PO SCH (16:44)
--- NOTE | 2019-12-23 17:44 | PN ---
PROGRESS NOTE . DATE OF SERVICE: 12/23/2019 This is 74-year-old gentleman who was admitted with COPD acute exacerbation also had pneumonia with possibly aspiration pneumonia. The patient also has anemia also. The patient had transfusion. Patient also has chronic history of anemia as well. Gastroenterology following the patient closely. The patient is keen on going home at this time. A chest x-ray showed persistent infiltrates as well. The patient also complains of cough also. The patient is on Coumadin for atrial fibrillation, which is currently on hold. EGD and colonoscopy are planned by Dr. Munson. PAST MEDICAL HISTORY: Reviewed. REVIEW OF SYSTEMS: Cardiovascular system: As mentioned earlier. RESPIRATORY: As mentioned earlier. GI: No nausea or vomiting. no dysuria. Nervous systems: No numbness or weakness. CURRENT MEDICATIONS: Reviewed and include: 1. Tylenol p.r.n. 2. [place] 5 mg q.6h. 3. DuoNeb q.i.d. and p.r.n. 4. Xanax 0.5 daily. 5. Flomax 0.4 daily. 6. Folic acid 1 mg. 7. Heparin 5000 units subcu b.i.d. 8. Dilaudid. 9. Multivitamins. 10.Habitrol 14 daily. 11.Zosyn. PHYSICAL EXAM: Patient is alert, oriented x3. The pulse is 57, blood pressure 143/76, respirations 17, temperature 98 degrees, pulse ox 94% on room air. HEENT: Conjunctivae pale. NECK: No JVD. CARDIOVASCULAR: S1, S2 muffled. RESPIRATION: Breath sounds diminished in the bases. Bilateral scattered rhonchi and crackles. ABDOMEN: Soft. Nontender. LEGS are no edema. No Swelling. Nervous system: No focal deficits. LABORATORY DATA: At this time shows WBC 5.7, hemoglobin is 8.5 and INR 2. ASSESSMENT: 1. Chronic obstructive pulmonary disease acute exacerbation with acute right lower lobe pneumonia possibly gram-negative possibly aspiration pneumonia present on admission with sepsis. 2. Change in mental status, metabolic encephalopathy secondary to sepsis and multifactorial. 3. Anemia possibly acute on chronic gastrointestinal bleed for further evaluation, status post transfusion. 4. Elevated plasma lactic acid, possibly secondary to sepsis. 5. Long-term anticoagulation with Coumadin for atrial fibrillation, currently on hold. 6. Peripheral vascular disease. 7. Continued ongoing nicotine dependence. 8. History of ETOH. 9. History of chronic obstructive pulmonary disease. 10.History MTHFR. 11.History of degenerative joint disease. 12.Mild protein calorie malnutrition, elevated lactic acid. 13.FULL CODE. RECOMMENDATIONS AND DISCUSSION: I recommend to continue current medications, management and symptomatic treatment. Monitor hemoglobin. Closely monitor PT, INR closely. Hemoglobin is currently at 8.[address] Munson has seen the patient closely and Dr. Munson is recommending EGD and possibly during this particular hospital admission. INR less than 1.5. Otherwise, I would recommend continue the bronchodilators. Change the antibiotics to Zosyn. Continue the bronchodilators. I would also recommend modified barium swallow and speech pathology to rule out possible aspiration because significant persistent lesion in the right lower lobe. Once again, the prognosis guarded. Further recommendations to follow. MMODL / IJN: [id number] /
[2019-12-23] MEDS ORDERED: HEPARIN SODIUM,PORCINE 5,000 UNIT/ML 1 ML VIAL SQ SCH (21:00)
[2019-12-24] MEDS: PIPERACILLIN-TAZOBACTAM 3.375 GM in SODIUM CHLORIDE 0.9% 100 ML IVPB SCH ×4 (01:22→23:12)
[2019-12-24 06:22] LABS: INR 1.7 (<1.2)
[2019-12-24 06:27] LABS: African American GFR (CKD) >90 (>60 ml/min/1.73 sqM); Anion Gap 3 mmol/L; Blood Urea Nitrogen 10 mg/dL (9-20); Calcium 7.8 mg/dL (8.4-10.2); Carbon Dioxide 22 mmol/L (22-30); Chloride 113 mmol/L (98-107); Glucose 87 mg/dL (74-99); Non-African American GFR(CKD) 90 (>60 ml/min/1.73 sqM); Potassium 3.8 mmol/L (3.5-5.1); Sodium 138 mmol/L (137-145)
[2019-12-24 06:37] LABS: HCT 27.7 % (39.0-53.0); HGB 8.5 gm/dL (13.0-17.5); Hypochromasia Marked; MCH 27.7 pg (25.0-35.0); MCHC 30.5 g/dL (31.0-37.0); MCV 90.6 fL (80.0-100.0); Mean Platelet Volume 8.4; Platelet Count 188 k/uL (150-450); Poikilocytosis Moderate; RBC 3.06 m/uL (4.30-5.90); RDW 15.8 % (11.5-15.5); WBC 4.8 k/uL (3.8-10.6)
[2019-12-24 07:06] LABS: Lymphocytes # (M) 0.72 k/uL (1.0-4.8); Monocytes # (M) 0.34 k/uL (0-1.0); Neutrophils # (M) 3.65 k/uL (1.3-7.7); Neutrophils % (M) 76 %; Nucleated Red Blood Cells 0 /100 WBC (0-0); Total Cells Counted 100
[2019-12-24] MEDS: IPRATROPIUM-ALBUTEROL 3 ML NEB INHALATION SCH ×4 (07:22→19:31)
[2019-12-24] MEDS: PANTOPRAZOLE 40 MG/10 ML VIAL IVP SCH (07:36)
--- NOTE | 2019-12-24 09:16 | P.PN ---
Subjective Progress Note Date: 12/24/19 On 12/24/2019 patient seen in follow-up on general medical floor, he is awake and alert, in no acute distress room air pulse ox of 98%, hemodynamically stable, no fever or chills, still has a congested cough, and at times she is bringing up some greenish colored sputum, no hemoptysis, no complaints of chest pain, he is on accommodation Zithromax and Rocephin, sputum culture is pending, preliminary Gram stain showed no organisms. Yesterday's chest x-ray shows stable basilar consolidation with mild venous congestion. Today's lab work has been reviewed, white blood cell count was 4.8, hemoglobin is 8.5, INR is 1.7, serum sodium is 138, potassium 3.8, chloride is 113, renal profile is unremarkable, there has been no evidence of hematemesis, hematochezia, or melena, Coumadin remains on hold, GI service is following and is planning EGD and colonoscopy when the INR is below 1.5 and patient is stable from pulmonary perspective. Objective - Vital Signs Vital signs: Vital Signs Temp 98.4 F 12/24/19 07:00 Pulse 70 12/24/19 07:34 Resp 18 12/24/19 07:00 BP 143/62 12/24/19 07:00 Pulse Ox 98 12/24/19 07:00 Intake & Output 12/23/19 12/24/19 12/24/19 18:59 06:59 18:59 Intake Total 75 550 Output Total 315 1250 Balance -240 -700 Weight 67.812 kg Intake: IV 75 Sodium Chloride 0.9% 1, 75 000 ml @ 75 mls/hr IV . [id number] [facility] Rx#:[id number] Intake, IV Titration 550 Amount Piperacillin-Tazobactam 3 100 .375 gm In Sodium Chloride 0.9% 100 ml @ 25 mls/hr IVPB Q8HR [facility] Rx# :[id number] Sodium Chloride 0.9% 1, 450 000 ml @ 75 mls/hr IV . [id number] [facility] Rx#:[id number] Output: Urine 315 1250 Other: Voiding Method Urinal Urinal # Voids 0 200 # Bowel Movements 1 1 - Exam GENERAL EXAM: Alert, very pleasant, 74-year-old white male, on room air with a pulse ox of 96%, comfortable in no apparent distress. HEAD: Normocephalic/atraumatic. EYES: Normal reaction of pupils, equal size. Conjunctiva pink, sclera white. NOSE: Clear with pink turbinates. THROAT: No erythema or exudates. NECK: No masses, no JVD, no thyroid enlargement, no adenopathy. CHEST: No chest wall deformity. Symmetrical expansion. LUNGS: Equal air entry with basilar crackles, but no wheeze, rhonchi or dullness. CVS: Regular rate and rhythm, normal S1 and S2, no gallops, no murmurs, no rubs ABDOMEN: Soft, nontender. No hepatosplenomegaly, normal bowel sounds, no guarding or rigidity. EXTREMITIES: No clubbing, no edema, no cyanosis, 2+ pulses and upper and lower extremities. MUSCULOSKELETAL: Muscle strength and tone normal. SPINE: No scoliosis or deformity SKIN: No rashes CENTRAL NERVOUS SYSTEM: Alert and oriented -3. No focal deficits, tone is normal in all 4 extremities. PSYCHIATRIC: Alert and oriented -3. Appropriate affect. Intact judgment and insight. - Labs CBC & Chem 7: 12/24/19 05:26 12/24/19 05:26 Labs: Abnormal Lab Results - Last 24 Hours (Table) 12/24/19 12/24/19 12/24/19 Range/Units 05:26 05:26 05:26 RBC 3.06 L (4.30-5.90) m/uL Hgb 8.5 L (13.0-17.5) gm/dL Hct 27.7 L (39.0-53.0) % MCHC 30.5 L (31.0-37.0) g/dL RDW 15.8 H (11.5-15.5) % Lymphocytes # (Manual) 0.72 L (1.0-4.8) k/uL PT 17.0 H (9.0-12.0) sec INR 1.7 H (<1.2) Chloride 113 H (98-107) mmol/L Calcium 7.8 L (8.4-10.2) mg/dL Microbiology - Last 24 Hours (Table) 12/21/19 17:04 Blood Culture - Preliminary Blood No Growth after 48 hours Assessment and Plan Plan: Assessment: 1 acute right lower lobe pneumonia, consider bacterial. Influenza screen was negative. Low risk for covid-19, and the chest x-ray shows a stable right lower lobe consolidation and there are no signs of overt or impending respiratory failure for now. His condition is stable and the patient is covered with a combination of Rocephin and Zithromax. Cultures are negative. 2 acute febrile illness. The patient only had a 1 spike of temperature and currently is afebrile 3 subacute blood loss anemia, consider low-grade GI bleed. The patient has positive occult blood. GI has been consulted. Coumadin as and placed on hold. INR is at 2.2. Received a total of 3 units of packed RBC. GI is on the case. Currently on Protonix. Consider an upper GI source of bleeding. The patient would have a repeat PT/INR today. Hemoglobin stable at 8.5. 4 long-term articulation with warfarin, currently on hold 5 peripheral vascular disease with previous vascular intervention and possible aortobifem bypass graft 6 COPD with some limited exacerbation secondary right lower lobe pneumonia 7 impaired cognition and memory, consider underlying dementia 8 mild lactic acidosis, improved lactic acid level is down to 1.4 Plan: We'll obtain a follow-up chest x-ray, patient has a mild congestion but no significant dyspnea or wheezing, increase activity as tolerated, patient has been treated with a combination of Zithromax and Rocephin, yesterday's chest x- ray still showed right basilar pneumonia, patient is requesting to go home today and he states he may sign out AGAINST MEDICAL ADVICE if he is not allowed to go home. Increase activity as tolerated, sputum culture has shown no growth, no leukocytosis, no fever or chills, no hemoptysis or chest pain, and altered mentation, we'll review the chest x-ray, INR is 1.7, there has been no evidence of bleeding, hemodynamically stable, he is on room air. We'll continue to follow I performed a history & physical examination of the patient and discussed their management with my nurse practitioner, Jhoana Sharma. I reviewed the nurse practitioner's note and agree with the documented findings and plan of care. Lung sounds are positive for basilar crackles. The findings and the impression was discussed with the patient. I attest to the documentation by the nurse practitioner. Time with Patient: Less than 30
--- NOTE | 2019-12-24 09:57 | XR ---
EXAMINATION TYPE: XR chest 1V portable DATE OF EXAM: 12/24/2019 COMPARISON: 12/23/2019 HISTORY: Fever TECHNIQUE: Single frontal view of the chest is obtained. FINDINGS: Previously seen small right pleural effusion and right basilar airspace disease. Small js unt of fluid in the right minor fissure. Diffuse interstitial prominence may relate to cardiogenic or noncardiogenic fluid overload. Cardiomediastinal silhouette is mildly enlarged. Diffuse osseous michelle neralization is seen. No pneumothorax identified. IMPRESSION: Increasing right basilar airspace disease and pleural effusion. Consider pneumonia and p arapneumonic effusion in this patient with fever. There is mild background interstitial pulmonary grisel ma that may relate to cardiogenic or noncardiogenic fluid overload additionally.
--- NOTE | 2019-12-24 14:53 | CDI ---
Documentation Clarification Form Date: 12/24/2019 02:48:05 PM From: Lora Castillo RN, CCDS Admit Date: 12/21/2019 04:44:00 PM Patient Name: Guanaco Hernandez Visit Number: [id number] ATTENTION: The Clinical Documentation Specialists (CDI) and [facility] Coding Staff appreciate your assistance in clarifying documentation. Please respond to the clarification below the line at the bottom and electronically sign. The CDI & [facility] Coding staff will review the response and follow-up if needed. Please note: Queries are made part of the Legal Health Record. If you have any questions, please contact the author of this message via ITS. Dr. Chavez Garcia Atrial Fibrillation is documented in the 12/22 Progress note and requires further specificity. History/Risk Factors: Atrial Fib, MTHFR, COPD, ETOH, Nicotine Dependence Clinical Indicators: 12/22 Att: "Long-term anticoagulation with Coumadin for Atrial fibrillation, currently on hold." 12/21/19 EKG/telemetry: NSR Treatment: No rate control or cardiac meds Currently anticoagulation is oh hold In your professional opinion, can you please clarify the type of Atrial Fibrillation, if known? Chronic/Permanent Paroxysmal Persistent Other, please specify Unable to determine (Last Revision: January 2018) Paroxysmal MTDD
[2019-12-24] MEDS: SODIUM CHLORIDE 0.9% 1,000 ML IV SCH ×2 (15:31→20:38)
[2019-12-24] MEDS: NICOTINE 14MG/24HR PATCH TRANSDERM SCH (15:31)
[2019-12-24] MEDS ORDERED: PEG 3350-NA SULF,BICARB,CL/KCL 4,000 ML BOTTLE PO ONE (16:00)
[2019-12-24] MEDS: MULTIVITAMINS, THERA 1 EACH TAB PO SCH (16:53)
[2019-12-24] MEDS: FOLIC ACID 1 MG TAB PO SCH (16:53)
--- NOTE | 2019-12-24 17:07 | PN ---
PROGRESS NOTE DATE OF DICTATION: This patient is a 74-year-old pleasant white male, admitted to the hospital with significant anemia with hemoglobin of 6.5, requiring 3 units of blood transfusion. He also had severe pneumonia and hence he was in the ICU on broad- spectrum antibiotics. He was just transferred from the ICU last night and is feeling much better. He has history of DVT, on Coumadin, which is currently on hold. INR today is 1.7. He denies any GI symptoms. He never had an EGD or colonoscopy in the past. PHYSICAL EXAMINATION: He appears comfortable. No apparent distress. Vital signs are stable. Blood pressure is 176/71, pulse rate 94, temperature 97.5. HEENT examination unremarkable. Conjunctivae pink. Sclerae anicteric. Oral cavity no lesions. NECK: No JVD or lymph node enlargement. CHEST: Clear to auscultation. HEART: Regular rate and rhythm. ABDOMEN: Soft. Bowel sounds are positive. No organomegaly. EXTREMITIES: No pedal edema. NEURO: Alert and oriented x3. LABS: Labs from today show hemoglobin is 8.5, WBC 4.8, platelets normal. INR is 1.7. IMPRESSION: 1. Severe symptomatic anemia with a hemoglobin of 6.5, requiring 3 units of blood transfusion. Last hemoglobin was 8.5 g/dL. Patient doing well. No episodes of bleeding. 2. History of deep venous thrombosis, on Coumadin, which is currently on hold. INR is 1.7. 3. Pneumonia and exacerbation of chronic obstructive pulmonary disease. Remains on antibiotics. Symptoms are gradually improving. RECOMMENDATIONS: 1. Continue to hold Coumadin. 2. Proceed with EGD and colonoscopy tomorrow. I discussed with him risks, benefits and complications of the procedure, and he is agreeable to it. Thank you for this consultation. MMODL / IJN: [id number] /
[2019-12-24] MEDS: AZITHROMYCIN 500 MG TAB PO SCH (17:25)
--- NOTE | 2019-12-24 17:34 | PN ---
PROGRESS NOTE DATE OF SERVICE: 12/24/2019 This 74-year-old gentleman who was admitted with COPD, acute exacerbation, had acute right lower lobe pneumonia, possibly Gram-negative, and aspiration pneumonia. He also has change in mental status. The patient had anemia, hemoglobin of 6. Patient was transfused. Dr. Munson recommended possible EGD and colonoscopy while the patient is in the hospital. Coumadin is held and INR is 1.7. Dr. Munson will be able to do the procedure when the INR is less than 1.5. No chest pain. No palpitations. Past medical history reviewed. REVIEW OF SYSTEMS: CARDIOVASCULAR SYSTEM: As mentioned earlier. RESPIRATORY SYSTEM: As mentioned earlier. GI: As mentioned earlier. : No dysuria or retention. NERVOUS SYSTEM: No numbness, weakness. CURRENT MEDICATIONS: Reviewed. They include: 1. Tylenol p.r.n. 2. [place] 5 mg. 3. DuoNeb q.i.d. and p.r.n. 4. Xanax 0.25 t.i.d. 5. Zithromax 500 mg daily. 6. Folic acid 1 mg daily. 7. Dilaudid p.r.n. 8. Multivitamins. 9. Habitrol 14 daily. 10.Protonix 40 mg daily. 11.Zosyn 3.375 IV q.8. 12.P.r.n. medications. PHYSICAL EXAMINATION: The patient is alert and oriented x3. Pulse is 94, blood pressure 176/71, respiration 18, temperature 97.5, pulse ox 96% on room air. HEENT: Conjunctivae normal. NECK: No jugular venous distention. CARDIOVASCULAR SYSTEM: S1, S2 muffled. RESPIRATORY SYSTEM: Breath sounds diminished at the bases. A few scattered rhonchi and crackles. Expiratory wheezing. ABDOMEN: Soft, non-tender. LEGS: No edema. No swelling. NERVOUS SYSTEM: No focal deficit. LABS: WBC 4.8, hemoglobin is 8.5. INR 1.7. Lactic acid 3.1. ASSESSMENT: 1. Chronic obstructive pulmonary disease, acute exacerbation, with acute right lower lobe pneumonia, possibly aspiration, possibly Gram-negative, present on admission with sepsis. 2. Change in mental status, metabolic encephalopathy, secondary to sepsis and multifactorial. 3. Anemia, possibly acute on chronic, with gastrointestinal bleed. For further evaluation, status post transfusion. 4. Elevated plasma lactic acid, possibly secondary to sepsis, present on admission. 5. Long-term anticoagulation with Coumadin for atrial fibrillation, currently on hold. 6. Peripheral vascular disease. 7. Continued ongoing nicotine dependence. 8. History of ethanol. 9. History of chronic obstructive pulmonary disease. 10.History of MTHFR. 11.History of degenerative joint disease. 12.Mild protein-calorie malnutrition. 13.FULL CODE. RECOMMENDATIONS AND DISCUSSION: In this 74-year-old gentleman who presented with multiple complex medical issues, we will monitor the patient closely. I would recommend continuing with IV antibiotics and bronchodilators, rest of the medications. As mentioned earlier, patient has significant GI bleeding, and Dr. Munson would like to do the endoscopies during this admission. The patient is keen on going home, but I have stressed the importance of staying here and getting the evaluation done because of the multiple complex medical issues and grave prognosis of the patient. The patient understands and agrees. We will closely follow with Pulmonary. Input appreciated. Otherwise, I would also recommend possibly a modified barium swallow after the endoscopies to evaluate swallowing, also. Otherwise, overall prognosis guarded. Further recommendations to follow. MMODL / IJN: [id number] /
[2019-12-25] MEDS: IPRATROPIUM-ALBUTEROL 3 ML NEB INHALATION SCH ×2 (07:28→11:31)
[2019-12-25 07:30] LABS: Basophils % (A) 0 %; Eosinophils # (A) 0.3 k/uL (0-0.7); Eosinophils % (A) 7 %; HCT 30.3 % (39.0-53.0); HGB 9.1 gm/dL (13.0-17.5); Hypochromasia Marked; Lymphocytes # (A) 0.7 k/uL (1.0-4.8); Lymphocytes % (A) 19 %; MCH 27.6 pg (25.0-35.0); MCHC 30.2 g/dL (31.0-37.0); MCV 91.4 fL (80.0-100.0); Monocytes # (A) 0.3 k/uL (0-1.0); Monocytes % (A) 7 %; Neutrophils # (A) 2.4 k/uL (1.3-7.7); Neutrophils % (A) 64 %; Platelet Count 189 k/uL (150-450); Poikilocytosis Moderate; RBC 3.31 m/uL (4.30-5.90); RDW 15.7 % (11.5-15.5); WBC 3.8 k/uL (3.8-10.6)
[2019-12-25 07:31] VITALS: RESP 16
[2019-12-25 07:37] LABS: INR 1.6 (<1.2); Prothrombin Time 16.2 sec (9.0-12.0)
[2019-12-25 07:44] LABS: African American GFR (CKD) >90 (>60 ml/min/1.73 sqM); Anion Gap 5 mmol/L; Blood Urea Nitrogen 7 mg/dL (9-20); Calcium 8.1 mg/dL (8.4-10.2); Carbon Dioxide 24 mmol/L (22-30); Chloride 111 mmol/L (98-107); Glucose 84 mg/dL (74-99); Non-African American GFR(CKD) 88 (>60 ml/min/1.73 sqM); Potassium 3.7 mmol/L (3.5-5.1); Sodium 140 mmol/L (137-145)
[2019-12-25] MEDS: FOLIC ACID 1 MG TAB PO SCH (07:45)
[2019-12-25] MEDS: MULTIVITAMINS, THERA 1 EACH TAB PO SCH (07:45)
[2019-12-25] MEDS: PIPERACILLIN-TAZOBACTAM 3.375 GM in SODIUM CHLORIDE 0.9% 100 ML IVPB SCH (07:47)
[2019-12-25] MEDS: PANTOPRAZOLE 40 MG/10 ML VIAL IVP SCH (07:48)
[2019-12-25] MEDS: NICOTINE 14MG/24HR PATCH TRANSDERM SCH (07:51)
[2019-12-25] MEDS: SODIUM CHLORIDE 0.9% 1,000 ML IV SCH (08:51)
[2019-12-25 08:59] VITALS: BP 172/72; TEMP 97.9
--- NOTE | 2019-12-25 09:18 | P.PN ---
Subjective Progress Note Date: 12/25/19 On 12/24/2019 patient seen in follow-up on general medical floor, he is awake and alert, in no acute distress room air pulse ox of 98%, hemodynamically stable, no fever or chills, still has a congested cough, and at times she is bringing up some greenish colored sputum, no hemoptysis, no complaints of chest pain, he is on accommodation Zithromax and Rocephin, sputum culture is pending, preliminary Gram stain showed no organisms. Yesterday's chest x-ray shows stable basilar consolidation with mild venous congestion. Today's lab work has been reviewed, white blood cell count was 4.8, hemoglobin is 8.5, INR is 1.7, serum sodium is 138, potassium 3.8, chloride is 113, renal profile is unremarkable, there has been no evidence of hematemesis, hematochezia, or melena, Coumadin remains on hold, GI service is following and is planning EGD and colonoscopy when the INR is below 1.5 and patient is stable from pulmonary perspective. On 12/25/2019 patient seen in follow-up on a general medical floor, he sitting up in a recliner, he is in no acute distress, does have an occasional congested nonproductive cough, his been afebrile. He is on Zithromax for antibiotic coverage, and Zosyn. Lung sounds reveal bibasilar crackles, and patient states he does have an occasional right lower chest discomfort with deep breathing and coughing but no acute distress, room air pulse ox is 97%, patient is afebrile, hemodynamically patient is stable, there has been no evidence of bleeding, today's hemoglobin is 9.1, platelet count is 189, white blood cell count is 3.8, INR is 1.6, BUN of 7 and creatinine of 0.79. EGD and colonoscopy are scheduled today with Dr. Munson at noon. Objective - Vital Signs Vital signs: Vital Signs Temp 97.9 F 12/25/19 07:00 Pulse 68 12/25/19 07:44 Resp 16 12/25/19 07:28 BP 172/72 12/25/19 07:00 Pulse Ox 97 12/25/19 07:28 Intake & Output 12/24/19 12/25/19 12/25/19 18:59 06:59 18:59 Intake Total 480 Output Total 1 Balance -1 480 Weight 66.3 kg Intake: Oral 480 Output: Urine 1 Other: Voiding Method Toilet Toilet Urinal # Voids 4 1 1 # Bowel Movements 4 4 - Exam GENERAL EXAM: Alert, very pleasant, 74-year-old white male, on room air with a pulse ox of 96%, comfortable in no apparent distress. HEAD: Normocephalic/atraumatic. EYES: Normal reaction of pupils, equal size. Conjunctiva pink, sclera white. NOSE: Clear with pink turbinates. THROAT: No erythema or exudates. NECK: No masses, no JVD, no thyroid enlargement, no adenopathy. CHEST: No chest wall deformity. Symmetrical expansion. LUNGS: Equal air entry with basilar crackles, but no wheeze, rhonchi or dullness. CVS: Regular rate and rhythm, normal S1 and S2, no gallops, no murmurs, no rubs ABDOMEN: Soft, nontender. No hepatosplenomegaly, normal bowel sounds, no guarding or rigidity. EXTREMITIES: No clubbing, no edema, no cyanosis, 2+ pulses and upper and lower extremities. MUSCULOSKELETAL: Muscle strength and tone normal. SPINE: No scoliosis or deformity SKIN: No rashes CENTRAL NERVOUS SYSTEM: Alert and oriented -3. No focal deficits, tone is normal in all 4 extremities. PSYCHIATRIC: Alert and oriented -3. Appropriate affect. Intact judgment and insight. - Labs CBC & Chem 7: 12/25/19 07:00 12/25/19 07:00 Labs: Abnormal Lab Results - Last 24 Hours (Table) 12/25/19 12/25/19 12/25/19 Range/Units 07:00 07:00 07:00 RBC 3.31 L (4.30-5.90) m/uL Hgb 9.1 L (13.0-17.5) gm/dL Hct 30.3 L (39.0-53.0) % MCHC 30.2 L (31.0-37.0) g/dL RDW 15.7 H (11.5-15.5) % Lymphocytes # 0.7 L (1.0-4.8) k/uL PT 16.2 H (9.0-12.0) sec INR 1.6 H (<1.2) Chloride 111 H (98-107) mmol/L BUN 7 L (9-20) mg/dL Calcium 8.1 L (8.4-10.2) mg/dL Microbiology - Last 24 Hours (Table) 12/21/19 17:04 Blood Culture - Preliminary Blood No Growth after 72 hours 12/21/19 23:48 Gram Stain - Final Sputum Sputum Culture - Final Assessment and Plan Plan: Assessment: 1 acute right lower lobe pneumonia, consider bacterial. Influenza screen was negative. Low risk for covid-19, and the chest x-ray shows a stable right lower lobe consolidation and there are no signs of overt or impending respiratory failure for now. His condition is stable and the patient is covered with a combination of Rocephin and Zithromax. Cultures are negative. 2 acute febrile illness. The patient only had a 1 spike of temperature and currently is afebrile 3 subacute blood loss anemia, consider low-grade GI bleed. The patient has positive occult blood. GI has been consulted. Coumadin as and placed on hold. INR is at 2.2. Received a total of 3 units of packed RBC. GI is on the case. Currently on Protonix. Consider an upper GI source of bleeding. The patient would have a repeat PT/INR today. Hemoglobin stable at 8.5. 4 long-term articulation with warfarin, currently on hold 5 peripheral vascular disease with previous vascular intervention and possible aortobifem bypass graft 6 COPD with some limited exacerbation secondary right lower lobe pneumonia 7 impaired cognition and memory, consider underlying dementia 8 mild lactic acidosis, improved lactic acid level is down to 1.4 Plan: Yesterday's chest x-ray has been reviewed showing increasing right basilar airspace disease and pleural effusion, consider parapneumonic effusion, there has been no evidence of bleeding, hemoglobin is 9.1 today, INR is 1.6, patient has been prepped for EGD and colonoscopy this afternoon with Dr. Munson, we will consider obtaining CT chest to characterize the right lower lobe pneumonia and parapneumonic effusion. At this time patient is getting extremely inpatient and he states that he really would like to go home this afternoon, however he was advised that in view of his worsening chest x-ray findings it would not be recommended to leave AGAINST MEDICAL ADVICE. I performed a history & physical examination of the patient and discussed their management with my nurse practitioner, Jhoana Sharma. I reviewed the nurse practitioner's note and agree with the documented findings and plan of care. Lung sounds are positive for basilar crackles. The findings and the impression was discussed with the patient. I attest to the documentation by the nurse practitioner. Time with Patient: Less than 30
--- NOTE | 2019-12-25 10:00 | US ---
EXAMINATION TYPE: US chest DATE OF EXAM: 12/25/2019 COMPARISON: Chest x-ray from yesterday. CLINICAL HISTORY: right parapneumonic effusion. TECHNIQUE: Targeted ultrasound of the posterior lower right hemithorax EXAM MEASUREMENTS: Right Pleural Effusion pocket size: 8.2 cm Right skin surface to fluid distance: 2.7 cm Right side marked for possible thoracentesis outside the dept. Pulmonologists are able to review the images in the patient?s EMR. 5 images saved confirm small right pleural effusion which correlates with x-ray from one day earlier. IMPRESSIONS: As above.
[2019-12-25 11:42] VITALS: PULSE 68
[2019-12-25] MEDS ORDERED: LIDOCAINE 1% INJ 10MG/ML (20 ML MDV) ONE (12:35)
[2019-12-25] MEDS ORDERED: PROPOFOL 10 MG/ML 20 ML VIAL IV ONE (12:35)
[2019-12-25] MEDS ORDERED: IV FLUID CONTINUATION 1,000 ML IV ONE ×2 (12:40)
--- NOTE | 2019-12-25 13:42 | P.PCN ---
Date of Procedure: 12/25/19 Procedure(s) Performed: Brief history: Patient is a pleasant 74-year-old white male admitted hospital with symptomatic anemia and hemoglobin of 6.5 g/dL requiring 2 units of blood transfusion . He denies any GI symptoms. Has been on Coumadin for history of DVT which is currently on hold. He is scheduled for an upper endoscopy as well as colonoscopy as a part of evaluation of severe symptomatic anemia and Hemoccult- positive stool. Procedure performed: Esophagogastroduodenoscopy with biopsy Colonoscopy with snare polypectomy Preoperative diagnosis: Severe symptomatic anemia and Hemoccult-positive stool Anesthesia: [facility] [place] Procedure: After informed consent was obtained from the patient was brought into the endoscopy unit and IV sedation was administered by anesthesia under continuous monitoring. Initially upper endoscopy was done. The Olympus GF 160 video endoscope was inserted inserted into the mouth and esophagus intubated without any difficulty and was gradually advanced into the stomach and duodenum and carefully examined. The bulb and second part of the duodenum appeared normal. Mild duodenitis noted in the bulb of the duodenum. The scope was then withdrawn into the stomach adequately insufflated with air and upon careful examination the antrum had mild gastritis and biopsies were done from this area. The body, cardia and fundus appeared normal. The scope was then withdrawn into the esophagus. The GE junction was located at 40 cm to the incisors. It appeared regular with no erythema erosions or ulcerations. Rest of the esophagus appeared normal. Patient tolerated the procedure well. At this time the patient continued to remain sedation. Initial digital rectal examination was normal. Olympus CF 160 video colonoscope was then inserted into the rectum and gradually advanced to the cecum without any difficulty. Careful examination was performed as the scope was gradually being withdrawn. The prep was excellent. In the base of the cecum there was a 1.5 cm broad-based polyp that was removed by snare polypectomy. The cecum, ascending colon, transverse colon, descending colon, sigmoid colon and rectum appeared normal. In the mid rectum there were 2 polyps measuring 5 mm in size both of which were removed by snare polypectomy. Scattered sigmoid diverticulosis seen. Retroflexion was performed in the rectum and no lesions were noted. Patient tolerated the procedure well. Impression: 1. Upper endoscopy revealed mild antral gastritis and duodenitis 2. Colonoscopy revealed 1.5 cm broad-based cecal polyp and 5 mm 2 rectal polyps status post snare polypectomy. Scattered sigmoid diverticulosis Recommendations: Findings of this examination were discussed with the patient . He was advised to follow with the biopsy results. Coumadin can be resumed today. He can be discharged home today with outpatient follow-up in 2-3 weeks to discuss the biopsy results
--- NOTE | 2019-12-26 10:41 | P.DS ---
Providers Date of admission: 12/21/19 16:44 Expected date of discharge: 12/25/19 Attending physician: Chavez Garcia Consults: 12/21/19 16:42 Consult Physician Stat Consulting Provider: Meche Ga Consult Reason/Comments: Pneumonia, septic shock Do you want consulting provider notified?: Already Contacted 12/21/19 16:55 Consult Physician Urgent Consulting Provider: Di Munson Consult Reason/Comments: gi hemorrhage Do you want consulting provider notified?: Yes Primary care physician: [facility] Course: Final diagnosis Chronic obstructive pulmonary disease, acute exacerbation with acute right lower lobe pneumonia, possibly aspiration, possibly gram-negative, present on admission with sepsis Change in mental status, metabolic encephalopathy, secondary to sepsis and multifactorial Anemia, possibly acute on chronic, with GI bleed status post transfusion Elevated plasma lactic acid, possibly secondary to sepsis, present on admission Long-term anticoagulation with Coumadin for atrial fibrillation, paroxysmal Peripheral vascular disease Continued ongoing nicotine dependence History of ethanol history of chronic obstructive pulmonary disease History of MTHFR History of degenerative joint disease Mild protein calorie malnutrition Full code Discharge disposition Patient is being discharged in a stable condition with guarded prognosis to [facility]. Patient will follow-up with Dr. Fabian Whatley upon discharge. Patient will also follow-up with Dr. Wooten and Dr. Jeimy HERNANDEZ in the outpatient setting. Patient will continue with a short course of oral antibiotics in the form of Ceftin and Zithromax. Total time taken is 35 minutes. History of present illness This is an 74-year-old male who was recently admitted with COPD, acute exacerbation along with acute right lower lobe pneumonia possibly gram-negative and aspiration pneumonia and was being closely monitored. Patient also had a change in mental status and some anemia requiring transfusion. Patient was seen and evaluated by pulmonary recommending outpatient follow-up as the chest shows a small pleural effusion although patient is asymptomatic. Patient was also seen and evaluated by GI and underwent EGD and colonoscopy showing mild antral gastritis and duodenitis and colonoscopy revealed 1.5 cm broad-based cecal polyp and 5 mm x 2 rectal polyp status post snare polypectomy and some scattered sigmoid diverticulosis. Patient will be resumed on his Coumadin and will follow-up with GI in the outpatient setting in 2-3 weeks for results. Patient will continue on bronchodilators along with short course of oral antibiotics in the form of Ceftin along with Zithromax to complete the treatment. Currently no reports of chest pain, shortness of breath, or palpitations. Patient is afebrile. No reports of nausea or vomiting and patient is tolerating diet. Guarded prognosis. On exam vital signs are stable. Temp is 97.9 F, pulse is 65, respirations are 17, blood pressure is 172/72, oxygen saturation is 97% on room air. Cardio S1, S2 are muffled. Respiratory shows diminished breath sounds at the bases with a few scattered rhonchi noted. Abdomen is soft and nontender. Nervous system shows no focal deficits. Please refer to medication reconciliation sheet for a list of medications. Patient Condition at Discharge: Stable Plan - Discharge Summary Discharge Rx Participant: No New Discharge Prescriptions: New Cefuroxime Axetil [Ceftin] 500 mg PO BID 3 Days #6 tab Ipratropium-Albuterol Nebulize [Duoneb 0.5 mg-3 mg/3 ml Soln] 3 ml INHALATION RT-Q4H PRN ml PRN Reason: shortness of breath Ipratropium-Albuterol Nebulize [Duoneb 0.5 mg-3 mg/3 ml Soln] 3 ml INHALATION RT-QID ml Multivitamins, Thera [Multivitamin (formulary)] 1 each PO DAILY@1200 30 Days #30 tab Azithromycin [Zithromax] 500 mg PO Q24H 3 Days #3 tab Continue Warfarin [Coumadin] 5 mg PO DAILY Folic Acid 1 mg PO HS Aspirin EC [Ecotrin Low Dose] 81 mg PO DAILY Discontinued Ipratropium-Albuterol Nebulize [Duoneb 0.5 mg-3 mg/3 ml Soln] 3 ml INHALATION RT-QID PRN PRN Reason: Shortness Of Breath Discharge Medication List Aspirin EC [Ecotrin Low Dose] 81 mg PO DAILY 11/26/19 [History] Folic Acid 1 mg PO HS 11/26/19 [History] Warfarin [Coumadin] 5 mg PO DAILY 11/26/19 [History] Azithromycin [Zithromax] 500 mg PO Q24H 3 Days #3 tab 12/25/19 [Rx] Cefuroxime Axetil [Ceftin] 500 mg PO BID 3 Days #6 tab 12/25/19 [Rx] Ipratropium-Albuterol Nebulize [Duoneb 0.5 mg-3 mg/3 ml Soln] 3 ml INHALATION RT-Q4H PRN ml 12/25/19 [Rx] Ipratropium-Albuterol Nebulize [Duoneb 0.5 mg-3 mg/3 ml Soln] 3 ml INHALATION RT-QID ml 12/25/19 [Rx] Multivitamins, Thera [Multivitamin (formulary)] 1 each PO DAILY@1200 30 Days #30 tab 12/25/19 [Rx] Follow up Appointment(s)/Referral(s): Tamiko Wooten MD [STAFF PHYSICIAN] - 1 Week Fabian Whatley DO [Primary Care Provider] - 01/29/20 1:30 pm Di Munson MD [STAFF PHYSICIAN] - 01/10/20 10:30 am (With Jennifer Rivers Please arrive 15 minutes early. Bring insurance card and picture ID) Ambulatory/Diagnostic Orders: Complete Blood Count w/diff [LAB.AMB] Time Frame: 2 Days, Location: None Selected Prothrombin Time INR [LAB.AMB] Time Frame: 2 Days, Location: None Selected Patient Instructions/Handouts: Gastrointestinal Bleeding (DC), Diverticulosis (DC), Diverticulosis Diet (GEN), Anemia (DC), Pneumonia (DC) Activity/Diet/Wound Care/Special Instructions: Activity Limited until follow-up Follow-up with primary care provider upon discharge Follow-up with GI in 1-2 weeks for results May resume Coumadin today Repeat labs in 2-3 days Continue current diet Continue with antibiotics until finished Discharge Disposition: HOME SELF-CARE
== END 2019-12-25 15:34 | disposition home or self-care (01) | DRG 871 ==
LOC: EC 14:43 → 2SICU 16:44 → 4SSUR 12-23 09:41
PROVIDERS: ADMIT Hospitalist; ATTEND Hospitalist
PROC: 30233N1 Transfusion of Nonautologous Red Blood Cells into Peripheral Vein, Percutaneous Approach (ICD-10-PCS; 2019-12-21)
PROC: 0DBP8ZX Excision of Rectum, Via Natural or Artificial Opening Endoscopic, Diagnostic (ICD-10-PCS; principal; 2019-12-25 08:50)
PROC: 0DBH8ZX Excision of Cecum, Via Natural or Artificial Opening Endoscopic, Diagnostic (ICD-10-PCS; principal; 2019-12-25 08:50)
PROC: 0DB78ZX Excision of Stomach, Pylorus, Via Natural or Artificial Opening Endoscopic, Diagnostic (ICD-10-PCS; principal; 2019-12-25 08:50)
DX: A41.50 Gram-negative sepsis, unspecified (principal); G93.41 Metabolic encephalopathy; J15.6 Pneumonia due to other Gram-negative bacteria; J69.0 Pneumonitis due to inhalation of food and vomit; D62 Acute posthemorrhagic anemia; E44.1 Mild protein-calorie malnutrition; E72.12 Methylenetetrahydrofolate reductase deficiency; J44.0 Chronic obstructive pulmonary disease with (acute) lower respiratory infection; J44.1 Chronic obstructive pulmonary disease with (acute) exacerbation; J90 Pleural effusion, not elsewhere classified; K92.2 Gastrointestinal hemorrhage, unspecified; F03.90 Unspecified dementia, unspecified severity, without behavioral disturbance, psychotic disturbance, mood disturbance, and anxiety; F17.200 Nicotine dependence, unspecified, uncomplicated; I48.0 Paroxysmal atrial fibrillation; I73.9 Peripheral vascular disease, unspecified; K29.70 Gastritis, unspecified, without bleeding; K29.80 Duodenitis without bleeding; K57.30 Diverticulosis of large intestine without perforation or abscess without bleeding; K62.1 Rectal polyp; K63.5 Polyp of colon; M19.90 Unspecified osteoarthritis, unspecified site; Z79.01 Long term (current) use of anticoagulants; Z79.82 Long term (current) use of aspirin; Z86.718 Personal history of other venous thrombosis and embolism; Z79.899 Other long term (current) drug therapy
CPT/HCPCS: 36415; 43239; 45385; 71045; 71046; 76604; 80048; 80053; 81001; 82272; 83605; 83880; 84484; 85025; 85027; 85610; 85730; 86850; 86900; 86901; 86920; 87040; 87070; 87205; 87502; 87634; 88305; 93005; 94640; 94760; 96374; 99291

== ENCOUNTER → 2020-04-21 | Outpatient (CLI) | payer MEDICARE ==
[2020-04-21 12:04] LABS: Anisocytosis Slight; Basophils # (A) 0.1 k/uL (0-0.2); Basophils % (A) 1 %; Eosinophils # (A) 0.3 k/uL (0-0.7); Eosinophils % (A) 4 %; HCT 42.5 % (39.0-53.0); HGB 13.6 gm/dL (13.0-17.5); Lymphocytes # (A) 1.7 k/uL (1.0-4.8); Lymphocytes % (A) 22 %; MCV 90.6 fL (80.0-100.0); Mean Platelet Volume 7.7; Monocytes # (A) 0.5 k/uL (0-1.0); Monocytes % (A) 7 %; Neutrophils # (A) 4.9 k/uL (1.3-7.7); Neutrophils % (A) 65 %; Platelet Count 148 k/uL (150-450); RDW 16.5 % (11.5-15.5); WBC 7.6 k/uL (3.8-10.6)
[2020-04-21 15:30] LABS: % Iron Saturation 49.51 (15.00-50.00)
[2020-04-21 15:39] LABS: Ferritin 74.3 ng/mL (22.0-322.0)
== END | disposition home or self-care (01) ==
LOC: LABWHC1 10:48
PROVIDERS: ATTEND Internal Medicine Gastroenterology
DX: D50.9 Iron deficiency anemia, unspecified (principal)
CPT/HCPCS: 36415; 82728; 83540; 83550; 85025

== ENCOUNTER → 2021-07-01 | Outpatient (CLI) | payer MEDICARE ==
[2021-07-01 23:01] LABS: INR 2.43 (0.90-1.11)
== END | disposition home or self-care (01) ==
LOC: LABWHC1 14:19
PROVIDERS: ATTEND Surgery
DX: Z51.81 Encounter for therapeutic drug level monitoring (principal)
CPT/HCPCS: 36415; 85610

== ENCOUNTER 2021-09-29 21:00 | Observation (INO) | payer MEDICARE ==
--- NOTE | 2021-09-29 21:58 | ED ---
General Adult HPI - General Chief complaint: Fall Stated complaint: Fall Time Seen by Provider: 09/29/21 21:04 Source: patient, family, EMS, RN notes reviewed, old records reviewed Mode of arrival: EMS - History of Present Illness Initial comments: 76-year-old male presents for evaluation generalized weakness. Patient is brought in by paramedics after a minor fall and inability to stand after using the bathroom. His family reports progressive weakness. He states he's had a similar episode similar to this in the past. There's been no reported fever. No vomiting or diarrhea. The patient has no complaints time my evaluation. He denies head injury. He denies chest pain or abdominal pain. - Related Data Home Medications Medication Instructions Recorded Confirmed Aspirin EC [Ecotrin Low Dose] 81 mg PO DAILY 11/26/19 09/29/21 Folic Acid 1 mg PO HS 11/26/19 09/29/21 Warfarin [Coumadin] 5 mg PO DAILY 11/26/19 09/29/21 Allergies Allergy/AdvReac Type Severity Reaction Status Date / Time No Known Allergies Allergy Verified 09/29/21 21:52 Review of Systems ROS Statement: Those systems with pertinent positive or pertinent negative responses have been documented in the HPI. ROS Other: All systems not noted in ROS Statement are negative. 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, COPD History of Any Multi-Drug Resistant Organisms: None Reported Past Surgical History: Unable to Obtain Additional Past Surgical History / Comment(s): right hip fx, Past Anesthesia/Blood Transfusion Reactions: No Reported Reaction Past Psychological History: No Psychological Hx Reported Smoking Status: Former smoker Past Alcohol Use History: Daily Past Drug Use History: None Reported General Exam General appearance: alert, in no apparent distress Head exam: Present: atraumatic, normocephalic Eye exam: Present: normal appearance, PERRL ENT exam: Present: normal exam Neck exam: Present: normal inspection. Absent: tenderness, meningismus Respiratory exam: Present: normal lung sounds bilaterally. Absent: respiratory distress, wheezes Cardiovascular Exam: Present: regular rate, normal rhythm GI/Abdominal exam: Present: soft. Absent: distended, tenderness, guarding, rebound Extremities exam: Present: normal inspection, normal capillary refill. Absent: pedal edema, calf tenderness Neurological exam: Present: alert, oriented X3, CN II-XII intact. Absent: motor sensory deficit Psychiatric exam: Present: normal affect, normal mood Skin exam: Present: warm, dry, intact. Absent: cyanosis, diaphoretic Course Vital Signs 09/29/21 21:01 Temperature 98.6 F Pulse Rate 86 Respiratory 20 Rate Blood Pressure 191/81 O2 Sat by Pulse 97 Oximetry EKG Findings - EKG Comments: EKG Findings:: EKG: Normal sinus rhythm, low voltage, rate of 78, PA interval 146 over QRS duration 88, QTC 412, no ST segment elevation. Medical Decision Making - Medical Decision Making 76-year-old male presenting with generalized weakness and mild confusion. History is obtainable from the patient and from family members. Patient has no focal weakness on exam. He is hypertensive with otherwise stable vitals. He has a normal CBC, normal CMP, negative troponin. Both coronavirus testing and urinalysis is pending. Chest x-rays negative for large focal pneumonia or acute findings. Head CT negative for intracranial hemorrhage or mass effect. Did x- ray the pelvis which was negative for acute bony abnormalities. Patient is mildly confused, he's having some difficulties at home. He lives on the second floor apartment and family states it is impossible to get him up the stairs. He may require placement. Case discussed with Dr. Guillen, who will admit. - Lab Data Result diagrams: 09/29/21 21:58 09/29/21 21:58 Lab Results 09/29/21 09/29/21 09/29/21 Range/Units 21:58 21:58 21:58 WBC 10.7 H (3.8-10.6) k/uL RBC 4.56 (4.30-5.90) m/uL Hgb 14.1 (13.0-17.5) gm/dL Hct 42.2 (39.0-53.0) % MCV 92.5 (80.0-100.0) fL MCH 30.9 (25.0-35.0) pg MCHC 33.4 (31.0-37.0) g/dL RDW 13.3 (11.5-15.5) % Plt Count 144 L (150-450) k/uL MPV 8.0 Neutrophils % 88 % Lymphocytes % 6 % Monocytes % 4 % Eosinophils % 2 % Basophils % 0 % Neutrophils # 9.4 H (1.3-7.7) k/uL Lymphocytes # 0.6 L (1.0-4.8) k/uL Monocytes # 0.4 (0-1.0) k/uL Eosinophils # 0.2 (0-0.7) k/uL Basophils # 0.0 (0-0.2) k/uL Sodium 138 (137-145) mmol/L Potassium 3.7 (3.5-5.1) mmol/L Chloride 102 (98-107) mmol/L Carbon Dioxide 27 (22-30) mmol/L Anion Gap 9 mmol/L BUN 17 (9-20) mg/dL Creatinine 0.91 (0.66-1.25) mg/dL Est GFR (CKD-EPI)AfAm >90 (>60 ml/min/1.73 sqM) Est GFR (CKD-EPI)NonAf 81 (>60 ml/min/1.73 sqM) Glucose 106 H (74-99) mg/dL Plasma Lactic Acid Marcellus 1.1 (0.7-2.0) mmol/L Calcium 9.1 (8.4-10.2) mg/dL Magnesium 2.1 (1.6-2.3) mg/dL Total Bilirubin 1.1 (0.2-1.3) mg/dL AST 21 (17-59) U/L ALT 11 (4-49) U/L Alkaline Phosphatase 75 (38-126) U/L Troponin I (0.000-0.034) ng/mL Total Protein 6.8 (6.3-8.2) g/dL Albumin 4.0 (3.5-5.0) g/dL 09/29/21 Range/Units 21:58 WBC (3.8-10.6) k/uL RBC (4.30-5.90) m/uL Hgb (13.0-17.5) gm/dL Hct (39.0-53.0) % MCV (80.0-100.0) fL MCH (25.0-35.0) pg MCHC (31.0-37.0) g/dL RDW (11.5-15.5) % Plt Count (150-450) k/uL MPV Neutrophils % % Lymphocytes % % Monocytes % % Eosinophils % % Basophils % % Neutrophils # (1.3-7.7) k/uL Lymphocytes # (1.0-4.8) k/uL Monocytes # (0-1.0) k/uL Eosinophils # (0-0.7) k/uL Basophils # (0-0.2) k/uL Sodium (137-145) mmol/L Potassium (3.5-5.1) mmol/L Chloride (98-107) mmol/L Carbon Dioxide (22-30) mmol/L Anion Gap mmol/L BUN (9-20) mg/dL Creatinine (0.66-1.25) mg/dL Est GFR (CKD-EPI)AfAm (>60 ml/min/1.73 sqM) Est GFR (CKD-EPI)NonAf (>60 ml/min/1.73 sqM) Glucose (74-99) mg/dL Plasma Lactic Acid Marcellus (0.7-2.0) mmol/L Calcium (8.4-10.2) mg/dL Magnesium (1.6-2.3) mg/dL Total Bilirubin (0.2-1.3) mg/dL AST (17-59) U/L ALT (4-49) U/L Alkaline Phosphatase (38-126) U/L Troponin I <0.012 (0.000-0.034) ng/mL Total Protein (6.3-8.2) g/dL Albumin (3.5-5.0) g/dL Disposition Clinical Impression: Weakness, Fall, AMS (altered mental status) Disposition: ADMITTED IP TO THIS [facility] Condition: Stable Is patient prescribed a controlled substance at d/c from ED?: No Referrals: Fabian Whatley DO [Primary Care Provider] - 1-2 days Decision to Admit Reason: Admit from EC Decision Date: 09/29/21 Decision Time: 22:41
--- NOTE | 2021-09-29 22:01 | CT ---
EXAMINATION TYPE: CT brain wo con DATE OF EXAM: 09/29/2021 COMPARISON: 11/25/2019 HISTORY: fall CT DLP: 1184.4 mGycm Automated exposure control for dose reduction was used. There is cerebral cortical atrophy. There is no mass effect nor midline shift. There is no sign of in tracranial hemorrhage. Calvarium is intact. There is normal aeration of the mastoid sinuses. IMPRESSION: Cerebral atrophy. No acute intracranial abnormality.
--- NOTE | 2021-09-29 22:04 | XR ---
EXAMINATION TYPE: XR pelvis AP view DATE OF EXAM: 09/29/2021 COMPARISON: NONE HISTORY: Fall. Pain TECHNIQUE: Jeni view FINDINGS: Pelvic ring is intact. There is right hip nailing. Sacroiliac joints are intact. There is v ascular calcification. IMPRESSION: No acute abnormality of the pelvis.
--- NOTE | 2021-09-29 22:05 | XR ---
EXAMINATION TYPE: XR chest 1V portable DATE OF EXAM: 09/29/2021 COMPARISON: 12/24/2019 HISTORY: Fall. Chest pain TECHNIQUE: FINDINGS: Heart and mediastinum are normal. Lungs are clear of infiltrate. There is no heart failure. Costophrenic angles are clear. There are no hilar masses. IMPRESSION: No active cardiopulmonary disease. There is clearing of the pleural fluid and infiltrate right lung base compared to old exam.
[2021-09-29 22:11] LABS: Basophils % (A) 0 %; Eosinophils # (A) 0.2 k/uL (0-0.7); Eosinophils % (A) 2 %; HCT 42.2 % (39.0-53.0); HGB 14.1 gm/dL (13.0-17.5); Lymphocytes # (A) 0.6 k/uL (1.0-4.8); Lymphocytes % (A) 6 %; MCH 30.9 pg (25.0-35.0); MCHC 33.4 g/dL (31.0-37.0); MCV 92.5 fL (80.0-100.0); Monocytes # (A) 0.4 k/uL (0-1.0); Monocytes % (A) 4 %; Neutrophils # (A) 9.4 k/uL (1.3-7.7); Neutrophils % (A) 88 %; Platelet Count 144 k/uL (150-450); RBC 4.56 m/uL (4.30-5.90); RDW 13.3 % (11.5-15.5); WBC 10.7 k/uL (3.8-10.6)
[2021-09-29 22:23] LABS: ALT 11 U/L (4-49); AST 21 U/L (17-59); African American GFR (CKD) >90 (>60 ml/min/1.73 sqM); Alkaline Phosphatase 75 U/L (38-126); Anion Gap 9 mmol/L; Blood Urea Nitrogen 17 mg/dL (9-20); Calcium 9.1 mg/dL (8.4-10.2); Carbon Dioxide 27 mmol/L (22-30); Chloride 102 mmol/L (98-107); Glucose 106 mg/dL (74-99); Magnesium 2.1 mg/dL (1.6-2.3); Non-African American GFR(CKD) 81 (>60 ml/min/1.73 sqM); Potassium 3.7 mmol/L (3.5-5.1); Sodium 138 mmol/L (137-145); Total Bilirubin 1.1 mg/dL (0.2-1.3); Total Protein 6.8 g/dL (6.3-8.2)
[2021-09-29 22:28] LABS: INR 1.9 (<1.2); Partial Thromboplastin Time 30.4 sec (22.0-30.0); Prothrombin Time 19.1 sec (9.0-12.0)
[2021-09-29] MEDS ORDERED: SODIUM CHLORIDE 0.9% 500 ML 500 ML IV ONE (22:32)
[2021-09-29] MEDS ORDERED: NALOXONE 0.4 MG/ML 1 ML VIAL IV PRN (22:37)
[2021-09-29] MEDS ORDERED: ACETAMINOPHEN TAB 325 MG TAB PO PRN (22:37)
[2021-09-29] MEDS ORDERED: SODIUM CHLORIDE 0.9% 1,000 ML IV SCH (22:45)
[2021-09-29 23:48] LABS: Appearance,Urine Clear (Clear); Bacteria,Urine Rare /hpf; Bilirubin,Urine Negative (Negative); Blood,Urine Small (Negative); Budding Yeast,Urine Rare /hpf; Color,Urine Yellow; Glucose,Urine (UA) Negative (Negative); Ketones,Urine Negative (Negative); Leukocyte Esterase,Urine Negative (Negative); Mucus,Urine Rare /hpf; Nitrite,Urine Negative (Negative); Protein,Urine Trace (Negative); RBC,Urine 9 /hpf (0-5); Specific Gravity,Urine 1.024 (1.001-1.035); Squamous Epithelial Cell,Urine 1 /hpf (0-4); WBC,Urine 2 /hpf (0-5)
--- NOTE | 2021-09-29 23:59 | P.HPIM ---
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 The history was supplemented by the and daughter at the bedside. Patient reports that he was using his toilet and upon finishing, he stood up and became lightheaded, and fell to the ground. The patient denied suffering any injuries from the fall but reports that he was unable to get up afterwards. The patient called for his who was also not able to get him up and she thereby had to activate EMS. The patient notes that he routinely ambulates with a walker and although they live on the second floor, he does get out of the house multiple times a week and is able to climb up and down the 8 stairs without much difficulty. In fact, he went out shopping with his earlier today. The reports however that although he is able to climb the stairs, he has a difficult time getting up from a seated or laying down position. The patient has a history of a hip fracture several years ago for which he underwent subacute rehab therapy. Patient denied any additional complaints. He denied focal weakness, numbness, tingling. Denied headaches, visual disturbances, speech impairment. Denied chest discomfort, shortness of breath, palpitations, nausea, vomiting, abdominal pain. Review of systems: Pertinent positives and negatives as discussed in HPI, a complete review of systems was performed and all other systems are negative. Physical examination: General: non toxic, no distress, appears at stated age, underweight Derm: no unusual rashes/lesions no unusual ecchymoses, warm, dry Head: atraumatic, normocephalic, symmetric Eyes: EOMI, no lid lag, anicteric sclera, pupils equal round reactive to light ENT: Nose and ears atraumatic, no thrush, no pharyngeal erythema Neck: No thyromegaly, no cervical lymphadenopathy, trachea midline, supple Mouth: no lip lesion, mucus membranes moist Cardiovascular: S1S2 reg, no murmur, positive posterior tibial pulse bilateral, no edema, capillary refill less than 2 seconds Lungs: CTA bilateral, no rhonchi, no rales , no accessory muscle use Abdominal: soft, nontender to palpation, no guarding, no appreciable organomegaly, normal bowel sounds Ext: Thin extremities, muscle strength 4 out of 5 in all 4 extremities grossly, no contractures, Neuro: CN II-XI grossly intact, light touch intact all 4 extremities, finger to nose within normal limits, Psych: Alert, oriented, appropriate affect Assessment/plan Fall and debility -PT consult -Fall precautions -Check ESR Thrombocytopenia -at baseline Hypercoagulability -C/w Coumadin DVT prophylaxis -Coumadin The patient is admitted with an anticipated less than 2 midnight stay for evaluation of debility CODE STATUS: Full Code Discussed with: Patient Anticipated discharge date: in am Anticipated discharge place: Home/[facility] 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, COPD History of Any Multi-Drug Resistant Organisms: None Reported Past Surgical History: Unable to Obtain Additional Past Surgical History / Comment(s): right hip fx, Past Anesthesia/Blood Transfusion Reactions: No Reported Reaction Past Psychological History: No Psychological Hx Reported Smoking Status: Former smoker Past Alcohol Use History: Daily Past Drug Use History: None Reported Medications and Allergies Home Medications Medication Instructions Recorded Confirmed Type Aspirin EC [Ecotrin Low Dose] 81 mg PO DAILY 11/26/19 09/29/21 History Folic Acid 1 mg PO HS 11/26/19 09/29/21 History Warfarin [Coumadin] 5 mg PO DAILY 11/26/19 09/29/21 History Allergies Allergy/AdvReac Type Severity Reaction Status Date / Time No Known Allergies Allergy Verified 09/29/21 21:52 Physical Exam Vitals: Vital Signs Temp Pulse Resp BP Pulse Ox 09/29/21 21:01 98.6 F 86 20 191/81 97 Intake and Output 09/29/21 09/29/21 09/30/21 14:59 22:59 06:59 Other: Weight 61.235 kg Results CBC & Chem 7: 09/29/21 21:58 09/29/21 21:58 Labs: Abnormal Lab Results - Last 24 Hours (Table) 09/29/21 09/29/21 09/29/21 Range/Units 21:58 21:58 21:58 WBC 10.7 H (3.8-10.6) k/uL Plt Count 144 L (150-450) k/uL Neutrophils # 9.4 H (1.3-7.7) k/uL Lymphocytes # 0.6 L (1.0-4.8) k/uL PT 19.1 H (9.0-12.0) sec INR 1.9 H (<1.2) APTT 30.4 H (22.0-30.0) sec Glucose 106 H (74-99) mg/dL
[2021-09-30] MEDS ORDERED: ASPIRIN 81 MG PO SCH (09:00)
[2021-09-30 09:25] LABS: HCT 38.3 % (39.6-50.0); HGB 12.3 g/dL (13.0-17.0); MCH 30.2 pg (27.0-32.0); MCHC 32.1 g/dL (32.0-37.0); MCV 94.1 fL (80.0-97.0); Mean Platelet Volume 10.5 fL (9.5-12.2); Platelet Count 137 X 10*3/uL (140-440); RBC 4.07 X 10*6/uL (4.40-5.60); RDW 13.6 % (11.5-14.5); WBC 10.97 X 10*3/uL (4.50-10.00)
[2021-09-30 09:53] LABS: African American GFR (CKD) 94.5 (60.0-200.0); Anion Gap 11.3 mmol/L (10.00-18.00); Blood Urea Nitrogen 12.6 mg/dL (9.0-27.0); Calcium 8.9 mg/dL (8.7-10.3); Carbon Dioxide 25.7 mmol/L (20.0-27.5); Non-African American GFR(CKD) 81.5 (60.0-200.0); Potassium 4.4 mmol/L (3.5-5.5)
[2021-09-30 13:06] LABS: INR 1.7 (<1.2); Prothrombin Time 16.8 sec (9.0-12.0)
--- NOTE | 2021-09-30 15:08 | P.DS ---
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 Patient reports that he was using his toilet and upon finishing, he stood up and became lightheaded, and fell to the ground. The patient denied suffering any injuries from the fall but reports that he was unable to get up afterwards. The patient called for his who was also not able to get him up and she thereby had to activate EMS. The patient notes that he routinely ambulates with a walker and although they live on the second floor, he does get out of the house multiple times a week and is able to climb up and down the 8 stairs without much difficulty. The reports however that although he is able to climb the stairs, he has a difficult time getting up from a seated or laying down position. The patient has a history of a hip fracture several years ago for which he underwent subacute rehab therapy. Patient denied any additional complaints. He denied focal weakness, numbness, tingling. Denied headaches, visual disturbances, speech impairment. Denied chest discomfort, shortness of breath, palpitations, nausea, vomiting, abdominal pain. Extensive evaluation in the emergency department with laboratory assessment, chest x-ray, EKG, pelvis x-ray, head CT were all negative for any acute abnormalities. Patient was admitted to the hospital for further monitoring. He was evaluated by physical therapy today. He was found to be at baseline, no further therapy was recommended. He is currently stable, he is ambulating without difficulties. was questioning the Coumadin dose for today, INR checked, came back at 1.9. She was told to give him 6 mg of Coumadin tonight and then call his primary care physician for the next step. He will be discharged home in stable condition. Patient Condition at Discharge: Stable Plan - Discharge Summary Discharge Rx Participant: No New Discharge Prescriptions: New Ipratropium-Albuterol Nebulize [Duoneb 0.5 mg-3 mg/3 ml Soln] 3 ml INHALATION QID PRN 30 Days #90 ml PRN Reason: Shortness Of Breath Continue Warfarin [Coumadin] 5 mg PO DAILY Folic Acid 1 mg PO HS Aspirin EC [Ecotrin Low Dose] 81 mg PO DAILY Discharge Medication List Aspirin EC [Ecotrin Low Dose] 81 mg PO DAILY 11/26/19 [History] Folic Acid 1 mg PO HS 11/26/19 [History] Warfarin [Coumadin] 5 mg PO DAILY 11/26/19 [History] Ipratropium-Albuterol Nebulize [Duoneb 0.5 mg-3 mg/3 ml Soln] 3 ml INHALATION QID PRN 30 Days #90 ml 09/30/21 [Rx] Follow up Appointment(s)/Referral(s): Fabian Whatley DO [Primary Care Provider] - 1-2 days [facility], [NON-STAFF] - 1-2 Days
[2021-09-30 15:14] VITALS: BP 163/79; PULSE 55; RESP 17; TEMP 98.4
[2021-09-30] MEDS ORDERED: WARFARIN 3 MG TAB PO ONE (18:00)
[2021-09-30] MEDS ORDERED: FOLIC ACID 1 MG TAB PO SCH (21:00)
== END 2021-09-30 15:40 | disposition home or self-care (01) ==
LOC: EC 21:00 → 6NMEDSUR 22:51
PROVIDERS: ADMIT Internal Medicine; ATTEND Internal Medicine
DX: R53.1 Weakness (principal); W18.30XA Fall on same level, unspecified, initial encounter; E72.12 Methylenetetrahydrofolate reductase deficiency; J44.9 Chronic obstructive pulmonary disease, unspecified; R03.0 Elevated blood-pressure reading, without diagnosis of hypertension; R41.82 Altered mental status, unspecified; G31.1 Senile degeneration of brain, not elsewhere classified; F02.80 Dementia in other diseases classified elsewhere, unspecified severity, without behavioral disturbance, psychotic disturbance, mood disturbance, and anxiety; Z20.822 Contact with and (suspected) exposure to COVID-19; Y92.009 Unspecified place in unspecified non-institutional (private) residence as the place of occurrence of the external cause; Z79.01 Long term (current) use of anticoagulants; Z79.82 Long term (current) use of aspirin; Z87.891 Personal history of nicotine dependence; Z87.311 Personal history of (healed) other pathological fracture
CPT/HCPCS: 99285; 36415; 93005; 97162; 80053; 80048; 83605; 83735; 84484; 85025; 85027; 85610 ×2; 85730; 81001; 87635; 72170; 71045; 70450; G0378 ×2

== ENCOUNTER 2021-11-14 04:32 | Emergency (ER) | payer MEDICARE ==
--- NOTE | 2021-11-14 05:32 | ED ---
General Adult HPI - General Source: patient, EMS Mode of arrival: EMS - History of Present Illness -: hour(s) Severity scale (1-10): 0 Consistency: constant Improves with: none Worsens with: none Associated Symptoms: other <Guanaco Augustin - Last Filed: 11/14/21 07:01> <Sean Odom - Last Filed: 11/14/21 08:59> - General Chief complaint: Fall Stated complaint: GI bleed Time Seen by Provider: 11/14/21 05:03 - History of Present Illness Initial comments: This patient is a 76-year-old man brought to have evaluation for generalized weakness, GI bleed and a ground-level fall. The patient had gone to have a bowel movement tonight. He was too weak to get back to bed. Patient's phoned EMS to have them assist her in getting him to the hospital. She noted that the bowel movement was black stool with dark red blood. shouldn't taking Coumadin for MTHFR mutation. (Guanaco Augustin) - Related Data Home Medications Medication Instructions Recorded Confirmed Aspirin EC [Ecotrin Low Dose] 81 mg PO DAILY 11/26/19 11/14/21 Folic Acid 1 mg PO HS 11/26/19 11/14/21 Warfarin [Coumadin] 2.5 mg PO DAILY 11/26/19 11/14/21 Ferrous Sulfate [Feosol] 325 mg PO MOFR 11/14/21 11/14/21 Ipratropium-Albuterol Nebulize 3 ml INHALATION RT-BID 11/14/21 11/14/21 [Duoneb 0.5 mg-3 mg/3 ml Soln] Allergies Allergy/AdvReac Type Severity Reaction Status Date / Time No Known Allergies Allergy Verified 11/14/21 07:18 Review of Systems ROS Other: All systems not noted in ROS Statement are negative. Constitutional: Reports: weakness. Denies: fever, chills Respiratory: Denies: cough, dyspnea Cardiovascular: Reports: dyspnea on exertion. Denies: chest pain, palpitations, edema, syncope Gastrointestinal: Reports: melena. Denies: abdominal pain, vomiting, diarrhea, constipation Genitourinary: Denies: dysuria, hematuria Musculoskeletal: Denies: back pain Skin: Denies: rash Neurological: Denies: headache, weakness <Guanaco Augustin - Last Filed: 11/14/21 07:01> ROS Other: All systems not noted in ROS Statement are negative. <Sean Odom - Last Filed: 11/14/21 08:59> ROS Statement: Those systems with pertinent positive or pertinent negative responses have been documented in the HPI. 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 Absent: scleral icterus, conjunctival injection ENT exam: Present: other (pallor) Neck exam: Present: normal inspection, full ROM. Absent: tenderness Respiratory exam: Present: normal lung sounds bilaterally. Absent: respiratory distress, wheezes, rales, rhonchi, stridor, chest wall tenderness Cardiovascular Exam: Present: regular rate, irregular rhythm, normal heart sounds. Absent: systolic murmur, diastolic murmur, rubs, gallop GI/Abdominal exam: Present: soft. Absent: distended, tenderness, guarding, rebound, rigid, mass, pulsatile mass Extremities exam: Present: normal capillary refill. Absent: pedal edema, calf tenderness Back exam: Present: normal inspection. Absent: CVA tenderness (R), CVA tenderness (L) Neurological exam: Present: alert, oriented X3. Absent: motor sensory deficit Skin exam: Present: warm, dry, intact, pallor. Absent: rash <Guanaco Augustin - Last Filed: 11/14/21 07:01> Course Vital Signs 11/14/21 11/14/21 11/14/21 04:33 05:31 07:00 Temperature 98.0 F Pulse Rate 67 98 98 Respiratory 18 22 18 Rate Blood Pressure 103/82 148/86 134/78 O2 Sat by Pulse 95 95 98 Oximetry 11/14/21 11/14/21 07:37 08:42 Temperature 97.8 F 98 F Pulse Rate 86 81 Respiratory 19 18 Rate Blood Pressure 136/74 120/77 O2 Sat by Pulse 95 Oximetry EKG Findings - EKG Results: EKG: normal QRS - Dysrhythmias: Supraventricular dysrhythmia: atrial fibrillation (With rate approximately 15 bpm) - Blocks, [place], Hypertrophy, ST Abn: QRS axis and voltage: right axis deviation (+90 to +180) Repolarization changes or abnormalities: ST or T wave suggestive of ischemia <Guanaco Augustin - Last Filed: 11/14/21 07:01> Medical Decision Making - Lab Data Result diagrams: 11/14/21 05:17 11/14/21 05:17 <Guanaco Augustin - Last Filed: 11/14/21 07:01> - Lab Data Result diagrams: 11/14/21 05:17 11/14/21 05:17 - Radiology Data Radiology results: report reviewed (Imaging reviewed no specific source of bleeding identified. Please see complete report patient does have evidence of grafts supply of the lower extremities), image reviewed <Sean Odom - Last Filed: 11/14/21 08:59> - Medical Decision Making The patient was endorsed me by Dr. Augustin at her shift change pending CAT scan results. Patient does have evidence of a upper GI bleed he was given vitamin K as well as FFP. No GI is available in this facility at this time the patient w ill be transferred to [facility] I did discuss case with Dr. Davis who is agreed to set the patient in transfer ER to ER. (Sean Odom) - Lab Data Lab Results 11/14/21 11/14/21 11/14/21 Range/Units 05:12 05:17 05:17 WBC 9.2 (3.8-10.6) k/uL RBC 3.25 L (4.30-5.90) m/uL Hgb 10.0 L D (13.0-17.5) gm/dL Hct 30.3 L (39.0-53.0) % MCV 93.2 (80.0-100.0) fL MCH 30.7 (25.0-35.0) pg MCHC 32.9 (31.0-37.0) g/dL RDW 13.6 (11.5-15.5) % Plt Count 162 (150-450) k/uL MPV 9.5 Neutrophils % 87 % Lymphocytes % 8 % Monocytes % 4 % Eosinophils % 1 % Basophils % 0 % Neutrophils # 8.0 H (1.3-7.7) k/uL Lymphocytes # 0.7 L (1.0-4.8) k/uL Monocytes # 0.4 (0-1.0) k/uL Eosinophils # 0.0 (0-0.7) k/uL Basophils # 0.0 (0-0.2) k/uL PT >130.0 H (9.0-12.0) sec INR >10.0 H* (<1.2) APTT 60.1 H (22.0-30.0) sec Sodium (137-145) mmol/L Potassium (3.5-5.1) mmol/L Chloride (98-107) mmol/L Carbon Dioxide (22-30) mmol/L Anion Gap mmol/L BUN (9-20) mg/dL Creatinine (0.66-1.25) mg/dL Est GFR (CKD-EPI)AfAm (>60 ml/min/1.73 sqM) Est GFR (CKD-EPI)NonAf (>60 ml/min/1.73 sqM) Glucose (74-99) mg/dL Lactic Ac Sepsis Rflx Plasma Lactic Acid Marcellus (0.7-2.0) mmol/L Calcium (8.4-10.2) mg/dL Total Bilirubin (0.2-1.3) mg/dL AST (17-59) U/L ALT (4-49) U/L Alkaline Phosphatase (38-126) U/L Troponin I (0.000-0.034) ng/mL Total Protein (6.3-8.2) g/dL Albumin (3.5-5.0) g/dL Blood Type AB Positive Blood Type Recheck AB Pos Bld Type Recheck Status No Antibody Screen NEGATIVE Spec Expiration Date 11/17/2021 - 231111/14/21 11/14/21 11/14/21 Range/Units 05:17 05:17 05:17 WBC (3.8-10.6) k/uL RBC (4.30-5.90) m/uL Hgb (13.0-17.5) gm/dL Hct (39.0-53.0) % MCV (80.0-100.0) fL MCH (25.0-35.0) pg MCHC (31.0-37.0) g/dL RDW (11.5-15.5) % Plt Count (150-450) k/uL MPV Neutrophils % % Lymphocytes % % Monocytes % % Eosinophils % % Basophils % % Neutrophils # (1.3-7.7) k/uL Lymphocytes # (1.0-4.8) k/uL Monocytes # (0-1.0) k/uL Eosinophils # (0-0.7) k/uL Basophils # (0-0.2) k/uL PT (9.0-12.0) sec INR (<1.2) APTT (22.0-30.0) sec Sodium 142 (137-145) mmol/L Potassium 3.4 L (3.5-5.1) mmol/L Chloride 108 H (98-107) mmol/L Carbon Dioxide 22 (22-30) mmol/L Anion Gap 12 mmol/L BUN 43 H (9-20) mg/dL Creatinine 1.16 (0.66-1.25) mg/dL Est GFR (CKD-EPI)AfAm 70 (>60 ml/min/1.73 sqM) Est GFR (CKD-EPI)NonAf 60 (>60 ml/min/1.73 sqM) Glucose 140 H (74-99) mg/dL Lactic Ac Sepsis Rflx Plasma Lactic Acid Marcellus 5.3 H* (0.7-2.0) mmol/L Calcium 8.9 (8.4-10.2) mg/dL Total Bilirubin 1.3 (0.2-1.3) mg/dL AST 23 (17-59) U/L ALT 13 (4-49) U/L Alkaline Phosphatase 58 (38-126) U/L Troponin I <0.012 (0.000-0.034) ng/mL Total Protein 6.0 L (6.3-8.2) g/dL Albumin 3.4 L (3.5-5.0) g/dL Blood Type Blood Type Recheck Bld Type Recheck Status Antibody Screen Spec Expiration Date 11/14/21 Range/Units 06:36 WBC (3.8-10.6) k/uL RBC (4.30-5.90) m/uL Hgb (13.0-17.5) gm/dL Hct (39.0-53.0) % MCV (80.0-100.0) fL MCH (25.0-35.0) pg MCHC (31.0-37.0) g/dL RDW (11.5-15.5) % Plt Count (150-450) k/uL MPV Neutrophils % % Lymphocytes % % Monocytes % % Eosinophils % % Basophils % % Neutrophils # (1.3-7.7) k/uL Lymphocytes # (1.0-4.8) k/uL Monocytes # (0-1.0) k/uL Eosinophils # (0-0.7) k/uL Basophils # (0-0.2) k/uL PT (9.0-12.0) sec INR (<1.2) APTT (22.0-30.0) sec Sodium (137-145) mmol/L Potassium (3.5-5.1) mmol/L Chloride (98-107) mmol/L Carbon Dioxide (22-30) mmol/L Anion Gap mmol/L BUN (9-20) mg/dL Creatinine (0.66-1.25) mg/dL Est GFR (CKD-EPI)AfAm (>60 ml/min/1.73 sqM) Est GFR (CKD-EPI)NonAf (>60 ml/min/1.73 sqM) Glucose (74-99) mg/dL Lactic Ac Sepsis Rflx Y Plasma Lactic Acid Marcellus (0.7-2.0) mmol/L Calcium (8.4-10.2) mg/dL Total Bilirubin (0.2-1.3) mg/dL AST (17-59) U/L ALT (4-49) U/L Alkaline Phosphatase (38-126) U/L Troponin I (0.000-0.034) ng/mL Total Protein (6.3-8.2) g/dL Albumin (3.5-5.0) g/dL Blood Type Blood Type Recheck Bld Type Recheck Status Antibody Screen Spec Expiration Date Disposition <Guanaco Augustin - Last Filed: 11/14/21 07:01> - Out of Hospital Transfer - Req. Specs Out of Hospital Transfer - Requested Specifics: Other Emergency Center <Sean Odom - Last Filed: 11/14/21 08:59> Clinical Impression: GI bleed, Coumadin toxicity, Weakness, Fall, History of MTHFR mutation Disposition: OTHER INSTITUTION NOT DEFINED Condition: Fair Referrals: Fabian Whatley DO [Primary Care Provider] - 1-2 days
[2021-11-14 05:39] LABS: Basophils % (A) 0 %; Eosinophils % (A) 1 %; HCT 30.3 % (39.0-53.0); Lymphocytes # (A) 0.7 k/uL (1.0-4.8); Lymphocytes % (A) 8 %; MCH 30.7 pg (25.0-35.0); MCHC 32.9 g/dL (31.0-37.0); MCV 93.2 fL (80.0-100.0); Mean Platelet Volume 9.5; Monocytes # (A) 0.4 k/uL (0-1.0); Monocytes % (A) 4 %; Neutrophils % (A) 87 %; Platelet Count 162 k/uL (150-450); RBC 3.25 m/uL (4.30-5.90); RDW 13.6 % (11.5-15.5); WBC 9.2 k/uL (3.8-10.6)
[2021-11-14 05:50] LABS: Albumin 3.4 g/dL (3.5-5.0); Calcium 8.9 mg/dL (8.4-10.2); Potassium 3.4 mmol/L (3.5-5.1); Total Bilirubin 1.3 mg/dL (0.2-1.3)
[2021-11-14 06:29] LABS: Prothrombin Time >130.0 sec (9.0-12.0)
[2021-11-14 06:31] LABS: INR >10.0 (<1.2)
[2021-11-14] MEDS ORDERED: PHYTONADIONE 5 MG in SODIUM CHLORIDE 0.9% 50 ML IVPB STA (06:31)
[2021-11-14 06:32] LABS: Partial Thromboplastin Time 60.1 sec (22.0-30.0)
[2021-11-14] MEDS ORDERED: SODIUM CHLORIDE 0.9% 1,000 ML IV ONE (06:44)
--- NOTE | 2021-11-14 07:05 | XR ---
EXAMINATION TYPE: XR chest 1V portable DATE OF EXAM: 11/14/2021 COMPARISON: Chest x-ray September 29, 2021 HISTORY: Chest pain. TECHNIQUE: Single AP portable frontal upright view of the chest is obtained. FINDINGS: There are some areas of increased opacity in the mid to lower lungs on current study. The cardiac silhouette size remains within normal limits with atherosclerotic change aortic knob. The osseous structures are demineralized. IMPRESSION: Developing bilateral mid to lower lung infiltrates and/or atelectasis thought present. C onsider progress study.
--- NOTE | 2021-11-14 07:53 | CT ---
EXAMINATION TYPE: CT angio abdomen pelvis DATE OF EXAM: 11/14/2021 COMPARISON: None. HISTORY: Hematochezia. CT DLP: 1122.9 mGycm, Automated Exposure Control for Dose Reduction was Utilized. CONTRAST: CTA scan of the abdomen and pelvis is performed without oral and without and with IV Contrast, patien t injected with 100 mL of Isovue 370. FINDINGS: Exam suboptimal as there is motion artifact. Vascular: Visualized abdominal aorta shows mild to moderate peripheral mixed plaque of the level of t he renal arteries where there is more severe noncalcified plaque and then complete occlusion just pas t the origin of the renal arteries. Completely occluded iliac artery branches in the pelvis noted. No significant stenosis in the celiac artery or SMA or the right renal artery. There appears to be sign ificant stenosis in the left renal artery at its origin. There is a right sided subcutaneous graft wh ich is patent with re- anastomosis the level of the iliac arteries in the bilateral groin LUNG BASES: There is motion artifact with peripheral multifocal ground glass opacities. LIVER/GB: Visualized liver is heterogeneously hypodense on noncontrast images consistent with diffuse fatty infiltration. PANCREAS: No significant abnormality is seen. SPLEEN: No significant abnormality is seen. ADRENALS: Slightly low dense thickening both adrenal glands favors benign lipid rich hyperplasia.. KIDNEYS: No renal stones. No concerning masses or hydronephrosis. Symmetric normal size to the bilat eral kidneys noted. BOWEL: Some sigmoid colonic diverticula. No suspicious bowel dilatation. Some motion artifact is pres ent. No mesenteric air. No suspicious delayed intraluminal enhancement. PROSTATE/SEMINAL VESICLES: No gross abnormality seen. LYMPH NODES: No greater than 1cm abdominal or pelvic lymph nodes are appreciated. OSSEOUS STRUCTURES: Surgical change to the right proximal femur causes streak artifact. OTHER: No significant additional abnormality is seen. 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 There is however paten t right-sided subcutaneous graft with anastomosis in the bilateral groin region. Source of hematochez ia not clearly identified. No free air or mesenteric air identified.
[2021-11-14 08:44] VITALS: RESP 18
[2021-11-14 09:33] VITALS: TEMP 98.1
[2021-11-14 09:41] VITALS: BP 142/64; PULSE 71
== END 2021-11-14 09:56 | disposition other institution (70) ==
LOC: EC 04:32
DX: K92.2 Gastrointestinal hemorrhage, unspecified (principal); J45.909 Unspecified asthma, uncomplicated; Z87.891 Personal history of nicotine dependence; T65.91XA Toxic effect of unspecified substance, accidental (unintentional), initial encounter; W19.XXXA Unspecified fall, initial encounter
CPT/HCPCS: 36415; 86900; 86901; 80053; 83605; 84484; 85025; 85610; 85730; 86850; 71045; 74174; 99285; 96365; P9059; J3430; Q9967; 93005

== ENCOUNTER 2021-11-30 10:37 | Emergency (ER) | payer MEDICARE ==
--- NOTE | 2021-11-30 13:27 | ED ---
General Adult HPI - General Chief complaint: Weakness Stated complaint: Lack of appetite, Congestion Time Seen by Provider: 11/30/21 12:30 Source: patient, family, RN notes reviewed, old records reviewed Mode of arrival: ambulatory Limitations: no limitations - History of Present Illness Initial comments: This is a 76-year-old male presents emergency Department complaining of weakness. Patient states it started about 6 days ago. Patient states ever since then he's been unable to eat anytime he eats he feels like he can throw up though he does not vomit. Patient states this is limited his intake of fluids and he has not had anything to eat 60s. Patient denies any fever chills or cough. Patient denies any chest pain difficult breathing shortness of breath. Patient denies any abdominal pain. Patient denies any diarrhea. Patient denies any back pain. Patient denies any recent injury. Patient denies any medication changes. - Related Data Home Medications Medication Instructions Recorded Confirmed Folic Acid 1 mg PO HS 11/26/19 11/30/21 Clopidogrel Bisulfate [Plavix] 75 mg PO HS 11/30/21 11/30/21 Pantoprazole Sodium 40 mg PO BID 11/30/21 11/30/21 Potassium Chloride [Klor-Con M10] 10 meq PO DAILY 11/30/21 11/30/21 Previous Rx's Medication Instructions Recorded Azithromycin [Zithromax Tri-Fortino] 500 mg PO DAILY #3 tab 11/30/21 Allergies Allergy/AdvReac Type Severity Reaction Status Date / Time No Known Allergies Allergy Verified 11/30/21 14:48 Review of Systems ROS Statement: Those systems with pertinent positive or pertinent negative responses have been documented in the HPI. ROS Other: All systems not noted in ROS Statement are negative. 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, COPD, methylenetetrahydrofolate reductase (blood clotting disorder) History of Any Multi-Drug Resistant Organisms: None Reported Past Surgical History: Unable to Obtain Additional Past Surgical History / Comment(s): right hip fx, Past Anesthesia/Blood Transfusion Reactions: No Reported Reaction Past Psychological History: No Psychological Hx Reported Smoking Status: Former smoker Past Alcohol Use History: Occasional Past Drug Use History: None Reported General Exam - General Exam Comments Initial Comments: GENERAL: Patient is well-developed and well-nourished. Patient is nontoxic and well- hydrated and is in no acute distress. ENT: Neck is soft and supple. No significant lymphadenopathy is noted. Oropharynx is clear. Dry mucous membranes. Neck has full range of motion without eliciting any pain. EYES: The sclera were anicteric and conjunctiva were pink and moist. Extraocular movements were intact and pupils were equal round and reactive to light. E yelids were unremarkable. PULMONARY: Unlabored respirations. Good breath sounds bilaterally. No audible rales rhonchi or wheezing was noted. CARDIOVASCULAR: There is a regular rate and rhythm without any murmurs gallops or rubs. ABDOMEN: Soft and nontender with normal bowel sounds. SKIN: Skin is clear with no lesions or rashes and otherwise unremarkable. NEUROLOGIC: Patient is alert and oriented x3. Cranial nerves II through XII are grossly intact. Motor and sensory are also intact. Normal speech, volume and content. Symmetrical smile. MUSCULOSKELETAL: Normal extremities with adequate strength and full range of motion. LYMPHATICS: No significant lymphadenopathy is noted PSYCHIATRIC: Normal psychiatric evaluation. Limitations: no limitations Course Vital Signs 11/30/21 11/30/21 11:12 13:45 Temperature 98 F 96.8 F L Pulse Rate 78 60 Respiratory 20 16 Rate Blood Pressure 124/73 153/72 O2 Sat by Pulse 97 Oximetry Medical Decision Making - Medical Decision Making EKG shows sinus rhythm at 66 bpm ND interval 114 QRS is 89 QT is 422 QTC is 435 per patient's EKG shows no ST segment elevation or depression. Chest x-ray shows a questionable infiltrate in the left lower lobe patient has some cough and because of his COPD I will start him on antibiotics. Patient is comfortable going home is comfortable taking him home. - Lab Data Result diagrams: 11/30/21 14:05 11/30/21 14:05 Lab Results 11/30/21 11/30/21 11/30/21 Range/Units 14:04 14:05 14:05 WBC 6.4 (3.8-10.6) k/uL RBC 3.69 L (4.30-5.90) m/uL Hgb 11.3 L (13.0-17.5) gm/dL Hct 36.2 L (39.0-53.0) % MCV 98.0 (80.0-100.0) fL MCH 30.6 (25.0-35.0) pg MCHC 31.3 (31.0-37.0) g/dL RDW 15.2 (11.5-15.5) % Plt Count 215 (150-450) k/uL MPV 7.8 Neutrophils % 80 % Lymphocytes % 13 % Monocytes % 4 % Eosinophils % 2 % Basophils % 0 % Neutrophils # 5.1 (1.3-7.7) k/uL Lymphocytes # 0.9 L (1.0-4.8) k/uL Monocytes # 0.2 (0-1.0) k/uL Eosinophils # 0.1 (0-0.7) k/uL Basophils # 0.0 (0-0.2) k/uL Hypochromasia Moderate Macrocytosis Slight Sodium 147 H (137-145) mmol/L Potassium 3.7 (3.5-5.1) mmol/L Chloride 109 H (98-107) mmol/L Carbon Dioxide 24 (22-30) mmol/L Anion Gap 14 mmol/L BUN 20 (9-20) mg/dL Creatinine 0.81 (0.66-1.25) mg/dL Est GFR (CKD-EPI)AfAm >90 (>60 ml/min/1.73 sqM) Est GFR (CKD-EPI)NonAf 85 (>60 ml/min/1.73 sqM) Glucose 80 (74-99) mg/dL Plasma Lactic Acid Marcell[place] (0.7-2.0) mmol/L Calcium 9.1 (8.4-10.2) mg/dL Total Bilirubin 1.3 (0.2-1.3) mg/dL AST 22 (17-59) U/L ALT 11 (4-49) U/L Alkaline Phosphatase 62 (38-126) U/L Troponin I (0.000-0.034) ng/mL Total Protein 6.4 (6.3-8.2) g/dL Albumin 3.5 (3.5-5.0) g/dL Urine Color Yellow Urine Appearance Clear (Clear) Urine pH 5.5 (5.0-8.0) Ur Specific [place] 1.029 (1.001-1.035) Urine Protein 1+ H (Negative) Urine Glucose (UA) Negative (Negative) Urine Ketones 2+ H (Negative) Urine Blood Negative (Negative) Urine Nitrite Negative (Negative) Urine Bilirubin 1+ H (Negative) Urine Urobilinogen 2.0 (<2.0) mg/dL Ur Leukocyte Esterase Negative (Negative) Urine RBC <1 (0-5) /hpf Urine WBC 5 (0-5) /hpf Ur Squamous Epith Cells 1 (0-4) /hpf Urine Mucus Rare H (None) /hpf Coronavirus (PCR) (Not Detectd) 11/30/21 11/30/21 11/30/21 Range/Units 14:05 14:05 14:05 WBC (3.8-10.6) k/uL RBC (4.30-5.90) m/uL Hgb (13.0-17.5) gm/dL Hct (39.0-53.0) % MCV (80.0-100.0) fL MCH (25.0-35.0) pg MCHC (31.0-37.0) g/dL RDW (11.5-15.5) % Plt Count (150-450) k/uL MPV Neutrophils % % Lymphocytes % % Monocytes % % Eosinophils % % Basophils % % Neutrophils # (1.3-7.7) k/uL Lymphocytes # (1.0-4.8) k/uL Monocytes # (0-1.0) k/uL Eosinophils # (0-0.7) k/uL Basophils # (0-0.2) k/uL Hypochromasia Macrocytosis Sodium (137-145) mmol/L Potassium (3.5-5.1) mmol/L Chloride (98-107) mmol/L Carbon Dioxide (22-30) mmol/L Anion Gap mmol/L BUN (9-20) mg/dL Creatinine (0.66-1.25) mg/dL Est GFR (CKD-EPI)AfAm (>60 ml/min/1.73 sqM) Est GFR (CKD-EPI)NonAf (>60 ml/min/1.73 sqM) Glucose (74-99) mg/dL Plasma Lactic Acid [place] 1.5 (0.7-2.0) mmol/L Calcium (8.4-10.2) mg/dL Total Bilirubin (0.2-1.3) mg/dL AST (17-59) U/L ALT (4-49) U/L Alkaline Phosphatase (38-126) U/L Troponin I <0.012 (0.000-0.034) ng/mL Total Protein (6.3-8.2) g/dL Albumin (3.5-5.0) g/dL Urine Color Urine Appearance (Clear) Urine pH (5.0-8.0) Ur Specific [place] (1.001-1.035) Urine Protein (Negative) Urine Glucose (UA) (Negative) Urine Ketones (Negative) Urine Blood (Negative) Urine Nitrite (Negative) Urine Bilirubin (Negative) Urine Urobilinogen (<2.0) mg/dL Ur Leukocyte Esterase (Negative) Urine RBC (0-5) /hpf Urine WBC (0-5) /hpf Ur Squamous Epith Cells (0-4) /hpf Urine Mucus (None) /hpf Coronavirus (PCR) Not Detected (Not Detectd) Disposition Clinical Impression: Dehydration, Weakness, Pneumonia, Decreased appetite Disposition: HOME SELF-CARE Condition: Good Instructions (If sedation given, give patient instructions): Bacterial Pneumonia (ED), Weakness (ED) Additional Instructions: Patient needs to increase by mouth intake of both fluids and food Prescriptions: Azithromycin [Zithromax Tri-Fortino] 500 mg PO DAILY #3 tab Is patient prescribed a controlled substance at d/c from ED?: No Referrals: Fabian Whatley DO [Primary Care Provider] - 1-2 days Time of Disposition: 15:49
[2021-11-30 13:47] VITALS: TEMP 96.8
[2021-11-30 14:12] LABS: Basophils % (A) 0 %; Eosinophils # (A) 0.1 k/uL (0-0.7); Eosinophils % (A) 2 %; HCT 36.2 % (39.0-53.0); HGB 11.3 gm/dL (13.0-17.5); Hypochromasia Moderate; Lymphocytes # (A) 0.9 k/uL (1.0-4.8); Lymphocytes % (A) 13 %; MCH 30.6 pg (25.0-35.0); MCHC 31.3 g/dL (31.0-37.0); Macrocytosis Slight; Mean Platelet Volume 7.8; Monocytes # (A) 0.2 k/uL (0-1.0); Monocytes % (A) 4 %; Neutrophils # (A) 5.1 k/uL (1.3-7.7); Neutrophils % (A) 80 %; Platelet Count 215 k/uL (150-450); RBC 3.69 m/uL (4.30-5.90); RDW 15.2 % (11.5-15.5); WBC 6.4 k/uL (3.8-10.6)
[2021-11-30 14:25] LABS: Appearance,Urine Clear (Clear); Bilirubin,Urine 1+ (Negative); Blood,Urine Negative (Negative); Color,Urine Yellow; Glucose,Urine (UA) Negative (Negative); Ketones,Urine 2+ (Negative); Leukocyte Esterase,Urine Negative (Negative); Mucus,Urine Rare /hpf; Nitrite,Urine Negative (Negative); PH, Urine 5.5 (5.0-8.0); Protein,Urine 1+ (Negative); RBC,Urine <1 /hpf (0-5); Specific Gravity,Urine 1.029 (1.001-1.035); Squamous Epithelial Cell,Urine 1 /hpf (0-4); WBC,Urine 5 /hpf (0-5)
[2021-11-30 14:33] LABS: ALT 11 U/L (4-49); AST 22 U/L (17-59); African American GFR (CKD) >90 (>60 ml/min/1.73 sqM); Albumin 3.5 g/dL (3.5-5.0); Alkaline Phosphatase 62 U/L (38-126); Anion Gap 14 mmol/L; Blood Urea Nitrogen 20 mg/dL (9-20); Calcium 9.1 mg/dL (8.4-10.2); Carbon Dioxide 24 mmol/L (22-30); Chloride 109 mmol/L (98-107); Glucose 80 mg/dL (74-99); Non-African American GFR(CKD) 85 (>60 ml/min/1.73 sqM); Potassium 3.7 mmol/L (3.5-5.1); Sodium 147 mmol/L (137-145); Total Bilirubin 1.3 mg/dL (0.2-1.3); Total Protein 6.4 g/dL (6.3-8.2)
--- NOTE | 2021-11-30 15:34 | XR ---
EXAMINATION TYPE: XR chest 2V DATE OF EXAM: 11/30/2021 COMPARISON: 11/14/2021 INDICATION: Weakness TECHNIQUE: Frontal and lateral views of the chest are obtained. FINDINGS: The heart size is normal. The pulmonary vasculature is normal. Left lower lobe infiltrate is present. Correlate for pneumonia hyperinflation is present compatible w ith COPD. IMPRESSION: 1. Left lower lobe infiltrate. Correlate for pneumonia. 2. COPD 3. Follow-up is recommended
[2021-11-30] MEDS ORDERED: cefTRIAXone IN SWFI 1,000 MG/10 ML SYRINGE IVP STA (15:50)
[2021-11-30 16:55] VITALS: BP 144/82; PULSE 56; RESP 20
== END 2021-11-30 16:55 | disposition home or self-care (01) ==
LOC: EC 10:37
DX: J18.9 Pneumonia, unspecified organism (principal); E86.0 Dehydration; J45.909 Unspecified asthma, uncomplicated; Z87.891 Personal history of nicotine dependence; Z20.822 Contact with and (suspected) exposure to COVID-19
CPT/HCPCS: 36415; 93005; 80053; 83605; 84484; 85025; 81001; 87635; 71046; 99285; 96374; J0696

== ENCOUNTER 2021-12-04 10:08 | Inpatient (IN) | payer MEDICARE ==
[2021-12-04] MEDS ORDERED: SODIUM CHLORIDE 0.9% 500 ML 500 ML IV STA ×2 (11:36→13:28)
--- NOTE | 2021-12-04 12:11 | ED ---
General Adult HPI - General Source: patient Mode of arrival: wheelchair Limitations: no limitations <Libra Chairez - Last Filed: 12/04/21 15:17> <Jemima Terrell - Last Filed: 12/06/21 23:44> - General Chief complaint: Neuro Symptoms/Deficit Stated complaint: Revisit/Weakness Time Seen by Provider: 12/04/21 11:07 - History of Present Illness Initial comments: This 76-year-old male since emergency department for revisit and was seen here in Tuesday for progressive dysphagia. Patient appears emaciated, deconditioned and in no acute distress. in room states patient has not eaten for 9 days due to having trouble swallowing solids and liquids. in room states patient has been able to have small sips of water, however when trying to feed him noodles from chicken noodle soup he feels like they get stuck and can't go down and coughs them up. states whenever he tries to swallow anything he begins to gag. states patient has been having normal bowel and bladder movements and is able to get up and walk at home with his walker as usual, however he is slowly improving then usual due to being week. Patient states "I just want to ." Patient denies any chest pain, shortness of breath, trouble breathing. He does state that he has trouble swallowing and feels like his throat was "tight when trying to swallow solids or liquids." Patient denies having trouble swallowing his spit. Patient denies any abdominal pain, nausea, vomiting, diarrhea, constipation, headache, change in vision, one-sided weakness, lightheadedness, dizziness. (Libra Chairez) - Related Data Home Medications Medication Instructions Recorded Confirmed Folic Acid 1 mg PO HS 11/26/19 12/04/21 Clopidogrel Bisulfate [Plavix] 75 mg PO HS 11/30/21 12/04/21 Pantoprazole Sodium 40 mg PO BID 11/30/21 12/04/21 Potassium Chloride [Klor-Con M10] 10 meq PO DAILY 11/30/21 12/04/21 Allergies Allergy/AdvReac Type Severity Reaction Status Date / Time No Known Allergies Allergy Verified 12/04/21 13:28 Review of Systems ROS Other: All systems not noted in ROS Statement are negative. <Libra Chairez - Last Filed: 12/04/21 15:17> ROS Other: All systems not noted in ROS Statement are negative. <Jemima Terrell - Last Filed: 12/06/21 23:44> ROS Statement: Those systems with pertinent positive or pertinent negative responses have been documented in the HPI. 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, COPD, methylenetetrahydrofolate reductase (blood clotting disorder) History of Any Multi-Drug Resistant Organisms: None Reported Past Surgical History: Unable to Obtain Additional Past Surgical History / Comment(s): right hip fx, Past Anesthesia/Blood Transfusion Reactions: No Reported Reaction Past Psychological History: No Psychological Hx Reported Smoking Status: Former smoker Past Alcohol Use History: Occasional Past Drug Use History: None Reported <Libra Chairez - Last Filed: 12/04/21 15:17> General Exam Limitations: no limitations General appearance: alert, other (Patient breathing heavy, in room states this is his baseline due to him having COPD. Emaciated, deconditioned appearing 76-year-old male in no acute distress) Head exam: Present: atraumatic, normocephalic Eye exam: Present: PERRL, EOMI Pupils: Present: normal accommodation ENT exam: Present: mucous membranes dry Neck exam: Present: normal inspection, full ROM. Absent: tenderness, meningismus, lymphadenopathy, thyromegaly Respiratory exam: Present: normal lung sounds bilaterally. Absent: respiratory distress, wheezes, rales, rhonchi, stridor Cardiovascular Exam: Present: regular rate, normal rhythm, normal heart sounds. Absent: systolic murmur, diastolic murmur, rubs, gallop, clicks GI/Abdominal exam: Present: soft, normal bowel sounds. Absent: distended, tenderness, guarding, rebound, rigid Extremities exam: Present: full ROM, normal capillary refill. Absent: pedal edema, joint swelling, calf tenderness Back exam: Present: normal inspection, full ROM. Absent: tenderness, CVA tenderness (R), CVA tenderness (L), paraspinal tenderness, vertebral tenderness Neurological exam: Present: alert, oriented X3, CN II-XII intact, other (Patient is neurologically intact without any 1 sided weakness- besides his dysphasia) Psychiatric exam: Present: normal affect, normal mood Skin exam: Present: warm, dry, intact, normal color. Absent: rash <Libra Chairez - Last Filed: 12/04/21 15:17> Course Vital Signs 12/04/21 12/04/21 12/04/21 10:10 14:08 16:53 Temperature 97.8 F 97.7 F Pulse Rate 73 78 68 Respiratory 18 24 18 Rate Blood Pressure 134/88 154/79 O2 Sat by Pulse 98 99 Oximetry 12/04/21 12/04/21 17:01 17:08 Temperature 98.2 F Pulse Rate 71 73 Respiratory 18 22 Rate Blood Pressure 114/77 O2 Sat by Pulse 100 Oximetry EKG Findings - EKG Comments: EKG Findings:: EKG limited with baseline artifact. Ventricular rate 85 bpm. IA interval 136. Stress duration 82. QT/QTc 381/423. P-R-T axes 88 78 78 <Libra Chairez - Last Filed: 12/04/21 15:17> Medical Decision Making - Lab Data Result diagrams: 12/04/21 11:51 12/04/21 11:51 <Libra Chairez - Last Filed: 12/04/21 15:17> - Lab Data Result diagrams: 12/06/21 06:25 12/06/21 22:45 <Jemima Terrell - Last Filed: 12/06/21 23:44> - Medical Decision Making This 76-year-old male presents emergency Department with progressive dysphagia over the last 9 days. Labs did reveal dehydration, patient given fluids. Neck and chest CT impression with degenerative disc disease, oropharynx is air filled and somewhat prominent appearance. Coronary artery disease, correlate for pneumoniaconsider aspiration. Brain CT with age-related atrophic and chronic small vessel ischemic change without acute intracranial process seen. Chest x- ray with improving aeration of left lower lobe compared to prior. I did speak with Dr. Munson from GI who agreed to come assess patient here in the emergency department and after evaluation agreed to scope patient tomorrow morning. I spoke with Dr. arroyo who agreed to accept patient to his services. Patient given dose of Zosyn here in the emergency department for possible aspiration pneumonia. Patient and verbally agreed with plan of admission for further workup and treatment. Discussed case with my attending, Dr. Terrell. (Libra Chairez) I was available for consultation in the emergency department. The history and physical exam were done by the midlevel provider. I was consulted for this patients care. I reviewed the case with the midlevel provider and based on their presentation of the patient, I agree with the assessment, medical decision making and plan of care as documented. Chart was dictated using ralali dictation software. Attempts were made to correct any dictation errors however some typographical errors may persist. Patient was seen during a national state of emergency due to the Covid-19 pandemic. (Jemima Terrell) - Lab Data Lab Results 12/04/21 12/04/21 12/04/21 Range/Units 11:51 11:51 11:51 WBC 6.0 (3.8-10.6) k/uL RBC 4.00 L (4.30-5.90) m/uL Hgb 12.6 L (13.0-17.5) gm/dL Hct 39.3 (39.0-53.0) % MCV 98.3 (80.0-100.0) fL MCH 31.4 (25.0-35.0) pg MCHC 32.0 (31.0-37.0) g/dL RDW 14.8 (11.5-15.5) % Plt Count 216 (150-450) k/uL MPV 8.3 Neutrophils % 78 % Lymphocytes % 16 % Monocytes % 3 % Eosinophils % 3 % Basophils % 0 % Neutrophils # 4.7 (1.3-7.7) k/uL Lymphocytes # 1.0 (1.0-4.8) k/uL Monocytes # 0.2 (0-1.0) k/uL Eosinophils # 0.2 (0-0.7) k/uL Basophils # 0.0 (0-0.2) k/uL Hypochromasia Moderate PT 15.9 H (9.0-12.0) sec INR 1.5 H (<1.2) APTT 22.1 (22.0-30.0) sec Sodium (137-145) mmol/L Potassium (3.5-5.1) mmol/L Chloride (98-107) mmol/L Carbon Dioxide (22-30) mmol/L Anion Gap mmol/L BUN (9-20) mg/dL Creatinine (0.66-1.25) mg/dL Est GFR (CKD-EPI)AfAm (>60 ml/min/1.73 sqM) Est GFR (CKD-EPI)NonAf (>60 ml/min/1.73 sqM) Glucose (74-99) mg/dL Plasma Lactic Acid [place] (0.7-2.0) mmol/L Calcium (8.4-10.2) mg/dL Magnesium (1.6-2.3) mg/dL Total Bilirubin (0.2-1.3) mg/dL AST (17-59) U/L ALT (4-49) U/L Alkaline Phosphatase (38-126) U/L Troponin I (0.000-0.034) ng/mL Total Protein (6.3-8.2) g/dL Albumin (3.5-5.0) g/dL Urine Color Yellow Urine Appearance Cloudy (Clear) Urine pH 5.5 (5.0-8.0) Ur Specific [place] 1.030 (1.001-1.035) Urine Protein 1+ H (Negative) Urine Glucose (UA) Negative (Negative) Urine Ketones 3+ H (Negative) Urine Blood Negative (Negative) Urine Nitrite Negative (Negative) Urine Bilirubin 1+ H (Negative) Urine Urobilinogen 2.0 (<2.0) mg/dL Ur Leukocyte Esterase Trace H (Negative) Urine RBC 1 (0-5) /hpf Urine WBC 7 H (0-5) /hpf Ur Squamous Epith Cells 4 (0-4) /hpf Urine Mucus Rare H (None) /hpf 12/04/21 12/04/21 12/04/21 Range/Units 11:51 11:51 11:51 WBC (3.8-10.6) k/uL RBC (4.30-5.90) m/uL Hgb (13.0-17.5) gm/dL Hct (39.0-53.0) % MCV (80.0-100.0) fL MCH (25.0-35.0) pg MCHC (31.0-37.0) g/dL RDW (11.5-15.5) % Plt Count (150-450) k/uL MPV Neutrophils % % Lymphocytes % % Monocytes % % Eosinophils % % Basophils % % Neutrophils # (1.3-7.7) k/uL Lymphocytes # (1.0-4.8) k/uL Monocytes # (0-1.0) k/uL Eosinophils # (0-0.7) k/uL Basophils # (0-0.2) k/uL Hypochromasia PT (9.0-12.0) sec INR (<1.2) APTT (22.0-30.0) sec Sodium 153 H (137-145) mmol/L Potassium 4.1 (3.5-5.1) mmol/L Chloride 117 H (98-107) mmol/L Carbon Dioxide 21 L (22-30) mmol/L Anion Gap 15 mmol/L BUN 30 H (9-20) mg/dL Creatinine 0.86 (0.66-1.25) mg/dL Est GFR (CKD-EPI)AfAm >90 (>60 ml/min/1.73 sqM) Est GFR (CKD-EPI)NonAf 83 (>60 ml/min/1.73 sqM) Glucose 84 (74-99) mg/dL Plasma Lactic Acid [place] 2.0 (0.7-2.0) mmol/L Calcium 9.9 (8.4-10.2) mg/dL Magnesium 2.4 H (1.6-2.3) mg/dL Total Bilirubin 1.3 (0.2-1.3) mg/dL AST 31 (17-59) U/L ALT 18 (4-49) U/L Alkaline Phosphatase 55 (38-126) U/L Troponin I <0.012 (0.000-0.034) ng/mL Total Protein 7.1 (6.3-8.2) g/dL Albumin 3.9 (3.5-5.0) g/dL Urine Color Urine Appearance (Clear) Urine pH (5.0-8.0) Ur Specific [place] (1.001-1.035) Urine Protein (Negative) Urine Glucose (UA) (Negative) Urine Ketones (Negative) Urine Blood (Negative) Urine Nitrite (Negative) Urine Bilirubin (Negative) Urine Urobilinogen (<2.0) mg/dL Ur Leukocyte Esterase (Negative) Urine RBC (0-5) /hpf Urine WBC (0-5) /hpf Ur Squamous Epith Cells (0-4) /hpf Urine Mucus (None) /hpf Disposition Time of Disposition: 15:08 <Libra Chairez - Last Filed: 12/04/21 15:17> <Jemiam Terrell - Last Filed: 12/06/21 23:44> Clinical Impression: Dehydration, Aspiration pneumonia, Progressive dysphasia not due to Alzheimer's disease Disposition: ADMITTED IP TO THIS HOSP Condition: Serious
[2021-12-04 12:30] LABS: Basophils % (A) 0 %; Eosinophils # (A) 0.2 k/uL (0-0.7); Eosinophils % (A) 3 %; HCT 39.3 % (39.0-53.0); HGB 12.6 gm/dL (13.0-17.5); Hypochromasia Moderate; Lymphocytes % (A) 16 %; MCH 31.4 pg (25.0-35.0); MCV 98.3 fL (80.0-100.0); Mean Platelet Volume 8.3; Monocytes # (A) 0.2 k/uL (0-1.0); Monocytes % (A) 3 %; Neutrophils # (A) 4.7 k/uL (1.3-7.7); Neutrophils % (A) 78 %; Platelet Count 216 k/uL (150-450); RDW 14.8 % (11.5-15.5)
[2021-12-04 12:39] LABS: INR 1.5 (<1.2); Partial Thromboplastin Time 22.1 sec (22.0-30.0); Prothrombin Time 15.9 sec (9.0-12.0)
[2021-12-04 12:59] LABS: ALT 18 U/L (4-49); African American GFR (CKD) >90 (>60 ml/min/1.73 sqM); Albumin 3.9 g/dL (3.5-5.0); Anion Gap 15 mmol/L; Blood Urea Nitrogen 30 mg/dL (9-20); Calcium 9.9 mg/dL (8.4-10.2); Carbon Dioxide 21 mmol/L (22-30); Chloride 117 mmol/L (98-107); Glucose 84 mg/dL (74-99); Non-African American GFR(CKD) 83 (>60 ml/min/1.73 sqM); Sodium 153 mmol/L (137-145); Total Bilirubin 1.3 mg/dL (0.2-1.3); Total Protein 7.1 g/dL (6.3-8.2)
[2021-12-04 13:01] LABS: AST 31 U/L (17-59); Alkaline Phosphatase 55 U/L (38-126); Magnesium 2.4 mg/dL (1.6-2.3); Potassium 4.1 mmol/L (3.5-5.1)
[2021-12-04 13:12] LABS: Appearance,Urine Cloudy (Clear); Bilirubin,Urine 1+ (Negative); Blood,Urine Negative (Negative); Color,Urine Yellow; Glucose,Urine (UA) Negative (Negative); Ketones,Urine 3+ (Negative); Leukocyte Esterase,Urine Trace (Negative); Mucus,Urine Rare /hpf; Nitrite,Urine Negative (Negative); PH, Urine 5.5 (5.0-8.0); Protein,Urine 1+ (Negative); RBC,Urine 1 /hpf (0-5); Squamous Epithelial Cell,Urine 4 /hpf (0-4); WBC,Urine 7 /hpf (0-5)
--- NOTE | 2021-12-04 13:17 | CT ---
EXAMINATION TYPE: CT brain wo con DATE OF EXAM: 12/04/2021 COMPARISON: 09/29/2021 HISTORY: dysphagia CT DLP: [address] of the brain was performed. The ventricles, basal cisterns and sulci overlying the cerebral convexities demonstrate mild enlargem ent. There is no evidence for intracranial hemorrhage or sulcal effacement. There is decreased attenuation about the periventricular white matter and deep white matter of both c erebral hemispheres, compatible with chronic small vessel ischemia. Differential diagnosis does inclu de demyelination. No mass effects are seen.No midline shift. Osseous calvarium is intact. If symptoms persist consider MRI. IMPRESSION: 1. Age related atrophic and chronic small vessel ischemic change without acute intracranial process s een at this time.
--- NOTE | 2021-12-04 13:19 | XR ---
EXAMINATION TYPE: XR chest 2V DATE OF EXAM: 12/04/2021 COMPARISON: 11/30/2021 HISTORY: Shortness of breath TECHNIQUE: Frontal and lateral views of the chest are obtained. FINDINGS: Scattered senescent parenchymal changes noted. Hyperinflation compatible with COPD. Improving aeration left lower lobe. No evidence for atelectasis. Heart size is stable. Mediastinal structures are stable and grossly unremarkable. No evidence for hilar prominence. Degenerative changes dorsal spine. IMPRESSION: 1. Improving aeration left lower lobe.
--- NOTE | 2021-12-04 13:44 | CT ---
EXAMINATION TYPE: CT neck chest w con DATE OF EXAM: 12/04/2021 1:05 PM COMPARISON: Chest x-ray and brain CT same date, CT 11/14/2021 HISTORY: dysphagia CT DLP: 409.4 mGycm Automated exposure control for dose reduction was used. CONTRAST: CT scan of the neck and chest is performed following with IV Contrast, patient injected with 100 mL o f Isovue 300. Axial images are obtained, coronal and sagittal reformatted images are reviewed. FINDINGS: NECK CT: Airway: No gross abnormality seen. Parotid/submandibular glands: No gross abnormality seen. Carotid/Vascular Structures: Atheromatous changes are present within the aorta, coronary arteries and carotid arteries without significant stenosis by NASCET criteria. 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 Vertebral arteries are patent, innominate artery, le ft and right subclavian, left and right common carotid arteries, internal and external carotid arteri es are patent. Vertebral arteries are codominant. Osseous Structures: Skull base is within normal limits. Degenerative disc changes are present in the visualized spine, is multilevel facet arthropathy, foraminal encroachment. Disc herniation is present at C5-6 posteriorly Other: Esophagus as visualized is within normal limits. Oropharynx appears air-filled, some high dens ity is present along the tongue which may represent calcification but is indeterminate IMPRESSION: Patent bypass graft. Degenerative disc disease. Oropharynx is air-filled and somewhat pr ominent appearance CHEST CT: There is no endobronchial lesion, probable change secretions present at the level of the ca nash and left mainstem bronchus. Some patchy densities present at the left lung base and right, no pl eural or pericardial effusion. Centrilobular emphysematous changes are present within the lungs. No m ediastinal, axillary, or hilar adenopathy. No evident esophageal abnormality. impression: Emphysema. Coronary artery disease, correlate for pneumonia, consider aspiration.
[2021-12-04] MEDS ORDERED: ONDANSETRON 4 MG/2 ML VIAL IVP PRN (15:12)
[2021-12-04] MEDS ORDERED: NALOXONE 0.4 MG/ML 1 ML VIAL IV PRN (15:12)
[2021-12-04] MEDS ORDERED: SODIUM CHLORIDE 0.9% 1,000 ML IV SCH (15:15)
[2021-12-04] MEDS ORDERED: PIPERACILLIN-TAZOBACTAM 3.375 GM in SODIUM CHLORIDE 0.9% 100 ML IVPB STA (15:16)
--- NOTE | 2021-12-04 15:32 | P.CONS ---
History of Present Illness - Reason for Consult Consult date: 12/04/21 Dysphagia Requesting physician: Libra Chairez - Chief Complaint Difficulty swallowing - History of Present Illness This is a-year-old white male who presented to the emergency department with complaints of difficulty swallowing. Patient states he's been unable to swallow for the last 9 days. He is not a been able to eat. Now is having difficulty with swallowing water and will regurgitate that up. Takes time to get some pills down but he has been able to swallow pills down. He denies any pain in his throat only states that it is dry. No history of GERD or pain with swallowing. He's had some recent weight loss according to his . He was recently seen in the beginning of October. In the emergency room on 11/14/2021 and transferred to [facility] for GI bleed. His states that he had a upper endoscopy done with findings of 2 ulcers. He has been on Protonix. He also has a history of a previous GI bleed and had an EGD and colonoscopy by Dr. Munson in December 2019. Upper endoscopy revealed mild antral gastritis and duodenitis. Colonoscopy revealed occult cecal and rectal polyp status post polypectomy. Scattered sigmoid diverticulosis. Patient had recently been on Coumadin and during the time of admission in early October he had Coumadin toxicity with an INR greater than 10. Since then, Coumadin has been discontinued and he is on Plavix. He had a CT of the neck and chest with contrast showed esophagus within normal limits oropharynx appears air-filled some high density is present along the tongue which may represent calcification but is indeterminate. Review of Systems REVIEW OF SYSTEMS: CARDIOPULMONARY: No chest pain or shortness of breath. Gastrointestinal: Abdominal pain. No epigastric pain no pain with swallowing, patient is having difficulty swallowing solids and liquids.. No nausea or vomiting. No hematemesis, coffee-ground emesis. No rectal bleeding, or melena. GENITOURINARY: No dysuria or hematuria. MUSCULOSKELETAL: Reports normal range of motion., Joint pain. SKIN: No rashes. No jaundice. ENDOCRINE: No chills, fevers. No excessive weight gain or loss. No polydipsia or polyuria. PSYCHIATRIC: Unremarkable. NEUROLOGY: No change in mental status. Denies dizziness, headache. ENT: Vision unremarkable. CONSTITUTIONAL: White believes recent weight loss however unsure how much. No fever, chills, night sweats. 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, COPD, methylenetetrahydrofolate reductase (blood clotting disorder) History of Any Multi-Drug Resistant Organisms: None Reported Past Surgical History: Unable to Obtain Additional Past Surgical History / Comment(s): right hip fx, Past Anesthesia/Blood Transfusion Reactions: No Reported Reaction Past Psychological History: No Psychological Hx Reported Smoking Status: Former smoker Past Alcohol Use History: Occasional Past Drug Use History: None Reported Medications and Allergies Home Medications Medication Instructions Recorded Confirmed Type Folic Acid 1 mg PO HS 11/26/19 12/04/21 History Clopidogrel Bisulfate [Plavix] 75 mg PO HS 11/30/21 12/04/21 History Pantoprazole Sodium 40 mg PO BID 11/30/21 12/04/21 History Potassium Chloride [Klor-Con M10] 10 meq PO DAILY 11/30/21 12/04/21 History Allergies Allergy/AdvReac Type Severity Reaction Status Date / Time No Known Allergies Allergy Verified 12/04/21 13:28 Physical Exam Vitals: Vital Signs Temp Pulse Resp BP Pulse Ox 12/04/21 14:08 97.7 F 78 24 154/79 99 12/04/21 10:10 97.8 F 73 18 134/88 98 Intake and Output 12/03/21 12/04/21 12/04/21 22:59 06:59 14:59 Other: Weight 63.503 kg General appearance: The patient is alert, oriented, appears in no acute distress. HET: Head is normocephalic and atraumatic. Conjunctiva pink. Sclera anicteric. Neck: Supple without lymphadenopathy. Abdomen: Soft, thin, nontender, nondistended with bowel sounds. No guarding or rigidity. Extremities: Normal skin color and turgor. No pedal edema Skin: No rashes, no jaundice Neurological: No focal deficits. Alert and oriented x 3. Results CBC & Chem 7: 12/04/21 11:51 12/04/21 11:51 Labs: Abnormal Lab Results - Last 24 Hours (Table) 12/04/21 12/04/21 12/04/21 Range/Units 11:51 11:51 11:51 RBC 4.00 L (4.30-5.90) m/uL Hgb 12.6 L (13.0-17.5) gm/dL PT 15.9 H (9.0-12.0) sec INR 1.5 H (<1.2) Sodium (137-145) mmol/L Chloride (98-107) mmol/L Carbon Dioxide (22-30) mmol/L BUN (9-20) mg/dL Magnesium (1.6-2.3) mg/dL Urine Protein 1+ H (Negative) Urine Ketones 3+ H (Negative) Urine Bilirubin 1+ H (Negative) Ur Leukocyte Esterase Trace H (Negative) Urine WBC 7 H (0-5) /hpf Urine Mucus Rare H (None) /hpf 12/04/21 Range/Units 11:51 RBC (4.30-5.90) m/uL Hgb (13.0-17.5) gm/dL PT (9.0-12.0) sec INR (<1.2) Sodium 153 H (137-145) mmol/L Chloride 117 H (98-107) mmol/L Carbon Dioxide 21 L (22-30) mmol/L BUN 30 H (9-20) mg/dL Magnesium 2.4 H (1.6-2.3) mg/dL Urine Protein (Negative) Urine Ketones (Negative) Urine Bilirubin (Negative) Ur Leukocyte Esterase (Negative) Urine WBC (0-5) /hpf Urine Mucus (None) /hpf Comments: CT neck chest with contrast: Patent bypass graft. Degenerative disc disease. Oropharynx is air-filled and somewhat prominent current. Emphysema. Coronary artery disease correlate for pneumonia, consider aspiration. Assessment and Plan (1) Dysphagia Narrative/Plan: 76-year-old male who presented to the emergency department with complaints of difficulty swallowing and not being able to eat over the last 9 days duration. He is now even having some difficulty with swallowing water and has some regurgitation. The patient recently underwent EGD in the beginning of November when he came in and presented for GI bleed with a Coumadin toxicity. He was transferred to [facility] for upper endoscopy and his states they found 2 ulcers. He is denies any history of epigastric pain or acid reflux. Denies any pain with swallowing or difficulty with breathing. He did have a CT of the neck that showed a normal esophagus but stated oropharynx is air filled and somewhat prominent appearance. Patient was at first adamant about going home, we did recommend upper endoscopy tomorrow to evaluate for dysphagia. Patient now has agreed to stay and proceed with EGD. I recommend holding Plavix. Current Visit: Yes Status: Acute Code(s): R13.10 - DYSPHAGIA, UNSPECIFIED SNOMED Code(s): 28109400 Plan: 1. Continue symptomatic and supportive care 2. Keep nothing by mouth 3. Hold Plavix 4. Protonix 40 mg twice a day 5. Will proceed with EGD tomorrow morning. Procedure discussed with patient and his including risks and benefits, patient is agreeable to proceed. Thank you for allowing us to participate in the care of the patient, the GI service will sign off, gastroenterology will not be available at the hospital this weekend after EGD is performed. If further evaluation by gastroenterology is required the patient will need transfer as per the primary team's discretion. Dr. Benito Munson I agree with the dictator's note, documented as a scribe by Juli Lu.
[2021-12-04] MEDS: IPRATROPIUM-ALBUTEROL 3 ML NEB INHALATION PRN ×2 (16:53→20:22)
--- NOTE | 2021-12-04 21:49 | P.HPIM ---
History of Present Illness This is a pleasant 76 years old male with past medical history of COPD, methylenetetrahydrofolate reductase (blood clotting disorder) Presents with inability to eat and drink for the last 9 days, patient is poor historian and information was obtained from the at bedside, patient was hardly able to eat, he was consuming only small amount of liquid stuff every day but becomes harder for him. Patient himself is awake and alert and follows commands he denies chest pain or dyspnea, no abdominal pain, denies constipation Alejandra no fever. 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 Review of Systems CONSTITUTIONAL: No fever, no malaise, no fatigue. HEENT: No recent visual problems or hearing problems. Denied any sore throat. CARDIOVASCULAR: No orthopnea, PND, no palpitations, no syncope. PULMONARY: No shortness of breath, no cough, no hemoptysis. GASTROINTESTINAL: No diarrhea, no nausea, no vomiting, no abdominal pain. Normoactive bowel sounds. NEUROLOGICAL: No headaches, no weakness, no numbness. HEMATOLOGICAL: Denies any bleeding or petechiae. GENITOURINARY: Denies any burning micturition, frequency, or urgency. MUSCULOSKELETAL/RHEUMATOLOGICAL: Denies any joint pain, swelling, or any muscle pain. ENDOCRINE: Denies any polyuria or polydipsia. 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, COPD, methylenetetrahydrofolate reductase (blood clotting disorder) History of Any Multi-Drug Resistant Organisms: None Reported Past Surgical History: Unable to Obtain Additional Past Surgical History / Comment(s): right hip fx, Past Anesthesia/Blood Transfusion Reactions: No Reported Reaction Past Psychological History: No Psychological Hx Reported Smoking Status: Former smoker Past Alcohol Use History: Occasional Past Drug Use History: None Reported Medications and Allergies Home Medications Medication Instructions Recorded Confirmed Type Folic Acid 1 mg PO HS 11/26/19 12/04/21 History Clopidogrel Bisulfate [Plavix] 75 mg PO HS 11/30/21 12/04/21 History Pantoprazole Sodium 40 mg PO BID 11/30/21 12/04/21 History Potassium Chloride [Klor-Con M10] 10 meq PO DAILY 11/30/21 12/04/21 History Allergies Allergy/AdvReac Type Severity Reaction Status Date / Time No Known Allergies Allergy Verified 12/04/21 13:28 Physical Exam Vitals: Vital Signs Temp Pulse Resp BP Pulse Ox 12/04/21 14:08 97.7 F 78 24 154/79 99 12/04/21 10:10 97.8 F 73 18 134/88 98 Intake and Output 12/04/21 12/04/21 12/04/21 06:59 14:59 22:59 Other: Weight 63.503 kg - GENERAL: The patient is alert and oriented x2-3, not in any acute distress. Well developed, well nourished. Patient is thin built HEENT: Pupils are round and equally reacting to light. EOMI. No scleral icterus. No conjunctival pallor. Normocephalic, atraumatic. No pharyngeal erythema. No thyromegaly. CARDIOVASCULAR: S1 and S2 present. No murmurs, rubs, or gallops. PULMONARY: Chest is clear to auscultation, no wheezing or crackles. ABDOMEN: Soft, nontender, nondistended, normoactive bowel sounds. No palpable organomegaly. MUSCULOSKELETAL: No joint swelling or deformity. EXTREMITIES: No cyanosis, clubbing, or pedal edema. NEUROLOGICAL: Gross neurological examination did not reveal any focal deficits. SKIN: No rashes. No petechiae Results CBC & Chem 7: 12/04/21 11:51 12/04/21 11:51 Labs: Abnormal Lab Results - Last 24 Hours (Table) 12/04/21 12/04/21 12/04/21 Range/Units 11:51 11:51 11:51 RBC 4.00 L (4.30-5.90) m/uL Hgb 12.6 L (13.0-17.5) gm/dL PT 15.9 H (9.0-12.0) sec INR 1.5 H (<1.2) Sodium (137-145) mmol/L Chloride (98-107) mmol/L Carbon Dioxide (22-30) mmol/L BUN (9-20) mg/dL Magnesium (1.6-2.3) mg/dL Urine Protein 1+ H (Negative) Urine Ketones 3+ H (Negative) Urine Bilirubin 1+ H (Negative) Ur Leukocyte Esterase Trace H (Negative) Urine WBC 7 H (0-5) /hpf Urine Mucus Rare H (None) /hpf 12/04/21 Range/Units 11:51 RBC (4.30-5.90) m/uL Hgb (13.0-17.5) gm/dL PT (9.0-12.0) sec INR (<1.2) Sodium 153 H (137-145) mmol/L Chloride 117 H (98-107) mmol/L Carbon Dioxide 21 L (22-30) mmol/L BUN 30 H (9-20) mg/dL Magnesium 2.4 H (1.6-2.3) mg/dL Urine Protein (Negative) Urine Ketones (Negative) Urine Bilirubin (Negative) Ur Leukocyte Esterase (Negative) Urine WBC (0-5) /hpf Urine Mucus (None) /hpf Assessment and Plan Assessment: Dysphagia Moderate to severe calories protein malnutrition Hyponatremia COPD, with mild acute exacerbation Possible some elements of metabolic encephalopathy History of methylenetetrahydrofolate reductase Plan: This is a pleasant 76 years old male who presents with dysphagia Start the patient on D5 half normal saline No midline could be placed over the weekend to start TPN for him however we will ask for nutrition consult Gastroenterology consult are planning for EGD tomorrow Start the patient on some Medrol 40 mg twice a day Plavix Hold to the Procedure of EGD Tomorrow Patient was started on Zosyn in the emergency room, we will continue to check for occult stone and and chest x-ray tomorrow if was negative and antibiotics ca n be stopped Labs and medication were reviewed.. Continue same treatment. Continue with symptomatic treatment. Resume home medication. Monitor lytes and vitals. DVT and GI prophylaxis. Further recommendations depends on the clinical course of the patient DVT prophylaxis: Subcutaneous heparin GI Prophylaxis: Pepcid PT/OT: Pending Prognosis is guarded
[2021-12-04] MEDS: DEXTROSE 5%-0.45% NACL 1,000 ML IV SCH (22:24)
[2021-12-04] MEDS: FAMOTIDINE 20 MG/2 ML VIAL IV SCH (22:25)
[2021-12-04] MEDS: methylPREDNISolone SOD SUCCI 40 MG/ML 1 ML VIAL IV SCH (22:27)
[2021-12-04] MEDS: HEPARIN SODIUM,PORCINE/PF 5,000 UNIT/0.5 ML SYRINGE SQ SCH (22:29)
[2021-12-05] MEDS: PIPERACILLIN-TAZOBACTAM 3.375 GM in SODIUM CHLORIDE 0.9% 100 ML IVPB SCH ×3 (01:16→17:42)
[2021-12-05] MEDS ORDERED: PROPOFOL 10 MG/ML 20 ML VIAL IV ONE (06:47)
[2021-12-05] MEDS ORDERED: LIDOCAINE 1% INJ 10MG/ML (20 ML MDV) ONE (06:47)
[2021-12-05] MEDS ORDERED: IV FLUID CONTINUATION 1,000 ML IV ONE (06:48)
--- NOTE | 2021-12-05 07:00 | P.PCN ---
Date of Procedure: 12/05/21 Procedure(s) Performed: BRIEF HISTORY: Patient is a 76-year-old, pleasant, male admitted hospital with dysphagia for the last 9 days duration. Patient states is unable the swallow solids or liquids but denies any choking episodes. Denies any cough. He never had these symptoms in the past. There is CT of the neck done yesterday the ER that was unremarkable. He recently had an upper endoscopy for acute upper GI bleed at [facility] 2 weeks ago and according to his was diagnosed with peptic ulcer disease.. Because of acute onset of dysphagia is scheduled for an upper endoscopy to evaluate further PROCEDURE PERFORMED: Esophagogastroduodenoscopy. PREOPERATIVE DIAGNOSIS: Acute dysphagia to solids and liquids of 9 days duration. IV sedation per anesthesia. PROCEDURE: After informed consent was obtained, the patient was brought into the endoscopy unit. IV sedation was administered by Anesthesia under continuous monitoring. Initially the Olympus GIF-140 video endoscope was inserted into the mouth. Esophagus intubated without any difficulty. It was gradually advanced into the stomach and duodenum and carefully examined. The bulb had mild duodenitis and the second part of the duodenum appeared normal. The scope at this time was withdrawn to the stomach, adequately insufflated with air, and upon careful examination, mucosa of the antrum, body diffuse gastritis but no evidence of active peptic ulcer disease. The, cardia and the fundus appeared normal. The scope was then withdrawn into the esophagus. The GE junction was located at 39 cm from the incisors. The esophagus appeared normal. There were no erosions or ulcerations seen and no evidence of esophageal stricture and the patient tolerated the procedure well. IMPRESSION: 1. Normal-appearing esophagus with no evidence of esophagitis or esophageal stricture. 2. Mild diffuse gastritis. 3. Previously noted ulcers in the stomach have completely healed RECOMMENDATIONS: The findings of this examination were discussed with the patient. Will start him on regular diet and she has results. If he continues to complain of dysphagia , this may to be investigated further with a modified barium swallow to assess for oropharyngeal dysphagia/possible CVA.
[2021-12-05] MEDS: DEXTROSE 5%-0.45% NACL 1,000 ML IV SCH ×2 (09:34→17:52)
[2021-12-05] MEDS: HEPARIN SODIUM,PORCINE/PF 5,000 UNIT/0.5 ML SYRINGE SQ SCH ×2 (09:35→21:15)
[2021-12-05] MEDS: methylPREDNISolone SOD SUCCI 40 MG/ML 1 ML VIAL IV SCH ×2 (09:35→21:16)
[2021-12-05] MEDS: FAMOTIDINE 20 MG/2 ML VIAL IV SCH ×2 (09:35→21:15)
[2021-12-05 14:06] LABS: African American GFR (CKD) 83.2 (60.0-200.0); Anion Gap 16.3 mmol/L (10.00-18.00); BUN/Creat Ratio 25.1 Ratio (12.00-20.00); Blood Urea Nitrogen 25.1 mg/dL (9.0-27.0); Calcium 8.6 mg/dL (8.7-10.3); Carbon Dioxide 21.7 mmol/L (20.0-27.5); Magnesium 2.3 mg/dL (1.5-2.4); Non-African American GFR(CKD) 71.8 (60.0-200.0); Potassium 3.4 mmol/L (3.5-5.5)
[2021-12-05 14:35] VITALS: BMI 20.7
[2021-12-05] MEDS: IPRATROPIUM-ALBUTEROL 3 ML NEB INHALATION SCH (19:41)
[2021-12-05] MEDS ORDERED: DEXTROSE 5% IN WATER 1,000 ML IV ONE (20:11)
--- NOTE | 2021-12-05 20:18 | P.PN ---
Subjective Progress Note Date: 12/05/21 This is a pleasant 76 years old male with past medical history of COPD, methylenetetrahydrofolate reductase (blood clotting disorder) Presents with inability to eat and drink for the last 9 days, patient is poor historian and information was obtained from the at bedside, patient was hardly able to eat, he was consuming only small amount of liquid stuff every day but becomes harder for him. Patient himself is awake and alert and follows commands he denies chest pain or dyspnea, no abdominal pain, denies constipation Alejandra no fever. 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 12/05/2021 Patient is currently resting in bed. Awake and alert. Patient does have difficulty swallowing. Underwent EGD today. Showed a normal-appearing esophagus with no evidence of esophagitis or esophageal stricture. Mild diffuse gastritis. Previously noted ulcers in the stomach have completely healed. Patient was started back on regular diet. Speech and swallow evaluation pulmonary on Tuesday. GI is on board. Laboratory data showed sodium 158, potassium 3.4 chloride 120 BUN 25.1 and creatinine 1.0 calcium 8.6 procalcitonin level is 0.08 Urinalysis showed cloudy with 1+ protein and 3+ ketones and WBCs 7 with squamous epithelial cells 4. Blood cultures have been negative. Blood pressure is elevated Current medications reviewed. Objective - Vital Signs Vital signs: Vital Signs Temp 97.7 F 12/05/21 11:40 Pulse 59 L 12/05/21 11:40 Resp 20 12/05/21 11:40 BP 175/75 12/05/21 11:40 Pulse Ox 100 12/05/21 11:40 Intake & Output 12/04/21 12/05/21 12/05/21 18:59 06:59 18:59 Intake Total 1000 Output Total 400 Balance 600 Weight 63.503 kg 63.503 kg 63.503 kg Intake: IV 100 Intake, IV Titration 900 Amount Dextrose 5%-0.45% NaCl 1, 800 000 ml @ 100 mls/hr IV . Q10H [facility] Rx#:[id number] Piperacillin-Tazobactam 3 100 .375 gm In Sodium Chloride 0.9% 100 ml @ 25 mls/hr IVPB Q8H [facility] Rx#: [id number] Output: Urine 400 Other: Voiding Method Urinal Urinal - Exam - GENERAL: The patient is alert and oriented x2-3, not in any acute distress. Well developed, well nourished. Patient is thin built HEENT: Pupils are round and equally reacting to light. EOMI. No scleral icterus. No conjunctival pallor. Normocephalic, atraumatic. No pharyngeal erythema. No thyromegaly. CARDIOVASCULAR: S1 and S2 present. No murmurs, rubs, or gallops. PULMONARY: Chest is clear to auscultation, no wheezing or crackles. ABDOMEN: Soft, nontender, nondistended, normoactive bowel sounds. No palpable organomegaly. MUSCULOSKELETAL: No joint swelling or deformity. EXTREMITIES: No cyanosis, clubbing, or pedal edema. NEUROLOGICAL: Gross neurological examination did not reveal any focal deficits. SKIN: No rashes. No petechiae - Labs CBC & Chem 7: 12/04/21 11:51 12/05/21 07:13 Labs: Abnormal Lab Results - Last 24 Hours (Table) 12/05/21 Range/Units 07:13 Sodium 158 H (135-145) mmol/L Potassium 3.4 L (3.5-5.5) mmol/L Chloride 120 H (96-109) mmol/L BUN/Creatinine Ratio 25.10 H (12.00-20.00) Ratio Glucose 183 H (70-110) mg/dL Calcium 8.6 L (8.7-10.3) mg/dL Assessment and Plan Assessment: Dysphagia. Status post EGD showed no evidence of esophagitis or esophageal stricture. Mild diffuse gastritis. Moderate to severe calories protein malnutrition Hypernatremia COPD, with mild acute exacerbation Possible some elements of metabolic encephalopathy History of methylenetetrahydrofolate reductase Plan: This is a pleasant 76 years old male who presents with dysphagia No midline could be placed over the weekend to start TPN for him however we will ask for nutrition consult. IV fluids changed to D5 water at 100 cc/h. Follow-up sodium level closely. Gastroenterology service is following. Patient is status post EGD today. Showed no evidence of obstruction. Started on oral diet. If the patient continues to have dysphagia may need barium swallow evaluation and speech and swallow evaluation. Start the patient on some Medrol 40 mg twice a day Plavix Hold to the Procedure of EGD Chest x-ray showed improved aeration and urinalysis is negative for infection and blood cultures have been negative. Zosyn will be discontinued. Procalcitonin is not elevated also. Labs and medication were reviewed. Monitor lytes and vitals. DVT and GI prophylaxis. DVT prophylaxis: Subcutaneous heparin GI Prophylaxis: Pepcid PT/OT: Pending Prognosis is guarded Time with Patient: Greater than 30
[2021-12-06 00:31] LABS: HCT 34.2 % (39.6-50.0); HGB 10.2 g/dL (13.0-17.0); MCH 29.7 pg (27.0-32.0); MCHC 29.8 g/dL (32.0-37.0); MCV 99.4 fL (80.0-97.0); Mean Platelet Volume 11.2 fL (9.5-12.2); NRBC Per 100 WBC 0 /100 WBCS (0.0-0.0); Platelet Count 150 X 10*3/uL (140-440); RBC 3.44 X 10*6/uL (4.40-5.60); RDW 15.7 % (11.5-14.5); WBC 2.87 X 10*3/uL (4.50-10.00)
[2021-12-06 00:58] LABS: Basophils # (A) 0.01 X 10*3/uL (0.00-0.10); Basophils % (A) 0.3 %; Eosinophils # (A) 0 X 10*3/uL (0.04-0.35); Eosinophils % (A) 0 %; Immature Grans, Automated 0.3 %; Lymphocytes % (A) 10.5 %; Monocytes # (A) 0.03 X 10*3/uL (0.20-1.00); Neutrophils # (A) 2.52 X 10*3/uL (1.80-7.70); Neutrophils % (A) 87.9 %
[2021-12-06] MEDS: IPRATROPIUM-ALBUTEROL 3 ML NEB INHALATION SCH ×4 (07:18→19:32)
[2021-12-06] MEDS: HEPARIN SODIUM,PORCINE/PF 5,000 UNIT/0.5 ML SYRINGE SQ SCH ×2 (08:53→20:24)
[2021-12-06] MEDS: FAMOTIDINE 20 MG/2 ML VIAL IV SCH ×2 (08:53→20:24)
[2021-12-06] MEDS: methylPREDNISolone SOD SUCCI 40 MG/ML 1 ML VIAL IV SCH ×2 (08:53→20:24)
[2021-12-06 09:12] LABS: Basophils # (A) 0 X 10*3/uL (0.00-0.10); Basophils % (A) 0 %; Eosinophils # (A) 0 X 10*3/uL (0.04-0.35); Eosinophils % (A) 0 %; HCT 32.6 % (39.6-50.0); HGB 9.9 g/dL (13.0-17.0); Immature Grans, Automated 0.2 %; Lymphocytes # (A) 0.48 X 10*3/uL (0.90-5.00); Lymphocytes % (A) 10.9 %; MCH 29.9 pg (27.0-32.0); MCHC 30.4 g/dL (32.0-37.0); MCV 98.5 fL (80.0-97.0); Mean Platelet Volume 10.9 fL (9.5-12.2); Monocytes # (A) 0.13 X 10*3/uL (0.20-1.00); Monocytes % (A) 2.9 %; NRBC Per 100 WBC 0 /100 WBCS (0.0-0.0); Platelet Count 130 X 10*3/uL (140-440); RBC 3.31 X 10*6/uL (4.40-5.60); WBC 4.42 X 10*3/uL (4.50-10.00)
[2021-12-06 09:26] LABS: African American GFR (CKD) 99.2 (60.0-200.0); Anion Gap 10.7 mmol/L (10.00-18.00); BUN/Creat Ratio 23.5 Ratio (12.00-20.00); Blood Urea Nitrogen 18.8 mg/dL (9.0-27.0); Calcium 8.4 mg/dL (8.7-10.3); Carbon Dioxide 26.3 mmol/L (20.0-27.5); Non-African American GFR(CKD) 85.6 (60.0-200.0); Potassium 2.9 mmol/L (3.5-5.5)
[2021-12-06] MEDS ORDERED: Potassium Replacement Protocol 1 EACH MISC MISCELLANE PRN (10:37)
[2021-12-06] MEDS: POTASSIUM CHLORIDE 10 MEQ in WATER FOR INJECTION 1 100ML.BAG IVPB SCH ×6 (11:07→19:08)
--- NOTE | 2021-12-06 14:14 | XR ---
EXAMINATION TYPE: XR chest 2V DATE OF EXAM: 12/06/2021 COMPARISON: Chest x-ray 12/04/2021 HISTORY: Shortness of breath and cough TECHNIQUE: Frontal and lateral views of the chest are obtained on 3 images. FINDINGS: Patchy density is present in the left lower lobe and right. There is underlying emphysema. No evident pneumothorax or pleural effusion. Heart is small. Patient is rotated. Aorta is dense. IMPRESSION: Correlate for pneumonia.
[2021-12-06] MEDS: PIPERACILLIN-TAZOBACTAM 3.375 GM in SODIUM CHLORIDE 0.9% 100 ML IVPB SCH (20:22)
[2021-12-06] MEDS: DEXTROSE 5% IN WATER 1,000 ML IV SCH (23:54)
[2021-12-07] MEDS: PIPERACILLIN-TAZOBACTAM 3.375 GM in SODIUM CHLORIDE 0.9% 100 ML IVPB SCH ×4 (01:21→23:55)
[2021-12-07] MEDS: IPRATROPIUM-ALBUTEROL 3 ML NEB INHALATION SCH ×4 (07:58→19:07)
[2021-12-07] MEDS: methylPREDNISolone SOD SUCCI 40 MG/ML 1 ML VIAL IV SCH ×2 (09:14→20:08)
[2021-12-07] MEDS: FAMOTIDINE 20 MG/2 ML VIAL IV SCH ×2 (09:14→20:08)
[2021-12-07] MEDS: HEPARIN SODIUM,PORCINE/PF 5,000 UNIT/0.5 ML SYRINGE SQ SCH ×2 (09:14→20:08)
--- NOTE | 2021-12-07 09:48 | CDI ---
Documentation Clarification Form Date: 12/07/2021 09:25:04 AM From: Dhara Thomas RN, CCDS Admit Date: 12/04/2021 03:31:00 PM Patient Name: Guanaco Hernandez Visit Number: [id number] Discharge Date: ATTENTION: The Clinical Documentation Specialists (CDI) and [facility] Coding Staff appreciate your assistance in clarifying documentation. Please respond to the clarification below the line at the bottom and electronically sign. The CDI & [facility] Coding staff will review the response and follow-up if needed. Please note: Queries are made part of the Legal Health Record. If you have any questions, please contact the author of this message via ITS. Dr. Jonh Santamaria Moderate to severe Malnutrition is documented in the H/P and subsequent progress notes Additional clarification regarding the severity of malnutrition is requested. History/Risk Factors: COPD, Dysphagia, Clinical Indicators: 76-year-old male present to ED as revisit for complaints of dysphagia, inability to eat or drink for the last 9 days. Current BMI: 20.7 Insufficient energy intake: Yes Weight Loss: Underweight Loss of subcutaneous fat: Pt has moderate muscle wasting to clavicle and temporal regions with moderate fat wasting to ribs. RD Consult Assessment: Inadequate oral intake, malnutrition acute severe Treatment: Dietary Consult: Yes Magic cup (when diet starts) 12/05 EGD: Mild diffuse gastritis. Normal-appearing esophagus with no evidence of esophagitis or esophageal stricture .9NS 500 MG Bolus IV X2 Monitor lytes and vitals Please clarify the most appropriate response for the severity of malnutrition, if known: [ ] Moderate Protein-Calorie Malnutrition [ ] Severe Protein-Calorie Malnutrition [ ] Other condition, please specify [ ] Unable to Determine (Template Last Revised: December 2020) Severe protein calorie malnutrition with a bmi of 20.7 Kathy Leiva Signed By: <Electronically signed by Kathy BAINS> 12/08/21 1534 [facility]
[2021-12-07 10:01] LABS: Basophils # (A) 0.01 X 10*3/uL (0.00-0.10); Basophils % (A) 0.3 %; Eosinophils # (A) 0 X 10*3/uL (0.04-0.35); Eosinophils % (A) 0 %; HCT 32.3 % (39.6-50.0); HGB 10.2 g/dL (13.0-17.0); Immature Grans, Automated 1.4 %; Lymphocytes # (A) 0.45 X 10*3/uL (0.90-5.00); Lymphocytes % (A) 12.5 %; MCH 30.4 pg (27.0-32.0); MCHC 31.6 g/dL (32.0-37.0); MCV 96.4 fL (80.0-97.0); Mean Platelet Volume 10.9 fL (9.5-12.2); Monocytes % (A) 2.8 %; NRBC Per 100 WBC 0 /100 WBCS (0.0-0.0); Platelet Count 106 X 10*3/uL (140-440); RBC 3.35 X 10*6/uL (4.40-5.60); RDW 14.9 % (11.5-14.5); WBC 3.61 X 10*3/uL (4.50-10.00)
[2021-12-07 10:11] LABS: African American GFR (CKD) 94.5 (60.0-200.0); Anion Gap 12.1 mmol/L (10.00-18.00); BUN/Creat Ratio 19.78 Ratio (12.00-20.00); Blood Urea Nitrogen 17.8 mg/dL (9.0-27.0); Calcium 8.6 mg/dL (8.7-10.3); Carbon Dioxide 25.9 mmol/L (20.0-27.5); Non-African American GFR(CKD) 81.5 (60.0-200.0); Potassium 3.4 mmol/L (3.5-5.5)
[2021-12-07] MEDS ORDERED: Potassium Replacement Protocol 1 EACH MISC MISCELLANE PRN (11:31)
[2021-12-07] MEDS: POTASSIUM CHLORIDE 10 MEQ in WATER FOR INJECTION 1 100ML.BAG IVPB SCH ×4 (14:16→21:24)
[2021-12-07] MEDS: DEXTROSE 5% IN WATER 1,000 ML IV SCH ×2 (15:21→20:08)
--- NOTE | 2021-12-07 17:31 | P.PN ---
Subjective Progress Note Date: 12/07/21 Principal diagnosis: Dysphagia This 68-year-old male who presented to the emergency department last week with complaints of difficulty with swallowing foods and solids. Apparently every time he swallows he had ends up coughing and choking somewhat. He underwent an EGD on 12/05/2021 with findings of normal-appearing esophagus with no evidence of esophagitis or esophageal stricture. Mild diffuse gastritis. Previously noted ulcers and stomach have completely healed. Patient has been nothing by mouth throughout the weekend. Modified barium swallow has been ordered. There is concerns for aspiration pneumonia. Objective - Vital Signs Vital signs: Vital Signs Temp 97.3 F L 12/07/21 05:00 Pulse 63 12/07/21 05:00 Resp 16 12/07/21 05:00 BP 129/73 12/07/21 05:00 Pulse Ox 97 12/07/21 05:00 Intake & Output 12/06/21 12/07/21 12/07/21 18:59 06:59 18:59 Intake Total 500 1390 Output Total 600 200 Balance 500 790 -200 Intake: Intake, IV Titration 500 800 Amount Dextrose 5% in Water 1, 600 000 ml @ 75 mls/hr IV . [id number] [facility] Rx#:[id number] Piperacillin-Tazobactam 3 200 .375 gm In Sodium Chloride 0.9% 100 ml @ 25 mls/hr IVPB Q8HR [facility] Rx# :[id number] Potassium Chloride 10 meq 500 In Water For Injection 1 100ml.bag @ 100 mls/hr IVPB Q1H [facility] Rx#: [id number] Oral 590 Output: Urine 600 200 Other: Voiding Method Urinal Urinal Urinal Incontinent Incontinent Incontinent # Voids 2 # Bowel Movements 1 - Exam General appearance: The patient is alert, oriented, appears in no acute distress. HET: Head is normocephalic and atraumatic. Conjunctiva pink. Sclera anicteric. Neck: Supple without lymphadenopathy. Abdomen: Soft, nontender, nondistended with bowel sounds. No guarding or rigidity. Extremities: Normal skin color and turgor. No pedal edema Skin: No rashes, no jaundice Neurological: No focal deficits. Alert and oriented -3. - Labs CBC & Chem 7: 12/07/21 06:16 12/07/21 06:16 Labs: Abnormal Lab Results - Last 24 Hours (Table) 12/07/21 12/07/21 Range/Units 06:16 06:16 WBC 3.61 L (4.50-10.00) X 10*3/uL RBC 3.35 L (4.40-5.60) X 10*6/uL Hgb 10.2 L (13.0-17.0) g/dL Hct 32.3 L (39.6-50.0) % MCHC 31.6 L (32.0-37.0) g/dL RDW 14.9 H (11.5-14.5) % Plt Count 106 L (140-440) X 10*3/uL Immature Gran # 0.05 H (0.00-0.04) X 10*3/uL Lymphocytes # 0.45 L (0.90-5.00) X 10*3/uL Monocytes # 0.10 L (0.20-1.00) X 10*3/uL Eosinophils # 0 L (0.04-0.35) X 10*3/uL Sodium 147 H (135-145) mmol/L Potassium 3.4 L (3.5-5.5) mmol/L Glucose 123 H (70-110) mg/dL Calcium 8.6 L (8.7-10.3) mg/dL Microbiology - Last 24 Hours (Table) 12/04/21 16:40 Blood Culture - Preliminary Blood No Growth after 48 hours 12/04/21 16:55 Blood Culture - Preliminary Blood No Growth after 48 hours Assessment and Plan (1) Dysphagia Narrative/Plan: 76-year-old male who presented to the emergency department with complaints of difficulty swallowing and not being able to eat over the last 9 days duration. He is now even having some difficulty with swallowing water and has some regurgitation. The patient recently underwent EGD in the beginning of November when he came in and presented for GI bleed with a Coumadin toxicity. He was transferred to [facility] for upper endoscopy and his states they found 2 ulcers. He is denies any history of epigastric pain or acid reflux. Denies any pain with swallowing or difficulty with breathing. He did have a CT of the neck that showed a normal esophagus but stated oropharynx is air filled and somewhat prominent appearance. Patient was at first adamant about going home, we did recommend upper endoscopy tomorrow to evaluate for dysphagia. Patient now has agreed to stay and proceed with EGD. I recommend holding Plavix. Patient underwent EGD on 12/05/2021 with a normal-appearing esophagus with no evidence of esophagitis or esophageal stricture. Mild diffuse gastritis previously noted ulcers and stomach have completely healed. Possible etiology for dysphagia could be related to underlying CVA. There is questionable aspiration pneumonia. Patient to undergo modified barium swallow today. May need to consider PEG tube placement to meet nutritional needs. Current Visit: Yes Status: Acute Code(s): R13.10 - DYSPHAGIA, UNSPECIFIED SNOMED Code(s): 52253313 Plan: 1. Continue symptomatic and supportive care 2. Await barium swallow 3. Further recommendations forthcoming based on the above study Thank you for this consultation, we will continue to follow. Dr. Benito Munson I agree with the dictator's note, documented as a scribe by Juli Lu.
--- NOTE | 2021-12-07 18:51 | FL ---
EXAMINATION TYPE: FL barium swallow w video DATE OF EXAM: 12/07/2021 COMPARISON: NONE HISTORY: Aspiration. FINDINGS: Patient was evaluated in real-time fluoroscopy in the lateral projection while ingesting barium mixe d with liquids and solids. Initial thin liquids drinking patient aspirated and promptly coughed. Posterior pharyngeal and vallec ular residuals are noted during the course of the exam. See dictated report from speech pathology. 89 seconds fluoroscopy time. No images obtained.
--- NOTE | 2021-12-07 22:13 | P.PN ---
Subjective Progress Note Date: 12/07/21 This is a pleasant 76 years old male with past medical history of COPD, methylenetetrahydrofolate reductase (blood clotting disorder) Presents with inability to eat and drink for the last 9 days, patient is poor historian and information was obtained from the at bedside, patient was hardly able to eat, he was consuming only small amount of liquid stuff every day but becomes harder for him. Patient himself is awake and alert and follows commands he denies chest pain or dyspnea, no abdominal pain, denies constipation Alejandra no fever. 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 12/05/2021 Patient is currently resting in bed. Awake and alert. Patient does have difficulty swallowing. Underwent EGD today. Showed a normal-appearing esophagus with no evidence of esophagitis or esophageal stricture. Mild diffuse gastritis. Previously noted ulcers in the stomach have completely healed. Patient was started back on regular diet. Speech and swallow evaluation on Tuesday. GI is on board. Laboratory data showed sodium 158, potassium 3.4 chloride 120 BUN 25.1 and creatinine 1.0 calcium 8.6 procalcitonin level is 0.08 Urinalysis showed cloudy with 1+ protein and 3+ ketones and WBCs 7 with squamous epithelial cells 4. Blood cultures have been negative. Blood pressure is elevated 12/07/2021 Patient is seen and evaluated this morning and is being closely monitored. Patient is currently NPO and awaiting modified barium swallow today. Patient continues on IV antibiotics in the form of Zosyn and will continue. Patient is also receiving IV steroids and breathing inhalational treatments. Patient sodium is trending down although continues to be elevated and will continue with D5 in water and repeat am labs. Patient denies abdominal pain. Patient denies chest pain or shortness of breath. Patient is afebrile. Review of systems: Constitutional: reports of fatigue, no reports of fever, or chills Cardiovascular: No reports of chest pain or palpitations Respiratory: No reports of worsening shortness of breath GI: No reports of nausea, no reports of vomiting : No reports of dysuria or retention Neurovascular: reports of generalized weakness All medications have been reviewed Active Medications Albuterol/Ipratropium (Ipratropium-Albuterol 3 Ml Neb) 3 ml INHALATION RT-TID PRN PRN Reason: Shortness Of Breath Or Wheezing Last Admin: 12/04/21 20:22 Dose: 3 ml Documented by: Albuterol/Ipratropium (Ipratropium-Albuterol 3 Ml Neb) 3 ml INHALATION RT-QID [facility] Last Admin: 12/07/21 19:07 Dose: 3 ml Documented by: Famotidine (Famotidine 20 Mg/2 Ml Vial) 20 mg IV Q12HR [facility] Last Admin: 12/07/21 20:08 Dose: 20 mg Documented by: Heparin Sodium (Porcine) (Heparin Sodium,Porcine/Pf 5,000 Unit/0.5 Ml Syringe) 5,000 unit SQ Q12HR [facility] Last Admin: 12/07/21 20:08 Dose: 5,000 unit Documented by: Piperacillin Sod/Tazobactam (Sod 3.375 gm/ Sodium Chloride) 100 mls @ 25 mls/hr IVPB Q8HR [facility]; Protocol Last Admin: 12/07/21 17:40 Dose: 25 mls/hr Documented by: Dextrose/Water (Dextrose 5%-Water Iv Soln) 1,000 mls @ 75 mls/hr IV .[id number] [facility] Last Admin: 12/07/21 20:08 Dose: 75 mls/hr Documented by: Methylprednisolone Sodium Succinate (Methylprednisolone Sod Succi 40 Mg/Ml 1 Ml Vial) 40 mg IV Q12HR [facility] Last Admin: 12/07/21 20:08 Dose: 40 mg Documented by: Miscellaneous Information (Potassium Replacement Protocol 1 Each Misc) 1 each MISCELLANE DAILY PRN; Protocol PRN Reason: Per Protocol Miscellaneous Information (Potassium Replacement Protocol 1 Each Misc) 1 each MISCELLANE DAILY PRN; Protocol PRN Reason: Per Protocol Naloxone HCl (Naloxone 0.4 Mg/Ml 1 Ml Vial) 0.2 mg IV Q2M PRN PRN Reason: Opioid Reversal Ondansetron HCl (Ondansetron 4 Mg/2 Ml Vial) 4 mg IVP Q8HR PRN PRN Reason: Nausea And Vomiting Last Admin: 12/05/21 04:50 Dose: 4 mg Documented by: PHYSICAL EXAMINATION: GENERAL: The patient is alert and oriented x3, thin built, frail, elderly looking male HEENT: Pupils are round and equally reacting to light. EOMI. no scleral icterus. No conjunctival pallor. Normocephalic, atraumatic. No pharyngeal erythema. No thyromegaly. CARDIOVASCULAR: S1 and S2 muffled PULMONARY: diminished breath sounds bilaterally with some mild scattered rhonchi noted. ABDOMEN: soft. non-tender on exam. thin. non-distended, normoactive bowel sounds. No palpable organomegaly. MUSCULOSKELETAL: No joint swelling or deformity. EXTREMITIES: No cyanosis, clubbing, or pedal edema. NEUROLOGICAL: no focal deficits noted. diffuse weakness SKIN: No rashes. no lesions noted Assessment: Dysphagia. Status post EGD showed no evidence of esophagitis or esophageal stricture. Mild diffuse gastritis. Severe protein calorie malnutrition with a bmi of 20.7 Hypernatremia, trending down COPD, with mild acute exacerbation Possible some elements of metabolic encephalopathy History of methylenetetrahydrofolate reductase DVT prophylaxis: Subcutaneous heparin GI Prophylaxis: Pepcid full code Plan: This is a pleasant 76 years old male who presents with dysphagia No PICC could be placed over the weekend to start TPN and is currently NPO. Modified barium swallow ordered for this morning. IV fluids continued with D5 water at 100 cc/h. and sodium trending down and will repeat am labs Gastroenterology service is following. Patient is status post EGD on 12/05. Showed no evidence of obstruction. Started on oral diet. and continues with intolerance and made NPO for possible aspiration. Start the patient on IV steroids 40 mg twice a day Plavix resumed urinalysis is negative for infection and blood cultures have been negative. Zosyn will be continued for now prophylactically for possible aspiration pneum onia. PT/OT: Pending Prognosis is guarded Objective - Vital Signs Vital signs: Vital Signs Temp 97.3 F L 12/07/21 05:00 Pulse 63 12/07/21 05:00 Resp 16 12/07/21 05:00 BP 129/73 12/07/21 05:00 Pulse Ox 97 12/07/21 05:00 Intake & Output 12/06/21 12/07/21 12/07/21 18:59 06:59 18:59 Intake Total 500 1390 Output Total 600 200 Balance 500 790 -200 Intake: Intake, IV Titration 500 800 Amount Dextrose 5% in Water 1, 600 000 ml @ 75 mls/hr IV . [id number] [facility] Rx#:[id number] Piperacillin-Tazobactam 3 200 .375 gm In Sodium Chloride 0.9% 100 ml @ 25 mls/hr IVPB Q8HR [facility] Rx# :[id number] Potassium Chloride 10 meq 500 In Water For Injection 1 100ml.bag @ 100 mls/hr IVPB Q1H [facility] Rx#: [id number] Oral 590 Output: Urine 600 200 Other: Voiding Method Urinal Urinal Incontinent Incontinent # Voids 2 # Bowel Movements 1 - Labs CBC & Chem 7: 12/07/21 06:16 12/07/21 06:16 Labs: Abnormal Lab Results - Last 24 Hours (Table) 12/06/21 Range/Units 06:25 Sodium 151 H (135-145) mmol/L Potassium 2.9 L (3.5-5.5) mmol/L Chloride 114 H (96-109) mmol/L BUN/Creatinine Ratio 23.50 H (12.00-20.00) Ratio Glucose 159 H (70-110) mg/dL Calcium 8.4 L (8.7-10.3) mg/dL TSH 0.244 L (0.350-5.500) uIU/mL Microbiology - Last 24 Hours (Table) 12/04/21 16:40 Blood Culture - Preliminary Blood No Growth after 48 hours 12/04/21 16:55 Blood Culture - Preliminary Blood No Growth after 48 hours
[2021-12-08 07:31] LABS: African American GFR (CKD) >90 (>60 ml/min/1.73 sqM); Anion Gap 2 mmol/L; Blood Urea Nitrogen 16 mg/dL (9-20); Calcium 8.5 mg/dL (8.4-10.2); Carbon Dioxide 31 mmol/L (22-30); Chloride 106 mmol/L (98-107); Glucose 102 mg/dL (74-99); Non-African American GFR(CKD) 84 (>60 ml/min/1.73 sqM); Sodium 139 mmol/L (137-145)
[2021-12-08] MEDS: IPRATROPIUM-ALBUTEROL 3 ML NEB INHALATION SCH ×4 (07:54→19:19)
[2021-12-08] MEDS: PIPERACILLIN-TAZOBACTAM 3.375 GM in SODIUM CHLORIDE 0.9% 100 ML IVPB SCH ×2 (08:50→16:57)
[2021-12-08] MEDS: FAMOTIDINE 20 MG/2 ML VIAL IV SCH ×2 (08:50→21:58)
[2021-12-08] MEDS: HEPARIN SODIUM,PORCINE/PF 5,000 UNIT/0.5 ML SYRINGE SQ SCH ×2 (08:50→21:58)
[2021-12-08] MEDS: methylPREDNISolone SOD SUCCI 40 MG/ML 1 ML VIAL IV SCH ×2 (08:51→21:58)
[2021-12-08] MEDS ORDERED: Potassium Replacement Protocol 1 EACH MISC MISCELLANE PRN (09:16)
[2021-12-08] MEDS: POTASSIUM CHLORIDE 10 MEQ in WATER FOR INJECTION 1 100ML.BAG IVPB SCH ×4 (09:44→14:02)
[2021-12-08] MEDS ORDERED: POTASSIUM CHLORIDE 10 MEQ in WATER FOR INJECTION 1 100ML.BAG IVPB SCH (10:00)
--- NOTE | 2021-12-08 15:33 | P.PN ---
Subjective Progress Note Date: 12/08/21 Principal diagnosis: Dysphagia This 68-year-old male who presented to the emergency department last week with complaints of difficulty with swallowing foods and solids. Apparently every time he swallows he had ends up coughing and choking somewhat. He underwent an EGD on 12/05/2021 with findings of normal-appearing esophagus with no evidence of esophagitis or esophageal stricture. Mild diffuse gastritis. Previously noted ulcers and stomach have completely healed. He underwent a modified barium swallow which showed that he did have some aspiration with thin liquids however he tolerated nectar thickened liquids as well as pured foods. Speech therapy has recommended nectar thickened liquids and pured diet. Patient is refusing to eat states he does not like the food. Discussed with him that other alternatives could include a possible PEG tube placement to meet nutritional needs. Patient states he does not want a PEG tube placed. He is otherwise denying any abdominal pain. No nausea or vomiting. Objective - Vital Signs Vital signs: Vital Signs Temp 97.3 F L 12/08/21 04:29 Pulse 68 12/08/21 08:07 Resp 16 12/08/21 08:07 BP 153/70 12/08/21 04:29 Pulse Ox 97 12/08/21 04:29 Intake & Output 12/07/21 12/08/21 12/08/21 18:59 06:59 18:59 Intake Total 930 1160 Output Total 200 200 Balance 730 960 Intake: Intake, IV Titration 930 1100 Amount Dextrose 5% in Water 1, 900 900 000 ml @ 75 mls/hr IV . [id number] [facility] Rx#:[id number] Piperacillin-Tazobactam 3 100 .375 gm In Sodium Chloride 0.9% 100 ml @ 25 mls/hr IVPB Q8HR [facility] Rx# :[id number] Potassium Chloride 10 meq 30 100 In Water For Injection 1 100ml.bag @ 100 mls/hr IVPB Q1HR [facility] Rx#: [id number] Oral 60 Output: Urine 200 200 Other: Voiding Method Urinal Urinal Incontinent Incontinent # Voids 4 # Bowel Movements 1 1 - Exam General appearance: The patient is alert, oriented, appears in no acute distress. HET: Head is normocephalic and atraumatic. Conjunctiva pink. Sclera anicteric. Neck: Supple without lymphadenopathy. Abdomen: Soft, nontender, nondistended with bowel sounds. No guarding or rigidity. Extremities: Normal skin color and turgor. No pedal edema Skin: No rashes, no jaundice Neurological: No focal deficits. Alert and oriented -3. - Labs CBC & Chem 7: 12/07/21 06:16 12/08/21 06:55 Labs: Abnormal Lab Results - Last 24 Hours (Table) 12/07/21 12/07/21 12/08/21 Range/Units 06:16 06:16 06:55 WBC 3.61 L (4.50-10.00) X 10*3/uL RBC 3.35 L (4.40-5.60) X 10*6/uL Hgb 10.2 L (13.0-17.0) g/dL Hct 32.3 L (39.6-50.0) % MCHC 31.6 L (32.0-37.0) g/dL RDW 14.9 H (11.5-14.5) % Plt Count 106 L (140-440) X 10*3/uL Immature Gran # 0.05 H (0.00-0.04) X 10*3/uL Lymphocytes # 0.45 L (0.90-5.00) X 10*3/uL Monocytes # 0.10 L (0.20-1.00) X 10*3/uL Eosinophils # 0 L (0.04-0.35) X 10*3/uL Sodium 147 H (135-145) mmol/L Potassium 3.4 L 3.0 L (3.5-5.5) mmol/L Carbon Dioxide 31 H (22-30) mmol/L Glucose 123 H 102 H (70-110) mg/dL Calcium 8.6 L (8.7-10.3) mg/dL Microbiology - Last 24 Hours (Table) 12/04/21 16:55 Blood Culture - Preliminary Blood No Growth after 72 hours 12/04/21 16:40 Blood Culture - Preliminary Blood No Growth after 72 hours Assessment and Plan (1) Dysphagia Narrative/Plan: 76-year-old male who presented to the emergency department with complaints of difficulty swallowing and not being able to eat over the last 9 days duration. He is now even having some difficulty with swallowing water and has some regurgitation. The patient recently underwent EGD in the beginning of November when he came in and presented for GI bleed with a Coumadin toxicity. He was transferred to [facility] for upper endoscopy and his states they found 2 ulcers. He is denies any history of epigastric pain or acid reflux. Denies any pain with swallowing or difficulty with breathing. He did have a CT of the neck that showed a normal esophagus but stated oropharynx is air filled and somewhat prominent appearance. Patient was at first adamant about going home, we did recommend upper endoscopy tomorrow to evaluate for dysphagia. Patient now has agreed to stay and proceed with EGD. I recommend holding Plavix. Patient underwent EGD on 12/05/2021 with a normal-appearing esophagus with no evidence of esophagitis or esophageal stricture. Mild diffuse gastritis previously noted ulcers and stomach have completely healed. Possible etiology for dysphagia could be related to underlying CVA. There is questionable aspiration pneumonia. Modified barium swallow was completed patient did have some aspiration on thin liquids however did well with nectar thickened liquids as well as pured foods. Patient at this time is refusing to eat. He is able to eat however again he is refusing. Discussed with him in order to meet nutritional needs he needs to eat, otherwise can consider possible PEG tube placement. Patient states he will not undergo PEG tube placement and tube feedings. Gastroenterology to sign off at this time. He may follow up outpatient if he is not meeting his nutritional goals and needs PEG tube placement. Current Visit: Yes Status: Acute Code(s): R13.10 - DYSPHAGIA, UNSPECIFIED SNOMED Code(s): 40243177 Plan: 1. Continue symptomatic and supportive care 2. Continue with diet per recommendations from speech therapy Discussed with patient and his patient is going to refuse any nutritional intake alternative would be to consider PEG tube placement. Patient is declining at this time. Feel it is reasonable patient be discharged home and can follow up with gastroenterology as needed. Thank you for this consultation, we will sign off at this time. Dr. Benito Munson I agree with the dictator's note, documented as a scribe by Juli Lu.
--- NOTE | 2021-12-08 15:34 | P.PN ---
Subjective Progress Note Date: 12/08/21 This is a pleasant 76 years old male with past medical history of COPD, methylenetetrahydrofolate reductase (blood clotting disorder) Presents with inability to eat and drink for the last 9 days, patient is poor historian and information was obtained from the at bedside, patient was hardly able to eat, he was consuming only small amount of liquid stuff every day but becomes harder for him. Patient himself is awake and alert and follows commands he denies chest pain or dyspnea, no abdominal pain, denies constipation Alejandra no fever. 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 12/05/2021 Patient is currently resting in bed. Awake and alert. Patient does have difficulty swallowing. Underwent EGD today. Showed a normal-appearing esophagus with no evidence of esophagitis or esophageal stricture. Mild diffuse gastritis. Previously noted ulcers in the stomach have completely healed. Patient was started back on regular diet. Speech and swallow evaluation on Tuesday. GI is on board. Laboratory data showed sodium 158, potassium 3.4 chloride 120 BUN 25.1 and creatinine 1.0 calcium 8.6 procalcitonin level is 0.08 Urinalysis showed cloudy with 1+ protein and 3+ ketones and WBCs 7 with squamous epithelial cells 4. Blood cultures have been negative. Blood pressure is elevated 12/07/2021 Patient is seen and evaluated this morning and is being closely monitored. Patient is currently NPO and awaiting modified barium swallow today. Patient continues on IV antibiotics in the form of Zosyn and will continue. Patient is also receiving IV steroids and breathing inhalational treatments. Patient sodium is trending down although continues to be elevated and will continue with D5 in water and repeat am labs. Patient denies abdominal pain. Patient denies chest pain or shortness of breath. Patient is afebrile. 12/08/2021 Patient is seen in follow-up today and is being closely monitored. Patient continues with dysphagia 1 pured diet with nectar thickened liquids and continued aspiration precautions with no straws after being evaluated by speech therapy as patient does continue to show signs of aspiration. Per nursing staff and at the bedside patient is not eating and he reports to not wanting to eat this food. Patient also being evaluated by GI with possible option of PEG tube placement although patient is refusing this at this time. If patient continues to aspirate her having further complications with oral intake patient may follow-up with GI in the outpatient setting for PEG tube placement. Patient continues to be weak and per nursing staff patient was using the urinal at the bedside and slid down to the floor with no obvious injuries noted and patient did not strike his head. Patient is weak and working with physical therapy/occupational therapy daily. Recommending rehab and this was discussed with patient and at the bedside. Patient is agreeable at this time in case management/social work following working on accepting facility. Patient also continues on IV Zosyn at this time. Potassium is 3.0 and will replace per protocol and repeat labs. Sodium has improved at 139 and will discontinue D5 in water and repeat labs in the morning. Labs: Sodium is 139, potassium is 3.0, BUN is 16, creatinine 0.84, calcium is 8.5 Review of systems: Constitutional: reports of fatigue, no reports of fever, or chills Cardiovascular: No reports of chest pain or palpitations Respiratory: No reports of worsening shortness of breath GI: No reports of nausea, no reports of vomiting, reports continued poor oral intake : No reports of dysuria or retention Neurovascular: reports of generalized weakness All medications have been reviewed Active Medications Albuterol/Ipratropium (Ipratropium-Albuterol 3 Ml Neb) 3 ml INHALATION RT-TID PRN PRN Reason: Shortness Of Breath Or Wheezing Last Admin: 12/04/21 20:22 Dose: 3 ml Documented by: Albuterol/Ipratropium (Ipratropium-Albuterol 3 Ml Neb) 3 ml INHALATION RT-QID [facility] Last Admin: 12/08/21 11:51 Dose: Not Given Documented by: Famotidine (Famotidine 20 Mg/2 Ml Vial) 20 mg IV Q12HR NICHO Last Admin: 12/08/21 08:50 Dose: 20 mg Documented by: Heparin Sodium (Porcine) (Heparin Sodium,Porcine/Pf 5,000 Unit/0.5 Ml Syringe) 5,000 unit SQ Q12HR NICHO Last Admin: 12/08/21 08:50 Dose: 5,000 unit Documented by: Piperacillin Sod/Tazobactam (Sod 3.375 gm/ Sodium Chloride) 100 mls @ 25 mls/hr IVPB Q8HR NICHO; Protocol Last Admin: 12/08/21 08:50 Dose: 25 mls/hr Documented by: Methylprednisolone Sodium Succinate (Methylprednisolone Sod Succi 40 Mg/Ml 1 Ml Vial) 40 mg IV Q12HR [facility] Last Admin: 12/08/21 08:51 Dose: 40 mg Documented by: Miscellaneous Information (Potassium Replacement Protocol 1 Each Misc) 1 each MISCELLANE DAILY PRN; Protocol PRN Reason: Per Protocol Miscellaneous Information (Potassium Replacement Protocol 1 Each Misc) 1 each MISCELLANE DAILY PRN; Protocol PRN Reason: Per Protocol Miscellaneous Information (Potassium Replacement Protocol 1 Each Misc) 1 each MISCELLANE DAILY PRN; Protocol PRN Reason: Per Protocol Naloxone HCl (Naloxone 0.4 Mg/Ml 1 Ml Vial) 0.2 mg IV Q2M PRN PRN Reason: Opioid Reversal Ondansetron HCl (Ondansetron 4 Mg/2 Ml Vial) 4 mg IVP Q8HR PRN PRN Reason: Nausea And Vomiting Last Admin: 12/05/21 04:50 Dose: 4 mg Documented by: PHYSICAL EXAMINATION: GENERAL: The patient is alert and oriented x2-3, thin built, frail, elderly looking male HEENT: Pupils are round and equally reacting to light. EOMI. no scleral icterus. No conjunctival pallor. Normocephalic, atraumatic. No pharyngeal erythema. No thyromegaly. CARDIOVASCULAR: S1 and S2 muffled PULMONARY: diminished breath sounds bilaterally with some mild scattered rhonchi noted. ABDOMEN: soft. non-tender on exam. thin. non-distended, normoactive bowel s ounds. No palpable organomegaly. MUSCULOSKELETAL: No joint swelling or deformity. EXTREMITIES: No cyanosis, clubbing, or pedal edema. NEUROLOGICAL: no focal deficits noted. diffuse weakness SKIN: No rashes. no lesions noted Assessment: Dysphagia. Status post EGD showed no evidence of esophagitis or esophageal stricture. Mild diffuse gastritis. Severe protein calorie malnutrition with a bmi of 20.7 Hypernatremia, improved COPD, with mild acute exacerbation Extensive muscle wasting Gait dysfunction Medical debility Possible some elements of metabolic encephalopathy History of methylenetetrahydrofolate reductase (blood clotting disorder) DVT prophylaxis: Subcutaneous heparin GI Prophylaxis: Pepcid full code Plan: This is a pleasant 76 years old male who presents with dysphagia, she was evaluated by speech therapy and underwent modified barium swallow study showing signs of aspiration and patient started on dysphagia 1 pured diet with thickened liquids and encouraged to maintain strict aspiration precautions with head of the bed elevated 30-45 at all times, no straws and, supervision with meals. Patient continues with very poor oral intake and also refusing much of this diet. Will also talk with speech therapy about performing a mini cognitive test as patient is most likely displaying some possible signs of dementia. Patient with continued weakness and working with PT/OT therapy daily and needs rehab on discharge. Case management/social work following and working on accepting facility. Patient is agreeable at this time and family at the bedside. GI following as well and gave the option of a possible PEG tube for and to need nutrition and patient is refusing at this time. Also discussed the option of possible hospice and family is not ready for this at this time. Patient continue on IV Zosyn along with breathing inhalational treatments and IV steroids with follow-up labs in the morning. Replace potassium per protocol. The impression and plan of care has been dictated by Kathy Leiva, nurse practitioner as directed. Dr. Rosalio MD I have performed a history and examination and MDM of this patient, discussed the same with the dictator, and agree with the dictator's assessment and plan as written ,documented as a scribe. Based on total visit time, I have performed more than 50% of the visit. Any additional findings or plans will be noted. Objective - Vital Signs Vital signs: Vital Signs Temp 97.3 F L 12/08/21 04:29 Pulse 68 12/08/21 08:07 Resp 16 12/08/21 08:07 BP 153/70 12/08/21 04:29 Pulse Ox 97 12/08/21 04:29 Intake & Output 12/07/21 12/08/21 12/08/21 18:59 06:59 18:59 Intake Total 930 1160 Output Total 200 200 Balance 730 960 Intake: Intake, IV Titration 930 1100 Amount Dextrose 5% in Water 1, 900 900 000 ml @ 75 mls/hr IV . [id number] NICHO Rx#:[id number] Piperacillin-Tazobactam 3 100 .375 gm In Sodium Chloride 0.9% 100 ml @ 25 mls/hr IVPB Q8HR NIC[facility] Rx# :[id number] Potassium Chloride 10 meq 30 100 In Water For Injection 1 100ml.bag @ 100 mls/hr IVPB Q1HR NICHO Rx#: [id number] Oral 60 Output: Urine 200 200 Other: Voiding Method Urinal Urinal Incontinent Incontinent # Voids 4 # Bowel Movements 1 1 - Labs CBC & Chem 7: 12/07/21 06:16 12/08/21 06:55 Labs: Abnormal Lab Results - Last 24 Hours (Table) 12/07/21 12/07/21 12/08/21 Range/Units 06:16 06:16 06:55 WBC 3.61 L (4.50-10.00) X 10*3/uL RBC 3.35 L (4.40-5.60) X 10*6/uL Hgb 10.2 L (13.0-17.0) g/dL Hct 32.3 L (39.6-50.0) % MCHC 31.6 L (32.0-37.0) g/dL RDW 14.9 H (11.5-14.5) % Plt Count 106 L (140-440) X 10*3/uL Immature Gran # 0.05 H (0.00-0.04) X 10*3/uL Lymphocytes # 0.45 L (0.90-5.00) X 10*3/uL Monocytes # 0.10 L (0.20-1.00) X 10*3/uL Eosinophils # 0 L (0.04-0.35) X 10*3/uL Sodium 147 H (135-145) mmol/L Potassium 3.4 L 3.0 L (3.5-5.5) mmol/L Carbon Dioxide 31 H (22-30) mmol/L Glucose 123 H 102 H (70-110) mg/dL Calcium 8.6 L (8.7-10.3) mg/dL Microbiology - Last 24 Hours (Table) 12/04/21 16:55 Blood Culture - Preliminary Blood No Growth after 72 hours 12/04/21 16:40 Blood Culture - Preliminary Blood No Growth after 72 hours
[2021-12-09] MEDS: PIPERACILLIN-TAZOBACTAM 3.375 GM in SODIUM CHLORIDE 0.9% 100 ML IVPB SCH ×2 (00:59→08:17)
[2021-12-09] MEDS: IPRATROPIUM-ALBUTEROL 3 ML NEB INHALATION SCH ×3 (07:23→16:09)
[2021-12-09] MEDS: methylPREDNISolone SOD SUCCI 40 MG/ML 1 ML VIAL IV SCH (08:18)
[2021-12-09] MEDS: FAMOTIDINE 20 MG/2 ML VIAL IV SCH (08:18)
[2021-12-09] MEDS: HEPARIN SODIUM,PORCINE/PF 5,000 UNIT/0.5 ML SYRINGE SQ SCH (08:18)
[2021-12-09 12:22] VITALS: BP 137/76; PULSE 94; RESP 24; TEMP 98.4
--- NOTE | 2021-12-09 15:43 | P.DS ---
Providers Date of admission: 12/04/21 15:31 Expected date of discharge: 12/09/21 Attending physician: Zoran Dawn MD Primary care physician: Fabian Whatley [facility] Course: Final diagnosis Dysphagia. Status post EGD showed no evidence of esophagitis or esophageal stricture. Mild diffuse gastritis. Severe protein calorie malnutrition with a bmi of 20.7 Hypernatremia, improved COPD, with mild acute exacerbation Extensive muscle wasting Gait dysfunction Medical debility Possible some elements of metabolic encephalopathy History of methylenetetrahydrofolate reductase (blood clotting disorder) DVT prophylaxis: Subcutaneous heparin GI Prophylaxis: Pepcid full code Discharge disposition Patient is being discharged in a stable condition with guarded prognosis to [facility] for continued PT/OT therapy. Patient will follow-up with Dr. Fabian Whatley in the outpatient setting upon discharge. Patient is to continue with oral Augmentin liquid twice daily for the next 5 days and then may discontinue. Patient is to continue with pure dysphagia 1 diet with nectar thickened liquids and aspiration precautions. Total time taken is greater than 35 minutes. Hospital course This is a 76-year-old male who was recently admitted with increasing dysphagia with inability to drink and tolerate foods and possible aspiration pneumonia and was being closely monitored. Patient was started on IV antibiotics for possible aspiration pneumonia. Patient was seen and evaluated by GI and underwent endoscopy with no evidence esophagitis or esophageal stricture with some mild diffuse gastritis and healed ulcers in the stomach. Patient has been progressively becoming more weak and unable to tolerate oral intake and also increasing forgetfulness and weakness and mostly sleeping throughout the day. Patient is weak and was evaluated by physical therapy recommending subacute rehab and patient will be going to [facility] today for continued PT/OT therapy. She also was evaluated by speech therapy and is showing signs of aspiration and will continue on dysphagia 1 pured diet with aspiration precautions and nectar thickened liquids. GI also following inpatient refusing PEG tube placement at this time and will need to follow-up with GI in the outpatient setting if patient is agreeable to PEG tube. Hospice was also discussed although family is not ready or willing to proceed with this option at this time. Currently no reports of chest pain, worsening shortness of breath, or palpitations. Patient is afebrile. No reports of nausea or vomiting and patient is tolerating diet. Patient needs encouragement on eating and recommend aspiration precaution and supervision with meals. Patient will be going to [facility] today. Her prognosis. PHYSICAL EXAMINATION: GENERAL: The patient is alert and oriented x2-3, thin built, frail, elderly looking male HEENT: Pupils are round and equally reacting to light. EOMI. no scleral icterus. No conjunctival pallor. Normocephalic, atraumatic. No pharyngeal erythema. No thyromegaly. CARDIOVASCULAR: S1 and S2 muffled PULMONARY: diminished breath sounds bilaterally with some mild scattered rhonchi noted. ABDOMEN: soft. non-tender on exam. thin. non-distended, normoactive bowel sounds. No palpable organomegaly. MUSCULOSKELETAL: No joint swelling or deformity. EXTREMITIES: No cyanosis, clubbing, or pedal edema. NEUROLOGICAL: no focal deficits noted. diffuse weakness SKIN: No rashes. no lesions noted Please refer to medication reconciliation sheet for a list of medications. Patient Condition at Discharge: Stable Plan - Discharge Summary Discharge Rx Participant: No New Discharge Prescriptions: New Potassium Bicarbonate/Cit AC [K-Lyte] 20 meq PO DAILY #60 tab Amoxic-Pot Clav 400-57Mg/5Ml [Augmentin 400-57 mg/5 ml Susp] 5 ml PO Q12H 5 Days #50 ml Ipratropium-Albuterol Nebulize [Duoneb 0.5 mg-3 mg/3 ml Soln] 3 ml INHALATION RT-QID ml Ipratropium-Albuterol Nebulize [Duoneb 0.5 mg-3 mg/3 ml Soln] 3 ml INHALATION RT-TID PRN ml PRN Reason: Shortness Of Breath Or Wheezing Continue Folic Acid 1 mg PO HS Clopidogrel Bisulfate [Plavix] 75 mg PO HS Pantoprazole Sodium 40 mg PO BID Discontinued Potassium Chloride [Klor-Con M10] 10 meq PO DAILY Discharge Medication List Folic Acid 1 mg PO HS 11/26/19 [History] Clopidogrel Bisulfate [Plavix] 75 mg PO HS 11/30/21 [History] Pantoprazole Sodium 40 mg PO BID 11/30/21 [History] Amoxic-Pot Clav 400-57Mg/5Ml [Augmentin 400-57 mg/5 ml Susp] 5 ml PO Q12H 5 Days #50 ml 12/09/21 [Rx] Ipratropium-Albuterol Nebulize [Duoneb 0.5 mg-3 mg/3 ml Soln] 3 ml INHALATION RT-QID ml 12/09/21 [Rx] Ipratropium-Albuterol Nebulize [Duoneb 0.5 mg-3 mg/3 ml Soln] 3 ml INHALATION RT-TID PRN ml 12/09/21 [Rx] Potassium Bicarbonate/Cit AC [K-Lyte] 20 meq PO DAILY #60 tab 12/09/21 [Rx] Follow up Appointment(s)/Referral(s): Fabian Whatley DO [Primary Care Provider] - 1-2 days [facility], [NON-STAFF] - 1 Week Ambulatory/Diagnostic Orders: Basic Metabolic Panel [LAB.AMB] Time Frame: 3 Days, Location: None Selected Activity/Diet/Wound Care/Special Instructions: Patient is going to [facility]CF Activity as tolerated Patient to continue with physical therapy daily Patient to continue with dysphasia 1 pured diet with nectar thickened liquids, aspiration precautions, no straws Recommend repeat labs of BMP in 2-3 days to monitor potassium level and sodium level Patient to continue with Augmentin liquid and applesauce or with thickener for the next 5 days and then may discontinue Patient to be considered high risk for aspiration and high risk for falls Patient follow-up with primary care provider on discharge Discharge/Stand Alone Forms: Who Do I Call?, Help In The Home, Personal Sales Project Engineer Discharge Disposition: TRANSFER TO SNF/ECF
== END 2021-12-09 17:05 | DRG 391 ==
LOC: EC 10:08 → 5NMEDONC 15:31
PROVIDERS: ADMIT Internal Medicine; ATTEND Internal Medicine
PROC: 0DJ08ZZ Inspection of Upper Intestinal Tract, Via Natural or Artificial Opening Endoscopic (ICD-10-PCS; principal; 2021-12-05 06:45)
DX: R13.10 Dysphagia, unspecified (principal); J69.0 Pneumonitis due to inhalation of food and vomit; E43 Unspecified severe protein-calorie malnutrition; E87.0 Hyperosmolality and hypernatremia; J44.1 Chronic obstructive pulmonary disease with (acute) exacerbation; R64 Cachexia; E87.1 Hypo-osmolality and hyponatremia; E72.12 Methylenetetrahydrofolate reductase deficiency; E86.0 Dehydration; G30.9 Alzheimer's disease, unspecified; F02.80 Dementia in other diseases classified elsewhere, unspecified severity, without behavioral disturbance, psychotic disturbance, mood disturbance, and anxiety; K29.80 Duodenitis without bleeding; K57.30 Diverticulosis of large intestine without perforation or abscess without bleeding; R26.9 Unspecified abnormalities of gait and mobility; I25.10 Atherosclerotic heart disease of native coronary artery without angina pectoris; K29.70 Gastritis, unspecified, without bleeding; R53.81 Other malaise; Z68.20 Body mass index [BMI] 20.0-20.9, adult; Z86.010 Personal history of colon polyps; Z87.19 Personal history of other diseases of the digestive system; Z87.11 Personal history of peptic ulcer disease; Z79.02 Long term (current) use of antithrombotics/antiplatelets; Z87.891 Personal history of nicotine dependence; Z98.890 Other specified postprocedural states
CPT/HCPCS: 36410; 36415; 43235; 70450; 70491; 71046; 71260; 74230; 76937; 80048; 80053; 81001; 83605; 83735; 84132; 84145; 84439; 84443; 84484; 85025; 85610; 85730; 87040; 93005; 94640; 96361; 96365; 99285